=== PATIENT | male | born 1945 | race Caucasian/White ===

== ENCOUNTER 2017-04-13 23:11 | Emergency (ER) | payer MEDICARE ==
[~2017-04-13] VITALS: Ht 172.7 cm; Wt 74.8 kg
[~2017-04-13 23:11] MED LIST: DOXA4TAB2 PO; HYDR-3714 PO; IBUP800T26 PO; SIMV20TA3 PO; ZOCOR
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
[2017-04-13] MEDS ORDERED: NS IV 1000 ML 1,000 ML IV ONE (23:49)
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
[2017-04-14] LABS: BASOPHILS % (AUTO) 0 % (0-10); EOSINOPHILS # (AUTO) 0.1 10^3/uL (0.0-0.3); EOSINOPHILS % (AUTO) 1 % (0-10); HEMATOCRIT 42 % (40-54); HEMOGLOBIN 13.8 G/DL (13.3-17.7); LYMPHOCYTES # (AUTO) 1.8 X 10^3 (1.0-4.0); LYMPHOCYTES % (AUTO) 22 % (12-44); MEAN CORPUSCULAR HEMOGLOBIN 30 PG (25-34); MEAN CORPUSCULAR HGB CONC 33 G/DL (32-36); MEAN CORPUSCULAR VOLUME 91 FL (80-99); MEAN PLATELET VOLUME 10.3 FL (7.4-10.4); MONOCYTES # (AUTO) 0.8 X 10^3 (0.0-1.0); MONOCYTES % (AUTO) 10 % (0-12); NEUTROPHILS # (AUTO) 5.5 X 10^3 (1.8-7.8); NEUTROPHILS % (AUTO) 67 % (42-75); PLATELET COUNT 230 10^3/uL (130-400); RED BLOOD COUNT 4.65 10^6/uL (4.35-5.85); RED CELL DISTRIBUTION WIDTH 13.2 % (10.0-14.5); WHITE BLOOD COUNT 8.2 10^3/uL (4.3-11.0)
[2017-04-14] MEDS ORDERED: IOHEXOL 350 MG/ML 100 ML (OMNIPAQUE 350) VIAL IV ONE
[2017-04-14] MEDS ORDERED: NS 100 ML (IVPB) BAG IV ONE
[2017-04-14 00:09] LABS: INR 0.9 (0.8-1.4); PROTHROMBIN TIME PATIENT 11.9 SEC (12.2-14.7)
[2017-04-14 00:21] LABS: ALBUMIN 3.7 GM/DL (3.2-4.5); BILIRUBIN,TOTAL 0.3 MG/DL (0.1-1.0); CALCIUM 8.6 MG/DL (8.5-10.1); CREATININE SERUM 1.36 MG/DL (0.60-1.30); POTASSIUM 4.2 MMOL/L (3.6-5.0); TOTAL PROTEIN 6.9 GM/DL (6.4-8.2)
[2017-04-14 00:42] LABS: BILIRUBIN,URINE NEGATIVE (NEGATIVE); CLARITY,URINE CLEAR; COLOR,URINE YELLOW; GLUCOSE, URINE (UA) NEGATIVE (NEGATIVE); KETONES,URINE NEGATIVE (NEGATIVE); LEUKOCYTE ESTERASE ,URINE NEGATIVE (NEGATIVE); NITRITE,URINE NEGATIVE (NEGATIVE); PH,URINE 7 (5-9); PROTEIN,URINE 2+ (NEGATIVE); UROBILINOGEN,URINE NORMAL (NORMAL)
[2017-04-14 01:02] LABS: BACTERIA,URINE TRACE /HPF
[2017-04-14] MEDS ORDERED: KETOROLAC 30 MG/ML VIAL IVP ONE (01:15)
[2017-04-14] MEDS ORDERED: morphine INJ 10 MG/ML 1ML (SYR OR VIAL) IVP STA (01:30)
[2017-04-14] MEDS ORDERED: NAPR500T4 PO (02:17)
[2017-04-14] MEDS ORDERED: CYCL10TA9 PO (02:17)
[2017-04-14] MEDS ORDERED: ACHD5005 PO (02:17)
[2017-04-14 02:18] VITALS: BP 158/91
[2017-04-14] MEDS ORDERED: WALK1EAC23 MC (02:18)
--- NOTE | 2017-04-14 06:44 | Diagnostic Imaging Report ---
PROCEDURE: CT head and CT cervical spine without contrast. TECHNIQUE: Multiple contiguous axial images were obtained through the brain and cervical spine without the use of intravenous contrast. Sagittal and coronal reformations through the cervical spine were then performed. INDICATION: Pain, injury. FINDINGS: Head: There is no hemorrhage, hydrocephalus, edema, mass or mass effect. Orbits, sinuses and calvarium nonacute. CT CERVICAL SPINE: Degenerative changes are greatest at the C5-C6 level. No traumatic malalignment or fracture. No paravertebral hemorrhage. No high-grade canal stenosis. IMPRESSION: CT HEAD: No hemorrhage or acute pathology. CT CERVICAL SPINE: Degenerative changes without fracture or traumatic malalignment. Agree with preliminary. Dictated by: Dictated on workstation # [id number]
--- NOTE | 2017-04-14 06:50 | Diagnostic Imaging Report ---
INDICATION: Injury, fall, left-sided pain Thoracolumbar vertebral body heights are maintained. The alignment anatomic. No fracture or dislocation. No evidence for paravertebral hemorrhage. Wxnf-cl-isysppuw degenerative changes throughout the spine are present visualized portions of the sacrum nonacute. Partially visualized bilateral rib segments intact. No visualized dependent pleural fluid. IMPRESSION: No thoracolumbar spinal fracture or traumatic malalignment apparent at CT. Agree with the preliminary. Dictated by: Dictated on workstation # [id number]
--- NOTE | 2017-04-14 07:05 | Diagnostic Imaging Report ---
PROCEDURE: CT chest, abdomen, and pelvis with contrast. TECHNIQUE: Multiple contiguous axial images were obtained through the chest, abdomen, and pelvis after the administration of intravenous contrast. INDICATION: Fall landing on the left side of the body, pain. FINDINGS: CHEST: There is very mild left basilar partial atelectasis. No findings felt suggestive of a lung contusion or pulmonary laceration. Aorta is unremarkable. There is no pericardial or mediastinal hemorrhage. No pneumothorax. No chest wall fracture deformity identified. No lung mass. Abdomen and pelvis: There is intramuscular hematoma with active extravasation of contrast in the left gluteus medius musculature. At this time this does not result in a substantial mass effect or large hematoma. No sapgu-nojvr-dd extraperitoneal pelvic hemorrhage. There is no hemoperitoneum. Multiple gallstones are present. The liver, spleen, adrenals and pancreas otherwise unremarkable. The kidneys are unobstructed and normal. The bladder is intact. There is no bowel obstruction. The osseous structures of the abdomen and pelvis showed no fracture. There are degenerative changes involving left greater than right hips. IMPRESSION: Chest: Mild left basilar atelectasis otherwise negative. Abdomen and pelvis: Active contrast extravasation in the left gluteus medius muscle at this time. This has not formed a substantial hematoma but warrants close clinical followup. No visualized fracture. There are no findings of abdominopelvic solid or hollow visceral injury. Cholelithiasis noted. Spoken with the ER physician at the time of this dictation. Dictated by: Dictated on workstation # [id number]
--- NOTE | 2017-04-14 07:30 | Diagnostic Imaging Report ---
INDICATION: Fall. Left-sided pain including shoulder. 3 views right shoulder. FINDINGS: Glenohumeral joint is in good alignment. Joint spaces well preserved. Articulating surfaces are smooth. AC joint shows good alignment. There are no fractures. No significant degenerative changes. IMPRESSION: Negative right shoulder. Dictated by: Dictated on workstation # [id number]
--- NOTE | 2017-04-14 07:34 | Diagnostic Imaging Report ---
INDICATION: Fall from ladder left-sided shoulder and chest pain. FINDINGS: Portable chest show the lungs to be well-aerated. There are no infiltrates. No pneumothorax or pleural effusion. No rib fractures demonstrated. Heart is not enlarged. No pulmonary edema. Clavicles appear intact. IMPRESSION: Negative portable chest. Dictated by: Dictated on workstation # [id number]
--- NOTE | 2017-04-14 07:36 | Diagnostic Imaging Report ---
INDICATION: Fell from ladder. Hip pain on the left. EXAMINATION: AP pelvis with two views of the left hip. FINDINGS: Bony pelvis appears intact. SI joints are symmetrical with moderate sclerosis. Pubic symphysis appears normal. Right hip is in good alignment. Left hip shows good alignment. There is narrowing of joint space with sclerosis and subcortical cystic changes along the acetabulum and weightbearing surface of the left femoral head. Mild hypertrophic changes along the inferior femoral neck. There are no fractures. IMPRESSION: Finding consistent with moderate osteoarthritic disease of the hip without acute abnormalities. Dictated by: Dictated on workstation # [id number]
--- NOTE | 2017-04-14 07:42 | Diagnostic Imaging Report ---
INDICATION: Fall with left shoulder pain. EXAMINATION: Two views of the left shoulder with AP and scapular Y-view. FINDINGS: The glenohumeral joint is in good alignment. No fractures or dislocations demonstrated. Scapula appears intact. AC joint shows moderate hypertrophy. IMPRESSION: Moderate degenerative changes with no acute abnormalities. Dictated by: Dictated on workstation # [id number]
== END 2017-04-14 02:18 | disposition home or self-care (01) ==
LOC: EDUNIT# 23:11 → ER 23:12
DX: S09.90XA Unspecified injury of head, initial encounter (principal); S39.012A Strain of muscle, fascia and tendon of lower back, initial encounter; S30.0XXA Contusion of lower back and pelvis, initial encounter; S30.1XXA Contusion of abdominal wall, initial encounter; S40.012A Contusion of left shoulder, initial encounter; E78.00 Pure hypercholesterolemia, unspecified; R40.2142 Coma scale, eyes open, spontaneous, at arrival to emergency department; R40.2252 Coma scale, best verbal response, oriented, at arrival to emergency department; R40.2362 Coma scale, best motor response, obeys commands, at arrival to emergency department; Z85.46 Personal history of malignant neoplasm of prostate; Z90.79 Acquired absence of other genital organ(s); W18.30XA Fall on same level, unspecified, initial encounter
CPT/HCPCS: 36415; 70450; 71045; 71260; 72125; 72128; 72131; 73030; 74177; 80053; 81000; 85025; 85610; 85730; 96361; 96374; 96375

== ENCOUNTER 2020-02-15 09:32 | Emergency (ER) | payer OTHER, MEDICARE ==
[~2020-02-15] VITALS: Ht 172 cm; Wt 77.1 kg
[~2020-02-15 09:32] MED LIST changes: +ACHD5005 PO; +CYCL10TA9 PO; +NAPR-915 PO; +WALK1EAC23 MC
--- NOTE | 2020-02-15 10:28 | ED General ---
General Stated Complaint: FEVER, CONGESTION, SOB Source of Information: Patient Exam Limitations: No Limitations History of Present Illness Date Seen by Provider: Feb 15, 2020 Time Seen by Provider: 10:00 Initial Comments Mr. Ruff is a 75-year-old male who presents to the emergency room today with a chief complaint of subjective fever and some nasal congestion. Patient states that he was sitting in his recliner chair at 730 last night and noticed that he could not breathe at all out of the right side of his nose. Patient states that he feels like he had a little bit of a "cold" that settled in his nasal passageways and caused a little bit of subjective fever. Patient states he did not have a thermometer and did not check his temperature but thinks his temperature might have been somewhere around "99". Patient denies any productive cough or shortness of breath. After noticing his symptoms [facility] come to [facility] emergency room for evaluation. He denies any change in taste or smell. He denies any GI or symptoms although about 5 days ago he had a little bout of diarrhea that has since resolved. Patient denies any sick contacts with COVID-19. All other review of systems reviewed and negative except as stated above. Timing/Duration: 12-24 Hours Severity: Mild Associated Systoms: Fever/Chills (Subjective) Allergies and Home Medications Allergies Coded Allergies: No Known Drug Allergies (Unverified , 09/06/13) Home Medications Cyclobenzaprine HCl 10 Mg Tablet, 10 MG PO Q8H Prescribed by: LUCIA OLIVIER on 04/14/17216 Hydrocodone Bit/Acetaminophen 1 Tab Tab, 1 EACH PO Q4H Prescribed by: LUCIA OLIVIER on 04/14/17216 Naproxen 500 Mg Tablet, 500 MG PO BID Prescribed by: LUCIA OLIVIER on 04/14/17216 Simvastatin 20 Mg Tablet, 20 MG PO DAILY, (Reported) Patient Home Medication List Home Medication List Reviewed: Yes Review of Systems Review of Systems Constitutional: no symptoms reported, see HPI EENTM: no symptoms reported, nose congestion Respiratory: other (Nasal congestion) Cardiovascular: no symptoms reported Gastrointestinal: no symptoms reported Genitourinary: no symptoms reported Musculoskeletal: no symptoms reported Skin: no symptoms reported All Other Systems Reviewed Negative Unless Noted: Yes Past Xxyxknt-Nibzcr-Jvvgva Hx Patient Social History 2nd Hand Smoke Exposure: No Recent Foreign Travel: No Contact w/Someone Who Travel: No Recent Hopitalizations: No Seasonal Allergies Seasonal Allergies: No Past Medical History Surgeries: Yes Orthopedic, Prostatectomy Respiratory: No Cardiac: Yes High Cholesterol Neurological: No Prostate Problems Gastrointestinal: No Musculoskeletal: Yes Back Injury Endocrine: No Cancer: Yes Prostate Did You Recieve Any Treatments: Yes What Type of Treatment Did You: Surgical Intervention Psychosocial: No Integumentary: No Blood Disorders: No Physical Exam Vital Signs Capillary Refill : Height, Weight, BMI Height: 5'8" Weight: 165lbs. oz. 74.655697qa; BMI Method:Stated General Appearance: No Apparent Distress, WD/WN Eyes: Bilateral Eye Normal Inspection, Bilateral Eye PERRL, Bilateral Eye EOMI HEENT: PERRL/EOMI, TMs Normal, Normal ENT Inspection, Pharynx Normal Respiratory: Lungs Clear, Normal Breath Sounds, No Accessory Muscle Use, No Respiratory Distress Cardiovascular: Regular Rate, Rhythm Skin: Normal Color, Warm/Dry Progress/Results/Core Measures Suspected Sepsis SIRS Temperature: Pulse: Respiratory Rate: Blood Pressure / Mean: Results/Orders Vital Signs/I&O Capillary Refill : Progress Note : Time: 10:25 Progress Note 75-year-old male presents with a chief complaint of nasal congestion and subjective fever. Evaluation today includes a physical exam. The patient overall appears very healthy and well. He has no persistent complaints of nasal congestion. He believes that he might of just had a mild cold. Patient has no clinical or objective findings to warrant further investigation from the emergency department. I do not believe that he is infected with coronavirus at this time and does not require testing. He does not meet any criteria in for chest x-ray or extensive laboratory testing. Patient is comfortable with the plan of care which includes discharge to home with conservative treatment with decongestants and Vicks vapor rub. Patient verbalizes understanding, all questions are sought and answered he is stable for discharge. Departure Impression Primary Impression: Nasal congestion Disposition: 01 HOME, SELF-CARE Condition: Stable Departure-Patient Inst. Decision time for Depature: 10:26 Referrals: DINESH FLORES MD (PCP/Family) Primary Care Physician Patient Instructions: Cough, Runny Nose, and the Common Cold Add. Discharge Instructions: Drink plenty of fluids to stay well-hydrated. An hikl-eig-aeblyuk decongestant may be useful for your symptoms. Also Vicks vapor rub may help with nasal congestion. If you have any worsening symptoms including shortness of breath, high fever, chest pain or other emergent concerns please come back to the emergency department for reevaluation. FRANCES AUGUSTINE MD Feb 15, 2020 10:28
[2020-02-15 10:36] VITALS: BP 172/94
== END 2020-02-15 10:36 | disposition home or self-care (01) ==
LOC: EDUNIT# 09:32 → ER 09:34
DX: R09.81 Nasal congestion (principal); E78.00 Pure hypercholesterolemia, unspecified; Z85.46 Personal history of malignant neoplasm of prostate
CPT/HCPCS: 99283

== ENCOUNTER 2022-01-05 20:12 | Inpatient (IN) | payer OTHER, MEDICARE ==
[~2022-01-05] VITALS: Ht 173 cm; Wt 76.0 kg
[~2022-01-05 20:12] MED LIST changes: +CYCL10TA25 PO; -CYCL10TA9 PO
[2022-01-05] MEDS ORDERED: LABETALOL HCL 20 MG/4 ML VIAL IV ONE (20:30)
[2022-01-05 20:34] LABS: BASOPHILS % (AUTO) 0 % (0-10); EOSINOPHILS # (AUTO) 0.2 10^3/uL (0.0-0.3); EOSINOPHILS % (AUTO) 2 % (0-10); HEMATOCRIT 44 % (40-54); HEMOGLOBIN 14.2 g/dL (13.3-17.7); LYMPHOCYTES # (AUTO) 2.3 10^3/uL (1.0-4.0); LYMPHOCYTES % (AUTO) 33 % (12-44); MEAN CORPUSCULAR HEMOGLOBIN 30 pg (25-34); MEAN CORPUSCULAR HGB CONC 32 g/dL (32-36); MEAN CORPUSCULAR VOLUME 92 fL (80-99); MEAN PLATELET VOLUME 10.5 fL (9.0-12.2); MONOCYTES # (AUTO) 0.6 10^3/uL (0.0-1.0); MONOCYTES % (AUTO) 9 % (0-12); NEUTROPHILS % (AUTO) 56 % (42-75); PLATELET COUNT 220 10^3/uL (130-400); WHITE BLOOD COUNT 7.1 10^3/uL (4.3-11.0)
[2022-01-05 20:46] LABS: FIBRIN DEGRADATION PRODUCTS 0.83 UG/ML (0.00-0.49); INR 0.9 (0.8-1.4); PROTHROMBIN TIME PATIENT 12.3 SEC (12.2-14.7)
[2022-01-05] MEDS ORDERED: hydrALAZINE (APESOLINE) 20 MG/ML VIAL IV ONE ×2 (21:00→22:15)
--- NOTE | 2022-01-05 21:10 | Diagnostic Imaging Report ---
PROCEDURE: CT head wo r/o stroke. TECHNIQUE: Multiple contiguous axial images were obtained through the brain without the use of intravenous contrast. Auto Exposure Controls were utilized during the CT exam to meet ALARA standards for radiation dose reduction. INDICATION: Neurologic deficit COMPARISON: 04/14/2017 The ventricles and sulci are slightly increased in prominence however no hemorrhage is identified. There is no abnormal mass effect or shift of midline structures. Mucous retention cyst or polyp is again noted within the right maxillary sinus. There is partial opacification of right mastoid air cells. Periapical lucencies are seen involving anterior teeth. IMPRESSION: Further volume loss in the brain which may be related to chronic microvascular ischemia. No acute intracranial abnormality identified. There is progressive worsening of dentition and clinical correlation would be useful. Dictated by: Dictated on workstation # [id number]
--- NOTE | 2022-01-05 21:16 | Diagnostic Imaging Report ---
INDICATION: Hypertension AP view of chest is obtained with comparison made to study of 04/14/2017. FINDINGS: Heart size and pulmonary vascularity are within normal limits, and the lungs are clear, bilaterally. IMPRESSION: Unremarkable chest. Dictated by: Dictated on workstation # [id number]
[2022-01-05 21:18] LABS: ALANINE AMINOTRANSFERASE 16 U/L (0-55); ALBUMIN 4.1 GM/DL (3.2-4.5); ALKALINE PHOSPHATASE 88 U/L (40-136); BILIRUBIN,TOTAL 0.6 MG/DL (0.1-1.0); BUN/CREATININE RATIO 16; CALCIUM 9.2 MG/DL (8.5-10.1); CARBON DIOXIDE 25 MMOL/L (21-32); CHLORIDE 108 MMOL/L (98-107); CREATINE KINASE 88 U/L (30-200); CREATININE SERUM 1.22 MG/DL (0.60-1.30); GFR ESTIMATED 61; GLUCOSE 80 MG/DL (70-105); MAGNESIUM 1.9 MG/DL (1.6-2.4); POTASSIUM 4.1 MMOL/L (3.6-5.0); SODIUM 144 MMOL/L (135-145); TOTAL PROTEIN 7.6 GM/DL (6.4-8.2)
[2022-01-05] MEDS ORDERED: NS IV 1000 ML 1,000 ML IV SCH (21:30)
[2022-01-05 21:39] LABS: TSH (THYROID ANALYZER) 4.18 UIU/ML (0.35-4.94)
[2022-01-05] MEDS ORDERED: CATHETER FLUSH 10 ML SYR IV PRN (21:45)
[2022-01-05] MEDS ORDERED: IOHEXOL 350 MG/ML 100 ML (OMNIPAQUE 350) VIAL IV ONE (21:45)
[2022-01-05] MEDS ORDERED: NS 100 ML (IVPB) BAG IV ONE (21:45)
--- NOTE | 2022-01-05 21:56 | Diagnostic Imaging Report ---
PROCEDURE: CT angiography of the head and CT angiography of the neck with and without contrast. TECHNIQUE: Contiguous noncontrast images were obtained from the skull base through the vertex. After intravenous contrast administration, helical CT angiography of the neck was performed. Source data was reformatted into 3D MIP projections. Delayed post contrast acquisition was also obtained. Auto Exposure Controls were utilized during the CT exam to meet ALARA standards for radiation dose reduction. INDICATION: Dizziness There is a normal three-vessel branching pattern arising from the aortic arch. Carotid arteries are widely patent in the neck. Both vertebral arteries are also patent. There is no evidence of stenosis or occlusion. No intimal abnormality is identified. There is no evidence of pseudoaneurysm. There is mild lower cervical degenerative disc disease with fusion of the right C2-C3 facet joint. Anterior, middle and posterior cerebral arteries are of normal caliber without evidence of filling defect, occlusion or stenosis. No aneurysm or vascular malformation is identified. There is no abnormal contrast enhancement within the brain parenchyma. IMPRESSION: No CTA evidence of great vessel abnormality in the head or neck. Dictated by: Dictated on workstation # [id number]
[2022-01-05 23:35] VITALS: BP 183/85
[2022-01-06] MEDS ORDERED: SALINE NASAL SPRAY (OCEAN) 45 ML BTL PRN (00:45)
[2022-01-06] MEDS ORDERED: ETODOLAC 300 MG (LODINE) CAP PO PRN (00:45)
[2022-01-06] MEDS ORDERED: METHYL SALICYLATE/MENTHOL (BENGAY, MUSCLE RUB) 3 OZ TUBE TP PRN (00:45)
[2022-01-06] MEDS ORDERED: HYDROcodone/APAP 5 MG/325 MG (LORTAB) TAB PO PRN (00:45)
--- NOTE | 2022-01-06 00:57 | Tele-ICU Progress Note ---
Progress Note 76M with HTN presented with dizziness. Found to have BP 236/99. Given hydralazine 10 mg x2 doses with brief dips in BP before increasing back to the 220-240 range. Plans made for admission to ICU for cardene drip. On arrival to ICU BP 160-190, cardene not yet initiated. - hypertensive emergency: BP goal for first 24 hours 160-180. Current BP 166/81. Will hold off on initiation of the drip. PRN hydralazine ordered. Restart home lisinopril in AM. - back pain: continue home etodolac if availble from pharmacy. If not, ibuprofen. Will also order PRN benjamín Monroy. Focused Exam Height, Weight, BMI Height: 5'8" Weight: 165lbs. oz. 74.648095ks; 25.15 BMI Method:Stated PANDA CORONA MD Jan 06, 2022 00:57
[2022-01-06] MEDS: niCARdipine IV (Pyxis drip kit 50 MG in NS (IVPB) 230 ML IV SCH ×3 (01:23→16:12)
[2022-01-06] MEDS: hydrALAZINE (APESOLINE) 20 MG/ML VIAL IV PRN ×3 (02:39→16:05)
[2022-01-06] MEDS ORDERED: CALCIUM CARBONATE 500 MG (TUMS) TAB.CHEW PO PRN (04:15)
[2022-01-06 04:24] LABS: BASOPHILS % (AUTO) 0 % (0-10); EOSINOPHILS # (AUTO) 0.1 10^3/uL (0.0-0.3); EOSINOPHILS % (AUTO) 1 % (0-10); HEMATOCRIT 43 % (40-54); HEMOGLOBIN 14.2 g/dL (13.3-17.7); LYMPHOCYTES # (AUTO) 1.3 10^3/uL (1.0-4.0); LYMPHOCYTES % (AUTO) 13 % (12-44); MEAN CORPUSCULAR HEMOGLOBIN 30 pg (25-34); MEAN CORPUSCULAR HGB CONC 33 g/dL (32-36); MEAN CORPUSCULAR VOLUME 91 fL (80-99); MONOCYTES # (AUTO) 0.6 10^3/uL (0.0-1.0); MONOCYTES % (AUTO) 6 % (0-12); NEUTROPHILS % (AUTO) 80 % (42-75); PLATELET COUNT 207 10^3/uL (130-400)
[2022-01-06] MEDS ORDERED: NS IV 500 ML 500 ML IV PRN (04:30)
[2022-01-06 04:51] LABS: ALBUMIN 3.8 GM/DL (3.2-4.5); BILIRUBIN,TOTAL 0.6 MG/DL (0.1-1.0); CALCIUM 9.1 MG/DL (8.5-10.1); CREATININE SERUM 0.95 MG/DL (0.60-1.30); MAGNESIUM 1.8 MG/DL (1.6-2.4); PHOSPHORUS 1.7 MG/DL (2.3-4.7); POTASSIUM 3.7 MMOL/L (3.6-5.0)
[2022-01-06] MEDS ORDERED: morphine INJ 10 MG/ML 1ML (SYR OR VIAL) IVP STA (04:54)
[2022-01-06] MEDS ORDERED: oxyCODONE/APAP 5/325MG (PERCOCET 5) TABLET PO PRN (05:00)
[2022-01-06] MEDS: FAMOTIDINE 20 MG (PEPCID) TABLET PO SCH ×2 (05:25→21:30)
[2022-01-06] MEDS ORDERED: ONDANSETRON 4 MG/2 ML (SDV) Z0FRAN IVP PRN (05:45)
[2022-01-06] MEDS ORDERED: OXYMETAZOLINE (AFRIN) 0.05% NA 30 ML BTL PRN (05:45)
[2022-01-06] MEDS: POTASSIUM CL 10MEQ/50ML IVPB 50 ML IV SCH (05:56)
[2022-01-06] MEDS: MAGNESIUM 1 GM/100 ML IVPB 100 ML IV SCH (05:56)
[2022-01-06] MEDS: KCL 20 MEQ TAB (K-DUR) PO SCH (05:57)
[2022-01-06] MEDS: CATHETER FLUSH 10 ML SYR IVP SCH ×3 (05:57→20:16)
[2022-01-06] MEDS ORDERED: FLU QUAD HIGH DOSE 240 MCG/0.7 ML 2022-23 (FLUZONE) IM ONE (06:45)
[2022-01-06] MEDS: lisINopril 20 MG (PRINIVIL) TABLET PO SCH (08:03)
[2022-01-06] MEDS ORDERED: amLODIPine 5 MG (NORVASC) TAB PO SCH (09:00)
[2022-01-06] MEDS ORDERED: amLODIPine 5 MG (NORVASC) TAB PO NR (09:00)
[2022-01-06] MEDS ORDERED: meTOproloL SUCCINATE 50 MG (TOPROL XL) TAB PO NR (11:00)
[2022-01-06] MEDS ORDERED: ASPIRIN 81 MG CHEW (CHILDREN'S ASA) PO NR (11:00)
--- NOTE | 2022-01-06 11:07 | Consultation-Cardiology ---
HPI-Cardiology Cardiology Consultation: Date of Consultation 01/06/22 Time Seen by a Provider: 10:30 Date of Admission 01-06-22 Attending Physician Bing,[facility] Physician Admitting Physician Admitting Physician: Gaby Orr DO Attending Physician: Gaby Orr DO Consulting Physician Nancie Ascencio MD HPI: Chief Complaint: NSTEMI Mr. Ruff is a 76 yr old male who has been admitted to ICU 3 from the ED with c/o chest pressure, SOB and uncontrolled HTN. He reports he has chronic HTN. He reports his Lisinopril dose was just increased recently to 40mg daily. He states he took his BP on Wednesday morning and noted it to be 140's systolic. He reports he was getting laundry out of the washing machine on Wednesday night when he had a sudden onset of dizziness. He reports he developed chest tightness and SOB. He reports he had numbness in his left hand. He reports he checked his BP and noted it to be greater than 200 systolic. He called his daughter to take him to the ED. He reports the chest pressure and SOB persisted. He reports it did not change with movement. He states once in the ED he received Morphine IV, which did relive his chest pain. He is currently pain free. He reports n/v this morning. He is reporting some mild SOB at this time. Review of Systems-Cardiology Review of Systems Constitutional: No chills, No fever, No malaise Eyes: No vision change Ears/Nose/Throat: No epistaxis, No recent hearing loss Respiratory: As described under HPI Cardiovascular: As described under HPI Gastrointestinal: As described under HPI Genitourinary: No dysuria, No hematuria Skin: No rash on exposed areas, No ulcerations on exposed areas Psychiatric/Neurological: anxiety; No depression, No seizure, No focal weakness, No syncope Hematologic: No bleeding abnormalities TCB-[id number]-Csxqfi Hx Patient Social History Smoking Status: Never a Smoker Former smoker/When Quit: Jun 26, 1981 2nd Hand Smoke Exposure: No Have you traveled recently?: No Alcohol Use?: No Pt feels they are or have been: No Past Medical History PMH As described under Assessment. Family Medical History Family Medical History: He reports his mother passed from an [facility] at age 67yrs. He reports a sister who has had a stroke. Allergies and Home Medications Allergies Coded Allergies: No Known Drug Allergies (Unverified , 09/06/13) Patient Home Medication List Cyclobenzaprine HCl (Cyclobenzaprine HCl) 10 Mg Tablet, 10 MG PO Q8H Prescribed by: LUCIA OLIVIER on 04/14/17216 Doxazosin Mesylate (Doxazosin Mesylate) 4 Mg Tablet, 4 MG PO, (Reported) Entered as Reported by: MATT ART on 09/06/13 1032 Hydrocodone Bit/Acetaminophen (Lortab 5 Mg Tablet) 1 Tab Tab, 1 EACH PO Q4H Prescribed by: LUCIA OLIVIER on 04/14/17216 Naproxen (Naproxen) 500 Mg Tablet, 500 MG PO BID Prescribed by: LUCIA OLIVIER on 04/14/17216 Simvastatin (Simvastatin) 20 Mg Tablet, 20 MG PO DAILY, (Reported) Entered as Reported by: BASIM RODRIGUEZ on 06/26/14 1210 Walker (Ultra-Light Rollator) 1 Each Each, EACH [facility], (DME) Prescribed by: LUCIA OLIVIER on 04/14/17217 Physical Exam-Cardiology Physical Exam Vital Signs/I&O 01/06/22 01/06/22 01/06/22 01/06/22 03:57 04:00 04:00 05:00 Temp 37.0 Pulse 78 129 B/P (MAP) 174/85 (114) 189/88 (121) Pulse Ox 97 98 97 O2 Delivery Room Air Room Air Room Air 01/06/22 01/06/22 01/06/22 01/06/22 06:00 07:00 07:21 07:59 Temp 36.8 Pulse 63 60 66 B/P (MAP) 145/74 (97) 169/81 (110) Pulse Ox 98 O2 Delivery Room Air Room Air 01/06/22 01/06/22 01/06/22 01/06/22 08:00 08:00 09:00 10:00 Pulse 67 67 74 B/P (MAP) 165/77 (106) 167/82 (110) 178/81 (113) Pulse Ox 98 97 99 98 O2 Delivery Room Air Room Air Room Air Room Air 01/06/22 01/06/22 01/06/22 11:51 12:00 12:19 Temp 36.6 Pulse 82 Pulse Ox 98 O2 Delivery Room Air 01/05/22 23:59 Intake Total 1000 ml Balance 1000 ml Capillary Refill : Less Than 3 Seconds Constitutional: AAO x 3, well-developed, well-nourished HEENT: hearing is well preserved; No oral hygience is good (poor dention with missing teeth) Neck: No carotid bruit; carotid pulses are 2 + bilaterally Respiratory: No accessory muscle use, No respiratory distress; chest expansion is symmetric, chest is bilaterally symmetric, lungs clear to auscultation Cardiovascular: regular rate-rhythm; No JVD; S1 and S2 Gastrointestinal: No tender; soft, round, audible bowel sounds Extremities: no lower extremity edema bilateral Neurologic/Psychiatric: grossly intact (moves all extremities) Skin: No rash on exposed areas, No ulcerations on exposed areas Data Review Labs Laboratory Tests 01/05/22 20:20: White Blood Count 7.1, Red Blood Count 4.81, Hemoglobin 14.2, Hematocrit 44, Mean Corpuscular Volume 92, Mean Corpuscular Hemoglobin 30, Mean Corpuscular Hemoglobin Concent 32, Red Cell Distribution Width 12.4, Platelet Count 220, Mean Platelet Volume 10.5, Immature Granulocyte % (Auto) 0, Neutrophils (%) (Auto) 56, Lymphocytes (%) (Auto) 33, Monocytes (%) (Auto) 9, Eosinophils (%) (Auto) 2, Basophils (%) (Auto) 0, Neutrophils # (Auto) 4.0, Lymphocytes # (Auto) 2.3, Monocytes # (Auto) 0.6, Eosinophils # (Auto) 0.2, Basophils # (Auto) 0.0, Immature Granulocyte # (Auto) 0.0, Prothrombin Time 12.3, INR Comment 0.9, Activated Partial Thromboplast Time 33, D-Dimer 0.83H, Sodium Level 144, Potassium Level 4.1, Chloride Level 108H, Carbon Dioxide Level 25, Anion Gap 11, Blood Urea Nitrogen 20H, Creatinine 1.22, Estimat Glomerular Filtration Rate 61, BUN/Creatinine Ratio 16, Glucose Level 80, Calcium Level 9.2, Corrected Calcium 9.1, Magnesium Level 1.9, Total Bilirubin 0.6, Aspartate Amino Transf (AST/SGOT) 18, Alanine Aminotransferase (ALT/SGPT) 16, Alkaline Phosphatase 88, Total Creatine Kinase 88, Creatine Kinase MB 2.0, Myoglobin 51.7, Troponin I < 0.028, B-Type Natriuretic Peptide 50.5, Total Protein 7.6, Albumin 4.1, TSH [place] sting 4.18 01/05/22 20:30: Influenza Type A (RT-PCR) Not Detected, Influenza Type B (RT-PCR) Not Detected, SARS-CoV-2 RNA (RT-PCR) Not Detected 01/06/22 04:06: White Blood Count 10.0, Red Blood Count 4.73, Hemoglobin 14.2, Hematocrit 43, Mean Corpuscular Volume 91, Mean Corpuscular Hemoglobin 30, Mean Corpuscular Hemoglobin Concent 33, Red Cell Distribution Width 12.5, Platelet Count 207, Mean Platelet Volume 11.0, Immature Granulocyte % (Auto) 0, Neutrophils (%) (Auto) 80H, Lymphocytes (%) (Auto) 13, Monocytes (%) (Auto) 6, Eosinophils (%) (Auto) 1, Basophils (%) (Auto) 0, Neutrophils # (Auto) 8.0H, Lymphocytes # (Auto) 1.3, Monocytes # (Auto) 0.6, Eosinophils # (Auto) 0.1, Basophils # (Auto) 0.0, Immature Granulocyte # (Auto) 0.0, Sodium Level 142, Potassium Level 3.7, Chloride Level 110H, Carbon Dioxide Level 19L, Anion Gap 13, Blood Urea Nitrogen 15, Creatinine 0.95, Estimat Glomerular Filtration Rate 83, BUN/Creatinine Ratio 16, Glucose Level 131H, Calcium Level 9.1, Corrected Calcium 9.3, Magnesium Level 1.8, Total Bilirubin 0.6, Aspartate Amino Transf (AST/SGOT) 17, Alanine Aminotransferase (ALT/SGPT) 16, Alkaline Phosphatase 102, Troponin I 0.731*H, Total Protein 7.0, Albumin 3.8, Phosphorus Level 1.7L Radiology NAME: WINIFRED RUFF [facility] REC#: [id number] PT STATUS: REG ER : 1945 PHYSICIAN: LUCIA OLIVIER DO ADMIT DATE: 01/05/22/ER Signed Date of Exam:01/05/22 CHEST 1 VIEW, AP/PA ONLY INDICATION: Hypertension AP view of chest is obtained with comparison made to study of 04/14/2017. FINDINGS: Heart size and pulmonary vascularity are within normal limits, and the lungs are clear, bilaterally. IMPRESSION: Unremarkable chest. Dictated by: Dictated on workstation # [id number] Dict: 01/05/222112 Trans: 01/05/222128 [facility] [phone] Interpreted by: KULDIP VILLAGRAN MD Electronically signed by: KULDIP VILLAGRAN MD 01/05/222128 NAME: WINIFRED RUFF [facility] REC#: [id number] PT STATUS: ADM IN : 1945 PHYSICIAN: LUCIA OLIVIER DO ADMIT DATE: 01/05/22/ICU Signed Date of Exam:01/05/22 CT HEAD WO-R/O STROKE PROCEDURE: CT head wo r/o stroke. TECHNIQUE: Multiple contiguous axial images were obtained through the brain without the use of intravenous contrast. Auto Exposure Controls were utilized during the CT exam to meet ALARA standards for radiation dose reduction. INDICATION: Neurologic deficit COMPARISON: 04/14/2017 The ventricles and sulci are slightly increased in prominence however no hemorrhage is identified. There is no abnormal mass effect or shift of midline structures. Mucous retention cyst or polyp is again noted within the right maxillary sinus. There is partial opacification of right mastoid air cells. Periapical lucencies are seen involving anterior teeth. IMPRESSION: Further volume loss in the brain which may be related to chronic microvascular ischemia. No acute intracranial abnormality identified. There is progressive worsening of dentition and clinical correlation would be useful. Dictated by: Dictated on workstation # [id number] Dict: 01/05/222104 Trans: 01/06/22913 [facility] [phone] Interpreted by: KULDIP VILLAGRAN MD Electronically signed by: KULDIP VILLAGRAN MD 01/06/22913 NAME: WINIFRED RUFF [facility] REC#: [id number] PT STATUS: ADM IN : 1945 PHYSICIAN: LUCIA OLIVIER DO ADMIT DATE: 01/05/22/ICU Signed Date of Exam:01/05/22 CT ANGIO HEAD/NECK PROCEDURE: CT angiography of the head and CT angiography of the neck with and without contrast. TECHNIQUE: Contiguous noncontrast images were obtained from the skull base through the vertex. After intravenous contrast administration, helical CT angiography of the neck was performed. Source data was reformatted into 3D MIP projections. Delayed post contrast acquisition was also obtained. Auto Exposure Controls were utilized during the CT exam to meet ALARA standards for radiation dose reduction. INDICATION: Dizziness There is a normal three-vessel branching pattern arising from the aortic arch. Carotid arteries are widely patent in the neck. Both vertebral arteries are also patent. There is no evidence of stenosis or occlusion. No intimal abnormality is identified. There is no evidence of pseudoaneurysm. There is mild lower cervical degenerative disc disease with fusion of the right C2-C3 facet joint. Anterior, middle and posterior cerebral arteries are of normal caliber without evidence of filling defect, occlusion or stenosis. No aneurysm or vascular malformation is identified. There is no abnormal contrast enhancement within the brain parenchyma. IMPRESSION: No CTA evidence of great vessel abnormality in the head or neck. Dictated by: Dictated on workstation # [id number] Dict: 01/05/22 2144 Trans: 01/06/2214 [facility] [phone] Interpreted by: KULDIP VILLAGRAN MD Electronically signed by: KULDIP VILLAGRAN MD 01/06/22 0914 ECG Impression ECG Initial ECG Impression: Sinus Bradycardia A/P-Cardiology Assessment/Admission Diagnosis NSTEMI Uncontrolled HTN HLD - statin tx - [facility] H/O gallstones per pt report H/O tobaccoism - quit greater than 10 yrs ago Emphysema H/O prostate cancer - h/o prostatectomy in 2016 Family h/o CAD - mother passed from [facility] age 67 yrs Discussion and Recomendations NSTEMI - advise cardiac cath. We have discussed the procedure, risks, benefits and potential complications of cardiac cath with possible PCI. He verbalizes understanding and provides informed consent. Uncontrolled HTN - start Toprol XL HLD - continue statin Start ASA Echocardiogram today Monitor lab closely Further recs will be based on his hospital course We would like to thank medical services for this consult BEBO JEFFREY Jan 06, 2022 11:07
--- NOTE | 2022-01-06 11:16 | History & Physical ---
JACKIESHAAN Gottlieb 01/06/22 1116: History of Present Illness History of Present Illness Reason for visit/HPI CC: Dizziness 70yo M with h/o HTN, HLD, and emphysema was admitted to the ICU this morning after presenting to the ED yesterday with acute onset chest tightness and dizziness. Last night, pt experienced an episode of dizziness while bending over to empty the washer causing him to stumble into the washer. Pt states that he has experienced a similar episode a few years ago due to high blood pressure. Pt checked his BP and found it to be greater than 200 systolic, prompting him to go to the ED. In the ED, pt's BP was found to be 236/99. Workup was remarkable for an elevated D-dimer of .83. CXR and CTA head and neck were unremarkable. CT Head was remarkable for volume loss from chronic microvascular ischemia but otherwise no acute intracranial abnormalities were noted. EKG was remarkable for bradycardia. Pt was given 10mg Hydralazine x2 in the ED which did initially lower his BP but exhibited rebound to the 220-240s systolic. Pt was admitted to the ICU for hypertensive urgency. Pt presented to the ICU in the 160-190s systolic, so cardene drip was held and hydralazine was made prn. Overnight, pt experienced nausea, vomiting, VALDERRAMA localized to the sinuses, burning abd pain, and continued chest tightness. All symptoms resolved following administration of IV morphine. Today, workup was remarkable for an elevated troponin of 0.731 suggestive of a type II NSTEMI in the setting of his hypertension. In room, pt is laying comfortably in bed. Pt notes a mild "sinus VALDERRAMA" localized over his f rontal sinuses but otherwise has no complaints. Pt states that he is [place] for [place] and noted that his lisinopril was recently increased from 20mg to 40mg. Pt has not had a BM since admission but continues to void without issue. Pt denies current nausea, vomiting, SOA, CP, abd pain, and diarrhea. Imaging: NAME: WINIFRED DAUGHERTY [facility] REC#: [id number] PT STATUS: REG ER : 1945 PHYSICIAN: LUCIA OLIVIER DO ADMIT DATE: 01/05/22/ER Signed Date of Exam:01/05/22 CHEST 1 VIEW, AP/PA ONLY INDICATION: Hypertension AP view of chest is obtained with comparison made to study of 04/14/2017. FINDINGS: Heart size and pulmonary vascularity are within normal limits, and the lungs are clear, bilaterally. IMPRESSION: Unremarkable chest. Dictated by: Dictated on workstation # [id number] Dict: 01/05/222112 Trans: 01/05/222128 [id number] Interpreted by: KULDIP VILLAGRAN MD Electronically signed by: KULDIP VILLAGRAN MD 01/05/222128 NAME: WINIFRED DAUGHERTY [facility] REC#: [id number] PT STATUS: ADM IN : 1945 PHYSICIAN: LUCIA OLIVIER DO ADMIT DATE: 01/05/22/ICU Signed Date of Exam:01/05/22 CT HEAD WO-R/O STROKE PROCEDURE: CT head wo r/o stroke. TECHNIQUE: Multiple contiguous axial images were obtained through the brain without the use of intravenous contrast. Auto Exposure Controls were utilized during the CT exam to meet ALARA standards for radiation dose reduction. INDICATION: Neurologic deficit COMPARISON: 04/14/2017 The ventricles and sulci are slightly increased in prominence however no hemorrhage is identified. There is no abnormal mass effect or shift of midline structures. Mucous retention cyst or polyp is again noted within the right maxillary sinus. There is partial opacification of right mastoid air cells. Periapical lucencies are seen involving anterior teeth. IMPRESSION: Further volume loss in the brain which may be related to chronic microvascular ischemia. No acute intracranial abnormality identified. There is progressive worsening of dentition and clinical correlation would be useful. Dictated by: Dictated on workstation # [id number] Dict: 01/05/222104 Trans: 01/06/22913 [facility] [id number] Interpreted by: KULDIP VILLAGRAN MD Electronically signed by: KULDIP VILLAGRAN MD 01/06/22913 NAME: OSBALDO DAUGHERTYEL Boone [facility] REC#: [id number] PT STATUS: ADM IN : 1945 PHYSICIAN: LUCIA OLIVIER DO ADMIT DATE: 01/05/22/ICU Signed Date of Exam:01/05/22 CT ANGIO HEAD/NECK PROCEDURE: CT angiography of the head and CT angiography of the neck with and without contrast. TECHNIQUE: Contiguous noncontrast images were obtained from the skull base through the vertex. After intravenous contrast administration, helical CT angiography of the neck was performed. Source data was reformatted into 3D MIP projections. Delayed post contrast acquisition was also obtained. Auto Exposure Controls were utilized during the CT exam to meet ALARA standards for radiation dose reduction. INDICATION: Dizziness There is a normal three-vessel branching pattern arising from the aortic arch. Carotid arteries are widely patent in the neck. Both vertebral arteries are also patent. There is no evidence of stenosis or occlusion. No intimal abnormality is identified. There is no evidence of pseudoaneurysm. There is mild lower cervical degenerative disc disease with fusion of the right C2-C3 facet joint. Anterior, middle and posterior cerebral arteries are of normal caliber without evidence of filling defect, occlusion or stenosis. No aneurysm or vascular malformation is identified. There is no abnormal contrast enhancement within the brain parenchyma. IMPRESSION: No CTA evidence of great vessel abnormality in the head or neck. Dictated by: Dictated on workstation # [id number] Dict: 01/05/224 Trans: 01/06/22913 [facility] [id number] Interpreted by: KULDIP VILLAGRAN MD Electronically signed by: KULDIP VILLAGRAN MD 01/06/2214 Date of Admission Jan 05, 2022 at 22:50 Date Seen by a Provider: Jan 06, 2022 Time Seen by a Provider: 11:16 I consulted on this patient on 01/06/22 11:16 Attending Physician No,Local Physician Admitting Physician Admitting Physician: Gaby Gomez DO Attending Physician: Gaby Gomez DO Consult Allergies and Home Medications Allergies Coded Allergies: No Known Drug Allergies (Unverified , 09/06/13) Patient Home Medication List Home Medication List Reviewed: Yes Cyclobenzaprine HCl (Cyclobenzaprine HCl) 10 Mg Tablet, 10 MG PO Q8H Prescribed by: LUCIA OLIVIER on 04/14/17 0217 Doxazosin Mesylate (Doxazosin Mesylate) 4 Mg Tablet, 4 MG PO, (Reported) Entered as Reported by: MATT ART on 09/06/13 1032 Hydrocodone Bit/Acetaminophen (Lortab 5 Mg Tablet) 1 Tab Tab, 1 EACH PO Q4H Prescribed by: LUCIA OLIVIER on 04/14/17216 Naproxen (Naproxen) 500 Mg Tablet, 500 MG PO BID Prescribed by: LUCIA OLIVIER on 04/14/17216 Simvastatin (Simvastatin) 20 Mg Tablet, 20 MG PO DAILY, (Reported) Entered as Reported by: BASIM RODRIGUEZ on 06/26/14 1210 Walker (Ultra-Light Rollator) 1 Each Each, EACH , (DME) Prescribed by: LUCIA OLIVIER on 04/14/17217 Past Hsirlqn-Jqvuje-Pewkel Hx Patient Social History Tobacco Use?: No Tobacco type used: Cigarettes Smoking Status: Former Smoker (15 pack years) Use of E-Cig and/or Vaping dev: No Substance use?: No Alcohol Use?: No Pt feels they are or have been: No Immunizations Up To Date Tetanus Booster (TDap): Unknown Seasonal Allergies Seasonal Allergies: No Current Status Advance Directives: Yes Advance Directive Location: copy on file per pt Communicates: Verbally Primary Language: [place] Preferred Spoken Language: [place] Is interpretation needed?: No Past Medical History Surgeries: Orthopedic, Prostatectomy High Cholesterol, Hypertension Prostate Problems Back Injury Prostate Did You Recieve Any Treatments: Yes What Type of Treatment Did You: Surgical Intervention Blood Disorders: No Review of Systems Constitutional: No chills, No diaphoresis EENTM: No hearing loss, No ear pain Respiratory: No cough, No dyspnea on exertion Cardiovascular: No chest pain, No edema Gastrointestinal: No abdominal pain, No constipation, No diarrhea, No nausea, No vomiting Genitourinary: No decreased output, No discharge Musculoskeletal: No back pain, No gout Skin: No change in color, No change in hair/nails Psychiatric/Neurological: Denies Anxiety, Denies Depressed All Other Systems Reviewed Negative Unless Noted: Yes Physical Exam Vital Signs Vital Signs - First Documented 01/05/22 01/05/22 20:17 23:48 Temp 36.6 Pulse 64 Resp 35 B/P (MAP) 236/99 (144) Pulse Ox 98 O2 Delivery Room Air Capillary Refill : Less Than 3 Seconds Height, Weight, BMI Height: 5'8" Weight: 165lbs. oz. 74.980451wn; 25.32 BMI Method:Stated General Appearance: No Apparent Distress, WD/WN HEENT: PERRL/EOMI, Moist Mucous Membranes Neck: Normal Inspection, Supple Respiratory: Chest Non Tender, Lungs Clear, Normal Breath Sounds, No Accessory Muscle Use, No Respiratory Distress Cardiovascular: Regular Rate, Rhythm, No Edema, No Gallop, No Murmur Gastrointestinal: No Pulsatile Mass, Non Tender, Soft Back: Normal Inspection, No CVA Tenderness Extremity: Normal Inspection, No Calf Tenderness, No Pedal Edema Neurologic/Psychiatric: Alert, Oriented x3 Skin: Normal Color, Warm/Dry Lymphatic: No Adenopathy Assessment/Plan Assessment and Plan 1. Hypertensive Urgency -BP currently 169/81 on hydralazine prn and 5mg PO Norvasc -Cardiology has added 50 mg PO Toprol XL and 81mg PO ASA 2. NSTEMI -elevated troponins of 0.731 indicating type II NSTEMI d/t HTN -Cardiology has been consulted >ECHO ordered for today per cardiology >cardiac cath with possible PCI today 3. Chronic HTN -on 40mg Lisinopril at home, followed [place] [facility] [place] 4. HLD -Simvastatin at home, followed by [facility] in [place] 5. H/o Prostate Cancer -prostectomy in 2015 6. H/o Urinary Incontinence -surgical device implanted (pt called a UAS) in 2018 which resolved issue 7. Emphysema 8. H/o Gallstones 9. H/o Tobaccoism -15 pack yr, quit >10yrs ago Plan: Cardiology has been consulted. Pt will have a cardiac cath with possible PCI today and ECHO, per cardiology note started on 5mg Norvasc PO Continue to monitor BP Admission Diagnosis Hypertensive Urgency Admission Status: Inpatient Order (span 2 midnights) Reason for Inpatient Admission: Hypertensive urgency GOMEZKATE MONIQUEDe MUNIZ 01/07/22 0526: History of Present Illness History of Present Illness Reason for visit/HPI CC: HTN urgency HPI: This is a 76yoWM clinic patient of [place] who presented with HTN urgency and placed on a Cardene drip. Elevated troponin prompted Cardiology consultation. Allergies and Home Medications Allergies Coded Allergies: No Known Drug Allergies (Unverified , 09/06/13) Patient Home Medication List Cyclobenzaprine HCl (Cyclobenzaprine HCl) 10 Mg Tablet, 10 MG PO Q8H Prescribed by: LUCIA OLIVIER on 04/14/17 0217 Doxazosin Mesylate (Doxazosin Mesylate) 4 Mg Tablet, 4 MG PO, (Reported) Entered as Reported by: MATT ART on 09/06/13 1032 Hydrocodone Bit/Acetaminophen (Lortab 5 Mg Tablet) 1 Tab Tab, 1 EACH PO Q4H Prescribed by: LUCIA OLIVIER on 04/14/17216 Naproxen (Naproxen) 500 Mg Tablet, 500 MG PO BID Prescribed by: LUCIA OLIVIER on 04/14/17216 Simvastatin (Simvastatin) 20 Mg Tablet, 20 MG PO DAILY, (Reported) Entered as Reported by: BASIM RODRIGUEZ on 06/26/14 1210 Walker (Ultra-Light Rollator) 1 Each Each, EACH [facility], (DME) Prescribed by: LUCIA OLIVIER on 04/14/17217 Past Yqmppsj-Kvebjg-Jdlkpg Hx Patient Social History Marrital Status: single Employed/Student: retired Smoking Status: Former Smoker (15 pack years) Past Medical History High Cholesterol, Hypertension Review of Systems Constitutional: see HPI Cardiovascular: chest pain Physical Exam General Appearance: No Apparent Distress, WD/WN, Chronically ill Eyes: Bilateral Eye Normal Inspection, Bilateral Eye PERRL, Bilateral Eye EOMI HEENT: PERRL/EOMI, Normal ENT Inspection, Pharynx Normal Neck: Full Range of Motion, Normal Inspection, Non Tender, Supple, Carotid Bruit Respiratory: Chest Non Tender, Lungs Clear, Normal Breath Sounds, No Accessory Muscle Use, No Respiratory Distress Cardiovascular: Regular Rate, Rhythm, No Edema, No Gallop, No JVD, No Murmur, Normal Peripheral Pulses Gastrointestinal: Normal Bowel Sounds, No Organomegaly, No Pulsatile Mass, Non Tender, Soft Back: Normal Inspection, No CVA Tenderness, No Vertebral Tenderness Extremity: Normal Capillary Refill, Normal Inspection, Normal Range of Motion, Non Tender, No Calf Tenderness, No Pedal Edema Neurologic/Psychiatric: Alert, Oriented x3, No Motor/Sensory Deficits, Normal Mood/Affect Skin: Normal Color, Warm/Dry Lymphatic: No Adenopathy Assessment/Plan Assessment and Plan Cardiology Stephanie campbell Supervisory-Addendum Brief Verification & Attestation Participated in pt care: history, MDM, physical Personally performed: exam, history, MDM, supervision of care Care discussed with: Medical Student Procedures: n/a Results interpretation: Verified all documentation Verification and Attestation of Medical Student E/M Service A medical student performed and documented this service in my presence. I re viewed and verified all information documented by the medical student and made modifications to such information, when appropriate. I personally performed the physical exam and medical decision making. Gaby Gomez, Jan 07, 2022,05:24 SHAAN KARIMI Jan 06, 2022 11:16 GABY GOMEZ DO Jan 07, 2022 05:26
[2022-01-06] MEDS ORDERED: LIDOCAINE 1% INJ 30 ML (XYLOCAINE) VIAL ONE (11:50)
[2022-01-06] MEDS ORDERED: HEParin (CATH LAB) 2,000 ML IV ONE (11:50)
[2022-01-06] MEDS ORDERED: PROMETHAZINE INJ 25 MG/ML (PHENERGAN) AMP IM PRN (12:00)
[2022-01-06] MEDS ORDERED: NS IV 1000 ML 1,000 ML ONE (13:28)
[2022-01-06] MEDS ORDERED: fentaNYL INJ 100 MCG/2 ML AMP ONE (13:28)
[2022-01-06] MEDS ORDERED: MIDAZOLAM 5 MG/5 ML (VERSED) VIAL ONE (13:28)
[2022-01-06] MEDS ORDERED: NS IV 1000 ML 1,000 ML IV SCH (14:30)
[2022-01-06] MEDS ORDERED: diphenhydrAMINE 50 MG/ML INJ (BENADRYL) ONE (14:42)
--- NOTE | 2022-01-06 15:18 | Consultation-Cardiology ---
HPI-Cardiology Cardiology Consultation: Date of Consultation 01/06/22 Time Seen by a Provider: 11:30 Date of Admission Attending Physician Bing,Local Physician Admitting Physician Admitting Physician: Gaby Orr DO Attending Physician: Gaby Orr DO Consulting Physician RIC MANNING MD, MA, FACP, FACC, [facility], CCDS Physician requesting consult: Dr Orr HPI: Chief Complaint: Reason for Card consult Mr. Ruff is a 76 yr old male who has been admitted to ICU 3 from the ED with c/o chest pressure, SOB and uncontrolled HTN. He reports he has chronic HTN. He reports his Lisinopril dose was just increased recently to 40mg daily. He states he took his BP on Wednesday morning and noted it to be 140's systolic. He reports he was getting laundry out of the washing machine on Wednesday night when he had a sudden onset of dizziness. He reports he developed chest tightness and SOB. He reports he had numbness in his left hand. He reports he checked his BP and noted it to be greater than 200 systolic. He called his daughter to take him to the ED. He reports the chest pressure and SOB persisted. He reports it did not change with movement. He states once in the ED he received Morphine IV, which did relive his chest pain. He is currently pain free. He reports n/v this morning. He is reporting some mild SOB at this time. Review of Systems-Cardiology Review of Systems Constitutional: No chills, No fever, No malaise Eyes: No vision change Ears/Nose/Throat: No epistaxis, No recent hearing loss Respiratory: As described under HPI Cardiovascular: As described under HPI Gastrointestinal: As described under HPI Genitourinary: No dysuria, No hematuria Skin: No rash on exposed areas, No ulcerations on exposed areas Psychiatric/Neurological: anxiety; No depression, No seizure, No focal weakness, No syncope Hematologic: No bleeding abnormalities All Other Systems Reviewed Negative Unless Noted: Yes CFD-Lxqdiq-Zxcemj Hx Patient Social History Smoking Status: Former Smoker (15 pack years) Former smoker/When Quit: Jun 26, 1981 2nd Hand Smoke Exposure: No Have you traveled recently?: No Alcohol Use?: No Pt feels they are or have been: No Tobacco type used: Cigarettes Past Medical History PMH As described under Assessment. Family Medical History Family Medical History: He reports his mother passed from an [place] at age 67yrs. He reports a sister who has had a stroke. Allergies and Home Medications Allergies Coded Allergies: No Known Drug Allergies (Unverified , 09/06/13) Patient Home Medication List Home Medication List Reviewed: Yes Cyclobenzaprine HCl (Cyclobenzaprine HCl) 10 Mg Tablet, 10 MG PO Q8H Prescribed by: LUCIA OLIVIER on 04/14/17216 Doxazosin Mesylate (Doxazosin Mesylate) 4 Mg Tablet, 4 MG PO, (Reported) Entered as Reported by: MATT ART on 09/06/13 1032 Hydrocodone Bit/Acetaminophen (Lortab 5 Mg Tablet) 1 Tab Tab, 1 EACH PO Q4H Prescribed by: LUCAI OLIVIER on 04/14/17216 Naproxen (Naproxen) 500 Mg Tablet, 500 MG PO BID Prescribed by: LUCIA OLIVIER on 04/14/17216 Simvastatin (Simvastatin) 20 Mg Tablet, 20 MG PO DAILY, (Reported) Entered as Reported by: BASIM RODRIGUEZ on 06/26/14 1210 Walker (Ultra-Light Rollator) 1 Each Each, EACH [facility], (DME) Prescribed by: LUCIA OLIVIER on 04/14/17217 Physical Exam-Cardiology Physical Exam Vital Signs/I&O 01/06/22 01/06/22 01/06/22 01/06/22 03:57 04:00 04:00 05:00 Temp 37.0 Pulse 78 129 B/P (MAP) 174/85 (114) 189/88 (121) Pulse Ox 97 98 97 O2 Delivery Room Air Room Air Room Air 01/06/22 01/06/22 01/06/22 01/06/22 06:00 07:00 07:21 07:59 Temp 36.8 Pulse 63 60 66 B/P (MAP) 145/74 (97) 169/81 (110) Pulse Ox 98 O2 Delivery Room Air Room Air 01/06/22 01/06/22 01/06/22 01/06/22 08:00 08:00 09:00 10:00 Pulse 67 67 74 B/P (MAP) 165/77 (106) 167/82 (110) 178/81 (113) Pulse Ox 98 97 99 98 O2 Delivery Room Air Room Air Room Air Room Air 01/06/22 01/06/22 01/06/22 11:51 12:00 12:19 Temp 36.6 Pulse 82 Pulse Ox 98 O2 Delivery Room Air 01/06/22 00:00 Intake Total 1000 ml Balance 1000 ml Capillary Refill : Less Than 3 Seconds Constitutional: AAO x 3, well-developed, well-nourished HEENT: hearing is well preserved; No oral hygience is good (poor dention with m issing teeth) Neck: No carotid bruit; carotid pulses are 2 + bilaterally Respiratory: No accessory muscle use, No respiratory distress; chest expansion is symmetric, chest is bilaterally symmetric, lungs clear to auscultation Cardiovascular: regular rate-rhythm; No JVD; S1 and S2, systolic murmur (2/6 MSM) Gastrointestinal: No tender; soft, round, audible bowel sounds Extremities: no lower extremity edema bilateral Neurologic/Psychiatric: grossly intact (moves all extremities) Skin: No rash on exposed areas, No ulcerations on exposed areas Data Review Labs Laboratory Tests 01/05/22 20:20: White Blood Count 7.1, Red Blood Count 4.81, Hemoglobin 14.2, Hematocrit 44, Mean Corpuscular Volume 92, Mean Corpuscular Hemoglobin 30, Mean Corpuscular Hemoglobin Concent 32, Red Cell Distribution Width 12.4, Platelet Count 220, Mean Platelet Volume 10.5, Immature Granulocyte % (Auto) 0, Neutrophils (%) (Auto) 56, Lymphocytes (%) (Auto) 33, Monocytes (%) (Auto) 9, Eosinophils (%) (Auto) 2, Basophils (%) (Auto) 0, Neutrophils # (Auto) 4.0, Lymphocytes # (Auto) 2.3, Monocytes # (Auto) 0.6, Eosinophils # (Auto) 0.2, Basophils # (Auto) 0.0, Immature Granulocyte # (Auto) 0.0, Prothrombin Time 12.3, INR Comment 0.9, Activated Partial Thromboplast Time 33, D-Dimer 0.83H, Sodium Level 144, Potassium Level 4.1, Chloride Level 108H, Carbon Dioxide Level 25, Anion Gap 11, Blood Urea Nitrogen 20H, Creatinine 1.22, Estimat Glomerular Filtration Rate 61, BUN/Creatinine Ratio 16, Glucose Level 80, Calcium Level 9.2, Corrected Calcium 9.1, Magnesium Level 1.9, Total Bilirubin 0.6, Aspartate Amino Transf (AST/SGOT) 18, Alanine Aminotransferase (ALT/SGPT) 16, Alkaline Phosphatase 88, Total Creatine Kinase 88, Creatine Kinase MB 2.0, Myoglobin 51.7, Troponin I < 0.028, B-Type Natriuretic Peptide 50.5, Total Protein 7.6, Albumin 4.1, TSH [place] Testing 4.18 01/05/22 20:30: Influenza Type A (RT-PCR) Not Detected, Influenza Type B (RT-PCR) Not Detected, SARS-CoV-2 RNA (RT-PCR) Not Detected 01/06/22 04:06: White Blood Count 10.0, Red Blood Count 4.73, Hemoglobin 14.2, Hematocrit 43, Mean Corpuscular Volume 91, Mean Corpuscular Hemoglobin 30, Mean Corpuscular Hemoglobin Concent 33, Red Cell Distribution Width 12.5, Platelet Count 207, Mean Platelet Volume 11.0, Immature Granulocyte % (Auto) 0, Neutrophils (%) (Auto) 80H, Lymphocytes (%) (Auto) 13, Monocytes (%) (Auto) 6, Eosinophils (%) (Auto) 1, Basophils (%) (Auto) 0, Neutrophils # (Auto) 8.0H, Lymphocytes # (Auto) 1.3, Monocytes # (Auto) 0.6, Eosinophils # (Auto) 0.1, Basophils # (Auto) 0.0, Immature Granulocyte # (Auto) 0.0, Sodium Level 142, Potassium Level 3.7, Chloride Level 110H, Carbon Dioxide Level 19L, Anion Gap 13, Blood Urea Nitrogen 15, Creatinine 0.95, Estimat Glomerular Filtration Rate 83, BUN/Creatinine Ratio 16, Glucose Level 131H, Calcium Level 9.1, Corrected Calcium 9.3, Magnesium Level 1.8, Total Bilirubin 0.6, Aspartate Amino Transf (AST/SGOT) 17, Alanine Aminotransferase (ALT/SGPT) 16, Alkaline Phosphatase 102, Troponin I 0.731*H, T otal Protein 7.0, Albumin 3.8, Phosphorus Level 1.7L A/P-Cardiology Assessment/Admission Diagnosis Mildly elevated troponin, likely due to uncontrolled hypertension at the time of presentation - no evidence of ac [place] - card cath on 01/06/22: no significant CAD, LVEDP 10 mmHg, LVEF 60% Uncontrolled HTN - echo on 01/06/22: The cavity size is normal. There is mild concentric hypertrophy. Systolic function is normal. The estimated ejection fraction is 60- 65%. There were no regional wall motion abnormalities identified. Doppler parameters are consistent with abnormal left ventricular relaxation (grade 1 diastolic dysfunction). Aortic valve: Thickening, consistent with sclerosis. HLD - [facility]in [facility] H/O gallstones per pt report H/O tobaccoism - quit greater than 10 yrs ago Emphysema H/O prostate cancer - h/o prostatectomy in 2016 Family h/o CAD - mother passed from [place] age 67 yrs Discussion and Recomendations Risk factor mod reviewed Adjust meds as needed for hypertension Continue statin for hyperlipidemia Discussed his CV issues and his cardiac w/u with him in detail Monitor lab closely Further recs will be based on his hospital course We would like to thank medical services for this consult RIC MANNING MD FACP FAC CCDS Jan 06, 2022 15:18
[2022-01-06] MEDS ORDERED: meTOprolol SUCCINATE 100 MG (TOPROL XL) TAB PO NR (15:30)
[2022-01-06] MEDS ORDERED: PATIENT MAY USE OWN MEDS, ALL PO SCH (15:30)
[2022-01-06] MEDS: CYCLOBENZAPRINE 10 MG (FLEXERIL) TAB PO PRN ×2 (15:38→15:42)
[2022-01-06] MEDS: NS IV 1000 ML 1,000 ML IV SCH (15:51)
[2022-01-07] MEDS: NS IV 1000 ML 1,000 ML IV SCH ×2 (03:39→04:08)
[2022-01-07 04:36] LABS: BASOPHILS % (AUTO) 0 % (0-10); EOSINOPHILS % (AUTO) 0 % (0-10); HEMATOCRIT 41 % (40-54); HEMOGLOBIN 13.1 g/dL (13.3-17.7); LYMPHOCYTES # (AUTO) 1.5 10^3/uL (1.0-4.0); LYMPHOCYTES % (AUTO) 16 % (12-44); MEAN CORPUSCULAR HEMOGLOBIN 30 pg (25-34); MEAN CORPUSCULAR HGB CONC 32 g/dL (32-36); MEAN CORPUSCULAR VOLUME 93 fL (80-99); MEAN PLATELET VOLUME 11.3 fL (9.0-12.2); MONOCYTES % (AUTO) 11 % (0-12); NEUTROPHILS # (AUTO) 6.8 10^3/uL (1.8-7.8); NEUTROPHILS % (AUTO) 73 % (42-75); PLATELET COUNT 204 10^3/uL (130-400); WHITE BLOOD COUNT 9.4 10^3/uL (4.3-11.0)
[2022-01-07] MEDS: CATHETER FLUSH 10 ML SYR IVP SCH (04:50)
[2022-01-07] MEDS: MAGNESIUM 1 GM/100 ML IVPB 100 ML IV SCH (04:51)
[2022-01-07] MEDS: niCARdipine IV (Pyxis drip kit 50 MG in NS (IVPB) 230 ML IV SCH (04:51)
[2022-01-07] MEDS: POTASSIUM CL 10MEQ/50ML IVPB 50 ML IV SCH (04:51)
[2022-01-07] MEDS: KCL 20 MEQ TAB (K-DUR) PO SCH (04:52)
[2022-01-07 05:08] LABS: ALBUMIN 3.4 GM/DL (3.2-4.5); BILIRUBIN,TOTAL 0.6 MG/DL (0.1-1.0); CREATININE SERUM 1.12 MG/DL (0.60-1.30); MAGNESIUM 1.9 MG/DL (1.6-2.4); PHOSPHORUS 2.9 MG/DL (2.3-4.7); POTASSIUM 3.8 MMOL/L (3.6-5.0); TOTAL PROTEIN 6.3 GM/DL (6.4-8.2)
[2022-01-07] MEDS: lisINopril 20 MG (PRINIVIL) TABLET PO SCH (08:24)
[2022-01-07] MEDS: FAMOTIDINE 20 MG (PEPCID) TABLET PO SCH (08:24)
[2022-01-07] MEDS ORDERED: amLODIPine 5 MG (NORVASC) TAB PO SCH (09:00)
[2022-01-07] MEDS ORDERED: meTOproloL SUCCINATE 50 MG (TOPROL XL) TAB PO SCH (09:00)
[2022-01-07] MEDS ORDERED: ASPIRIN 81 MG CHEW (CHILDREN'S ASA) PO SCH (09:00)
[2022-01-07] MEDS ORDERED: meTOprolol SUCCINATE 100 MG (TOPROL XL) TAB PO SCH (09:00)
--- NOTE | 2022-01-07 09:01 | Progress Note - Cardiology ---
Cardiology SOAP Progress Note Subjective: Sitting up in bed States he feels good Wants to go home No c/o CP, SOB, palpitations, syncope or near syncope Objective: I&O/Vital Signs 01/06/22 01/07/22 01/07/22 01/07/22 23:59 00:00 01:00 01:00 Pulse 50 51 46 B/P (MAP) 103/57 (78) 101/53 (83) Pulse Ox 98 93 95 O2 Delivery Room Air Room Air Room Air 01/07/22 01/07/22 01/07/22 01/07/22 02:00 03:00 04:00 04:00 Temp 37.0 Pulse 51 52 B/P (MAP) 139/81 (104) 122/70 (88) Pulse Ox 95 96 98 O2 Delivery Room Air Room Air Room Air 01/07/22 01/07/22 01/07/22 01/07/22 04:03 05:00 06:00 07:00 Pulse 49 44 44 57 B/P (MAP) 100/45 (70) 110/65 (89) 98/48 (65) 103/73 (83) Pulse Ox 93 93 95 95 O2 Delivery Room Air Room Air Room Air Room Air 01/07/22 01/07/22 01/07/22 01/07/22 07:07 08:00 08:00 09:00 Pulse 50 62 59 B/P (MAP) 138/80 (99) 146/76 (99) Pulse Ox 98 94 96 O2 Delivery Room Air Room Air Room Air 01/07/22 01/07/22 10:00 11:00 Pulse 53 51 B/P (MAP) 105/69 (81) 108/76 (87) Pulse Ox 96 95 O2 Delivery Room Air Room Air 01/07/22 00:00 Intake Total 200 ml Output Total 900 ml Balance -700 ml Weight (Pounds): 165 Weight (Calculated Kilograms): 74.957414 Side: right Groin site without hematoma: Yes Condition: DP/PT pulses palpable, extremity w/d/p Bruising: mild bruising Constitutional: AAO x 3, well-developed, well-nourished Respiratory: No accessory muscle use, No respiratory distress; chest expansion is symmetric, chest is bilaterally symmetric, lungs clear to auscultation Cardiovascular: regular rate-rhythm; No JVD; S1 and S2, systolic murmur (2/6 MSM) Gastrointestional: No tender; soft, round, audible bowel sounds Extremities: no lower extremity edema bilateral Neurologic/Psychiatric: grossly intact (moves all extremities) Skin: No rash on exposed areas, No ulcerations on exposed areas Results/Procedures: Labs Laboratory Tests 01/07/22 04:15: White Blood Count 9.4, Red Blood Count 4.38, Hemoglobin 13.1L, Hematocrit 41, Mean Corpuscular Volume 93, Mean Corpuscular Hemoglobin 30, Mean Corpuscular Hemoglobin Concent 32, Red Cell Distribution Width 12.9, Platelet Count 204, Mean Platelet Volume 11.3, Immature Granulocyte % (Auto) 0, Neutrophils (%) (Auto) 73, Lymphocytes (%) (Auto) 16, Monocytes (%) (Auto) 11, Eosinophils (%) (Auto) 0, Basophils (%) (Auto) 0, Neutrophils # (Auto) 6.8, Lymphocytes # (Auto) 1.5, Monocytes # (Auto) 1.0, Eosinophils # (Auto) 0.0, Basophils # (Auto) 0.0, Immature Granulocyte # (Auto) 0.0, Sodium Level 144, Potassium Level 3.8, Chloride Level 111H, Carbon Dioxide Level 23, Anion Gap 10, Blood Urea Nitrogen 18, Creatinine 1.12, Estimat Glomerular Filtration Rate 68, BUN/Creatinine Ratio 16, Glucose Level 91, Calcium Level 9.0, Corrected Calcium 9.5, Phosphorus Level 2.9, Magnesium Level 1.9, Total Bilirubin 0.6, Aspartate Amino Transf (AST/SGOT) 16, Alanine Aminotransferase (ALT/SGPT) 12, Alkaline Phosphatase 86, Total Protein 6.3L, Albumin 3.4 Microbiology 01/05/22 MRSA Screen - Final, Complete MRSA not isolated A/P: Assessment: Mildly elevated troponin, likely due to uncontrolled hypertension at the time of presentation - no evidence of ac [place] - card cath on 01/06/22: no significant CAD, LVEDP 10 mmHg, LVEF 60% Uncontrolled HTN - echo on 01/06/22: The cavity size is normal. There is mild concentric hypertrophy. Systolic function is normal. The estimated ejection fraction is 60- 65%. There were no regional wall motion abnormalities identified. Doppler parameters are consistent with abnormal left ventricular relaxation (grade 1 diastolic dysfunction). Aortic valve: Thickening, consistent with sclerosis. - BP improved HLD - statin tx - [facility] H/O gallstones per pt report H/O tobaccoism - quit greater than 10 yrs ago Emphysema H/O prostate cancer - h/o prostatectomy in 2016 Family h/o CAD - mother passed from [facility] age 67 yrs Plan: Risk factor mod reviewed Continue current anti-hypertensive regimen Continue statin for hyperlipidemia Ok to discharge home today from cardiac stand point Advise out pt f/u BEBO JEFFREY Jan 07, 2022 09:00
[2022-01-07] MEDS ORDERED: MTP100TCR PO (09:04)
[2022-01-07] MEDS ORDERED: LISI20TA26 PO (09:04)
[2022-01-07] MEDS ORDERED: AMLO10TA4 PO (09:04)
[2022-01-07] MEDS ORDERED: ETOD500T3 PO (11:01)
[2022-01-07] MEDS ORDERED: GABA300C PO (11:01)
[2022-01-07] MEDS ORDERED: SIMV80TA21 PO (11:01)
--- NOTE | 2022-01-07 11:30 | Progress Note ---
SHIRLEY VERA 01/07/22 1130: Subjective Date Seen by a Provider: Jan 07, 2022 Time Seen by a Provider: 08:40 Subjective/Events-last exam Pt doing very well this morning, eating breakfast. He was initially hypotensive this morning, however this has improved to 138/80. He denies fever, chills, N/V/ D, or cough. Reports chronic left sciatic pain radiating down his L leg, which he states is managed appropriately at the [facility]. He is continent of urine and stool. States he feels good and is ready to go home. Hospital Course: Mr. Gomez Ruff, 70 YO M, with a hx of HTN, HLD, and emphysema was admitted to the ICU on 01/05/22 for hypertensive urgency. He presented to the ED earlier that day c/o chest tightness and dizziness, reporting similar episode few years ago due to HTN. In ED he was found to have BP of 236/99, elevated D-dimer, EKG evidence of bradycardia, negative CXR, and CTA head/neck that indicated volume loss from chronic microvascular ischemia but otherwise no acute intracranial abnormalities were noted. He was given 10mg Hydralazine x2 in the ED which did initially lower his BP but exhibited rebound to the 220-240s systolic prompting ICU admission, on cardene drip. Cardiology consulted, recommended to halt cardene drip and make hydralazine PRN, as his BP decreased to 160-190s in ICU. He experienced nausea, vomiting, VALDERRAMA localized to the sinuses, burning abd pain, and continued chest tightness, which all resolved following administration of IV morphine. Yesterday he had an elevated troponin of 0.731 suggestive of a type II NSTEMI, with subsequent catheterization indicating no significant CAD, no acute CT, and LVEF of 60%. He also had an echocardiogram yesterday indicating some mild concentric hypertrophy with normal systolic function. Today he is feeling great with no symptoms and ready for dismissal. He will follow up with cardiology as an outpatient. Pt is agreeable with plan and stable for d/c. Review of Systems General: No Chills, No Night Sweats, No Fatigue HEENT: No Head Aches, No Visual Changes Pulmonary: No Dyspnea, No Cough Cardiovascular: No: Chest Pain, Palpitations, Orthopnea, Edema Gastrointestinal: No: Nausea, Vomiting, Diarrhea Genitourinary: No Dysuria, No Frequency Musculoskeletal: leg pain (chronic left leg pain due to sciatica ); No: neck pain, arm pain Neurological: No: Weakness, Numbness, Change in speech, Confusion Objective Exam Last Set of Vital Signs Vital Signs Date Time Temp Pulse Resp B/P (MAP) Pulse Ox O2 Delivery O2 Flow Rate FiO2 01/07/22 11:00 51 108/76 (87) 95 Room Air 01/07/22 04:00 37.0 01/05/22 23:48 16 Capillary Refill : Less Than 3 Seconds I&O Intake and Output 01/07/22 00:00 Intake Total 775 ml Output Total 1650 ml Balance -875 ml Intake Oral 775 ml Output Urine Total 1650 ml # Voids 5 Daily Weight Change No General: Alert, Oriented X3, Cooperative, No Acute Distress HEENT: Atraumatic, PERRLA, EOMI Neck: Supple, No JVD, No Thyromegaly Lungs: Clear to Auscultation Heart: Regular Rate, Normal S1, Normal S2 Abdomen: Normal Bowel Sounds, Soft, No Tenderness Extremities: No Cyanosis, No Edema, Normal Pulses Skin: No Rashes, No Significant Lesion Neuro: Normal Speech, Sensation Intact Psych/Mental Status: Mental Status NL, Mood NL Results Lab Laboratory Tests 01/07/22 04:15: White Blood Count 9.4, Red Blood Count 4.38, Hemoglobin 13.1L, Hematocrit 41, Mean Corpuscular Volume 93, Mean Corpuscular Hemoglobin 30, Mean Corpuscular Hemoglobin Concent 32, Red Cell Distribution Width 12.9, Platelet Count 204, Mean Platelet Volume 11.3, Immature Granulocyte % (Auto) 0, Neutrophils (%) (Auto) 73, Lymphocytes (%) (Auto) 16, Monocytes (%) (Auto) 11, Eosinophils (%) (Auto) 0, Basophils (%) (Auto) 0, Neutrophils # (Auto) 6.8, Lymphocytes # (Auto) 1.5, Monocytes # (Auto) 1.0, Eosinophils # (Auto) 0.0, Basophils # (Auto) 0.0, Immature Granulocyte # (Auto) 0.0, Sodium Level 144, Potassium Level 3.8, Chloride Level 111H, Carbon Dioxide Level 23, Anion Gap 10, Blood Urea Nitrogen 18, Creatinine 1.12, Estimat Glomerular Filtration Rate 68, BUN/Creatinine Ratio 16, Glucose Level 91, Calcium Level 9.0, Corrected Calcium 9.5, Phosphorus Level 2.9, Magnesium Level 1.9, Total Bilirubin 0.6, Aspartate Amino Transf (AST/SGOT) 16, Alanine Aminotransferase (ALT/SGPT) 12, Alkaline Phosphatase 86, Total Protein 6.3L, Albumin 3.4 Microbiology 01/05/22 MRSA Screen - Final, Complete MRSA not isolated Assessment/Plan Assessment/Plan Assess & Plan/Chief Complaint 1. Hypertensive Urgency -BP currently 108/76 on lisinopril (40 mg PO daily) -Cardiology has added 100 mg PO Toprol XL, 81mg PO ASA , and 10 mg Amlodipine 2. NSTEMI -elevated troponins of 0.731 indicating type II NSTEMI d/t HTN -Cardiology has been consulted >ECHO 01/06: The cavity size is normal. There is mild concentric hypertrophy. Systolic function is normal. The estimated ejection fraction is 60- 65%. There were no regional wall motion abnormalities identified. Doppler parameters are consistent with abnormal left ventricular relaxation (grade 1 diastolic dysfunction). Aortic valve: Thickening, consistent with sclerosis. >Cardiac cath 01/06: no acute CT. No significant CAD, LVEDP 10 mmHg, LVEF 60% 3. Chronic HTN -on 40mg Lisinopril at home, [facility] [place] 4. HLD -Simvastatin at home, followed by [facility] [place] 5. H/o Prostate Cancer -prostectomy in 2016 6. H/o Urinary Incontinence -surgical device implanted (pt called a UAS) in 2018 which resolved issue 7. Emphysema 8. H/o Gallstones 9. H/o Tobaccoism -15 pack yr, quit >10yrs ago Plan: Cardiology performed cadriac cath and echo yesterday. No intervention required. Continue current anti-hypertensive regimen Continue statin for hyperlipidemia F/u with cardiology as an outpatient He is stable for d/c home. F/u with [facility] GABY GOMEZ DO 01/07/222036: Supervisory-Addendum Brief Verification & Attestation Participated in pt care: history, MDM, physical Personally performed: exam, history, MDM, supervision of care Care discussed with: Medical Student Procedures: n/a Results interpretation: Verified all documentation Verification and Attestation of Medical Student E/M Service A medical student performed and documented this service in my presence. I reviewed and verified all information documented by the medical student and made modifications to such information, when appropriate. I personally performed the physical exam and medical decision making. Gaby Gomez, Jan 07, 2022,20:37 SHIRLEY VERA Jan 07, 2022 11:30 GABY GOMEZ DO Jan 07, 2022 20:37
--- NOTE | 2022-01-07 11:47 | Progress Note - Cardiology ---
Cardiology SOAP Progress Note Subjective: No cp or palp or syncope or shortness of breath No n/v/d No swelling No focal weakness No groin or leg discomfort Objective: I&O/Vital Signs 01/06/22 01/07/22 01/07/22 01/07/22 23:59 00:00 01:00 01:00 Pulse 50 51 46 B/P (MAP) 103/57 (78) 101/53 (83) Pulse Ox 98 93 95 O2 Delivery Room Air Room Air Room Air 01/07/22 01/07/22 01/07/22 01/07/22 02:00 03:00 04:00 04:00 Temp 37.0 Pulse 51 52 B/P (MAP) 139/81 (104) 122/70 (88) Pulse Ox 95 96 98 O2 Delivery Room Air Room Air Room Air 01/07/22 01/07/22 01/07/22 01/07/22 04:03 05:00 06:00 07:00 Pulse 49 44 44 57 B/P (MAP) 100/45 (70) 110/65 (89) 98/48 (65) 103/73 (83) Pulse Ox 93 93 95 95 O2 Delivery Room Air Room Air Room Air Room Air 01/07/22 01/07/22 01/07/22 01/07/22 07:07 08:00 08:00 09:00 Pulse 50 62 59 B/P (MAP) 138/80 (99) 146/76 (99) Pulse Ox 98 94 96 O2 Delivery Room Air Room Air Room Air 01/07/22 01/07/22 10:00 11:00 Pulse 53 51 B/P (MAP) 105/69 (81) 108/76 (87) Pulse Ox 96 95 O2 Delivery Room Air Room Air 01/07/22 00:00 Intake Total 200 ml Output Total 900 ml Balance -700 ml Weight (Pounds): 165 Weight (Calculated Kilograms): 74.759632 Side: right Groin site without hematoma: Yes Condition: DP/PT pulses palpable, extremity w/d/p Bruising: mild bruising Constitutional: AAO x 3, well-developed, well-nourished Respiratory: No accessory muscle use, No respiratory distress; chest expansion is symmetric, chest is bilaterally symmetric, lungs clear to auscultation Cardiovascular: regular rate-rhythm; No JVD; S1 and S2, systolic murmur (2/6 MSM) Gastrointestional: No tender; soft, round, audible bowel sounds Extremities: no lower extremity edema bilateral Neurologic/Psychiatric: grossly intact (moves all extremities) Skin: No rash on exposed areas, No ulcerations on exposed areas Results/Procedures: Labs Laboratory Tests 01/07/22 04:15: White Blood Count 9.4, Red Blood Count 4.38, Hemoglobin 13.1L, Hematocrit 41, Mean Corpuscular Volume 93, Mean Corpuscular Hemoglobin 30, Mean Corpuscular Hemoglobin Concent 32, Red Cell Distribution Width 12.9, Platelet Count 204, Mean Platelet Volume 11.3, Immature Granulocyte % (Auto) 0, Neutrophils (%) (Auto) 73, Lymphocytes (%) (Auto) 16, Monocytes (%) (Auto) 11, Eosinophils (%) (Auto) 0, Basophils (%) (Auto) 0, Neutrophils # (Auto) 6.8, Lymphocytes # (Auto) 1.5, Monocytes # (Auto) 1.0, Eosinophils # (Auto) 0.0, Basophils # (Auto) 0.0, Immature Granulocyte # (Auto) 0.0, Sodium Level 144, Potassium Level 3.8, Chloride Level 111H, Carbon Dioxide Level 23, Anion Gap 10, Blood Urea Nitrogen 18, Creatinine 1.12, Estimat Glomerular Filtration Rate 68, BUN/Creatinine Ratio 16, Glucose Level 91, Calcium Level 9.0, Corrected Calcium 9.5, Phosphorus Level 2.9, Magnesium Level 1.9, Total Bilirubin 0.6, Aspartate Amino Transf (AST/SGOT) 16, Alanine Aminotransferase (ALT/SGPT) 12, Alkaline Phosphatase 86, Total Protein 6.3L, Albumin 3.4 Microbiology 01/05/22 MRSA Screen - Final, Complete MRSA not isolated Laboratory Tests 01/05/22 20:20 01/06/22 04:06 01/07/22 04:15 A/P: Assessment: Mildly elevated troponin, likely due to uncontrolled hypertension at the time of presentation - no evidence of ac [place] - card cath on 01/06/22: no significant CAD, LVEDP 10 mmHg, LVEF 60% Uncontrolled HTN - echo on 01/06/22: The cavity size is normal. There is mild concentric hypertrophy. Systolic function is normal. The estimated ejection fraction is 60- 65%. There were no regional wall motion abnormalities identified. Doppler parameters are consistent with abnormal left ventricular relaxation (grade 1 diastolic dysfunction). Aortic valve: Thickening, consistent with sclerosis. - BP improved HLD - [facility]in tx [facility] H/O gallstones per pt report H/O tobaccoism - quit greater than 10 yrs ago Emphysema H/O prostate cancer - h/o prostatectomy in 2016 Family h/o CAD - mother passed from [place] age 67 yrs Plan: I reviewed and discussed his CV w/u with him Risk factor mod reviewed Continue current anti-hypertensive regimen Ok to discharge home today from cardiac stand point Advise out pt f/u RIC MANNING MD FACP FAC CCDS Jan 07, 2022 11:47
--- NOTE | 2022-01-07 12:42 | Discharge Summary ---
Diagnosis/Chief Complaint Date of Admission Jan 05, 2022 at 22:50 Date of Discharge Discharge Date: Jan 07, 2022 Discharge Diagnosis 1. Hypertensive Urgency -BP currently 169/81 on hydralazine prn and 5mg PO Norvasc -Cardiology has added 50 mg PO Toprol XL and 81mg PO ASA 2. NSTEMI -elevated troponins of 0.731 indicating type II NSTEMI d/t HTN -Cardiology has been consulted >ECHO ordered for today per cardiology >cardiac cath with possible PCI today 3. Chronic HTN -on 40mg Lisinopril at home, followed by [facility] in [place] 4. HLD -Simvastatin at home, followed by [facility] in [place] 5. H/o Prostate Cancer -prostectomy in 2016 6. H/o Urinary Incontinence -surgical device implanted (pt called a UAS) in 2018 which resolved issue 7. Emphysema 8. H/o Gallstones 9. H/o Tobaccoism -15 pack yr, quit >10yrs ago Plan: Cardiology has been consulted. Pt will have a cardiac cath with possible PCI today and ECHO, per cardiology note started on 5mg Norvasc PO Continue to monitor BP Reason Hospital Visit CC: HTN urgency HPI: This is a 76yoWM clinic patient of [facility] who presented with HTN urgency and placed on a Cardene drip. Elevated troponin prompted Cardiology consultation. Discharge Summary Discharge Physical Examination Allergies: Coded Allergies: No Known Drug Allergies (Unverified , 09/06/13) Vitals & I&Os Vital Signs Date Time Temp Pulse Resp B/P (MAP) Pulse Ox O2 Delivery O2 Flow Rate FiO2 01/07/22 12:29 53 01/07/22 12:00 98 Room Air 01/07/22 12:00 137/86 (103) 01/07/22 04:00 37.0 01/05/22 23:48 16 Hospital Course Was the Problem List Reviewed?: Yes Hospital Course: Mr. Gomez Ruff, 70 YO M, with a hx of HTN, HLD, and emphysema was admitted to the ICU on 01/05/22 for hypertensive urgency. He presented to the ED earlier that day c/o chest tightness and dizziness, reporting similar episode few years ago due to HTN. In ED he was found to have BP of 236/99, elevated D-dimer, EKG evidence of bradycardia, negative CXR, and CTA head/neck that indicated volume loss from chronic microvascular ischemia but otherwise no acute intracranial abnormalities were noted. He was given 10mg Hydralazine x2 in the ED which did initially lower his BP but exhibited rebound to the 220-240s systolic prompting ICU admission, on cardene drip. Cardiology consulted, recommended to halt ca rdene drip and make hydralazine PRN, as his BP decreased to 160-190s in ICU. He experienced nausea, vomiting, VALDERRAMA localized to the sinuses, burning abd pain, and continued chest tightness, which all resolved following administration of IV morphine. Yesterday he had an elevated troponin of 0.731 suggestive of a type II NSTEMI, with subsequent catheterization indicating no significant CAD, no acute FL, and LVEF of 60%. He also had an echocardiogram yesterday indicating some mild concentric hypertrophy with normal systolic function. Today he is feeling great with no symptoms and ready for dismissal. He will follow up with cardiology as an outpatient. Pt is agreeable with plan and stable for d/c. Labs (last 24 hrs) Laboratory Tests 01/05/22 20:20: White Blood Count 7.1, Red Blood Count 4.81, Hemoglobin 14.2, Hematocrit 44, Mean Corpuscular Volume 92, Mean Corpuscular Hemoglobin 30, Mean Corpuscular Hemoglobin Concent 32, Red Cell Distribution Width 12.4, Platelet Count 220, Mean Platelet Volume 10.5, Immature Granulocyte % (Auto) 0, Neutrophils (%) (Auto) 56, Lymphocytes (%) (Auto) 33, Monocytes (%) (Auto) 9, Eosinophils (%) (Auto) 2, Basophils (%) (Auto) 0, Neutrophils # (Auto) 4.0, Lymphocytes # (Auto) 2.3, Monocytes # (Auto) 0.6, Eosinophils # (Auto) 0.2, Basophils # (Auto) 0.0, Immature Granulocyte # (Auto) 0.0, Prothrombin Time 12.3, INR Comment 0.9, Activated Partial Thromboplast Time 33, D-Dimer 0.83H, Sodium Level 144, Potassium Level 4.1, Chloride Level 108H, Carbon Dioxide Level 25, Anion Gap 11, Blood Urea Nitrogen 20H, Creatinine 1.22, Estimat Glomerular Filtration Rate 61, BUN/Creatinine Ratio 16, Glucose Level 80, Calcium Level 9.2, Corrected Calcium 9.1, Magnesium Level 1.9, Total Bilirubin 0.6, Aspartate Amino Transf (AST/SGOT) 18, Alanine Aminotransferase (ALT/SGPT) 16, Alkaline Phosphatase 88, Total Creatine Kinase 88, Creatine Kinase MB 2.0, Myoglobin 51.7, Troponin I < 0.028, B-Type Natriuretic Peptide 50.5, Total Protein 7.6, Albumin 4.1, TSH [place] Testing 4.18 01/05/22 20:30: Influenza Type A (RT-PCR) Not Detected, Influenza Type B (RT-PCR) Not Detected, SARS-CoV-2 RNA (RT-PCR) Not Detected 01/06/22 04:06: White Blood Count 10.0, Red Blood Count 4.73, Hemoglobin 14.2, Hematocrit 43, Mean Corpuscular Volume 91, Mean Corpuscular Hemoglobin 30, Mean Corpuscular Hemoglobin Concent 33, Red Cell Distribution Width 12.5, Platelet Count 207, Mean Platelet Volume 11.0, Immature Granulocyte % (Auto) 0, Neutrophils (%) (Auto) 80H, Lymphocytes (%) (Auto) 13, Monocytes (%) (Auto) 6, Eosinophils (%) (Auto) 1, Basophils (%) (Auto) 0, Neutrophils # (Auto) 8.0H, Lymphocytes # (Auto) 1.3, Monocytes # (Auto) 0.6, Eosinophils # (Auto) 0.1, Basophils # (Auto) 0.0, Immature Granulocyte # (Auto) 0.0, Sodium Level 142, Potassium Level 3.7, Chloride Level 110H, Carbon Dioxide Level 19L, Anion Gap 13, Blood Urea Nitrogen 15, Creatinine 0.95, Estimat Glomerular Filtration Rate 83, BUN/Creatinine Ratio 16, Glucose Level 131H, Calcium Level 9.1, Corrected Calcium 9.3, Magnesium Level 1.8, Total Bilirubin 0.6, Aspartate Amino Transf (AST/SGOT) 17, Alanine Aminotransferase (ALT/SGPT) 16, Alkaline Phosphatase 102, Troponin I 0.731*H, Total Protein 7.0, Albumin 3.8, Phosphorus Level 1.7L 01/07/22 04:15: White Blood Count 9.4, Red Blood Count 4.38, Hemoglobin 13.1L, Hematocrit 41, Mean Corpuscular Volume 93, Mean Corpuscular Hemoglobin 30, Mean Corpuscular Hemoglobin Concent 32, Red Cell Distribution Width 12.9, Platelet Count 204, Mean Platelet Volume 11.3, Immature Granulocyte % (Auto) 0, Neutrophils (%) (Auto) 73, Lymphocytes (%) (Auto) 16, Monocytes (%) (Auto) 11, Eosinophils (%) (Auto) 0, Basophils (%) (Auto) 0, Neutrophils # (Auto) 6.8, Lymphocytes # (Auto) 1.5, Monocytes # (Auto) 1.0, Eosinophils # (Auto) 0.0, Basophils # (Auto) 0.0, I mmature Granulocyte # (Auto) 0.0, Sodium Level 144, Potassium Level 3.8, Chloride Level 111H, Carbon Dioxide Level 23, Anion Gap 10, Blood Urea Nitrogen 18, Creatinine 1.12, Estimat Glomerular Filtration Rate 68, BUN/Creatinine Ratio 16, Glucose Level 91, Calcium Level 9.0, Corrected Calcium 9.5, Magnesium Level 1.9, Total Bilirubin 0.6, Aspartate Amino Transf (AST/SGOT) 16, Alanine Aminotransferase (ALT/SGPT) 12, Alkaline Phosphatase 86, Total Protein 6.3L, Albumin 3.4, Phosphorus Level 2.9 Microbiology 01/05/22 MRSA Screen - Final, Complete MRSA not isolated Pending Labs Microbiology Date/Time Source Procedure Growth Status 01/05/22 23:52 Nasal MRSA Screen - Final MRSA not isolated Complete Laboratory Tests 01/05/22 20:20: White Blood Count 7.1, Red Blood Count 4.81, Hemoglobin 14.2, Hematocrit 44, Mean Corpuscular Volume 92, Mean Corpuscular Hemoglobin 30, Mean Corpuscular Hemoglobin Concent 32, Red Cell Distribution Width 12.4, Platelet Count 220, Mean Platelet Volume 10.5, Immature Granulocyte % (Auto) 0, Neutrophils (%) (Auto) 56, Lymphocytes (%) (Auto) 33, Monocytes (%) (Auto) 9, Eosinophils (%) (Auto) 2, Basophils (%) (Auto) 0, Neutrophils # (Auto) 4.0, Lymphocytes # (Auto) 2.3, Monocytes # (Auto) 0.6, Eosinophils # (Auto) 0.2, Basophils # (Auto) 0.0, Immature Granulocyte # (Auto) 0.0, Prothrombin Time 12.3, INR Comment 0.9, Activated Partial Thromboplast Time 33, D-Dimer 0.83, Sodium Level 144, Potassium Level 4.1, Chloride Level 108, Carbon Dioxide Level 25, Anion Gap 11, Blood Urea Nitrogen 20, Creatinine 1.22, Estimat Glomerular Filtration Rate 61, BUN/Creatinine Ratio 16, Glucose Level 80, Calcium Level 9.2, Corrected Calcium 9.1, Magnesium Level 1.9, Total Bilirubin 0.6, Aspartate Amino Transf (AST/SGOT) 18, Alanine Aminotransferase (ALT/SGPT) 16, Alkaline Phosphatase 88, Total Creatine Kinase 88, Creatine Kinase MB 2.0, Myoglobin 51.7, Troponin I < 0.028, B-Type Natriuretic Peptide 50.5, Total Protein 7.6, Albumin 4.1, TSH [place] Testing 4.18 01/05/22 20:30: Influenza Type A (RT-PCR) Not Detected, Influenza Type B (RT-PCR) Not Detected, SARS-CoV-2 RNA (RT-PCR) Not Detected 01/06/22 04:06: White Blood Count 10.0, Red Blood Count 4.73, Hemoglobin 14.2, Hematocrit 43, Mean Corpuscular Volume 91, Mean Corpuscular Hemoglobin 30, Mean Corpuscular Hemoglobin Concent 33, Red Cell Distribution Width 12.5, Platelet Count 207, Mean Platelet Volume 11.0, Immature Granulocyte % (Auto) 0, Neutrophils (%) (Auto) 80, Lymphocytes (%) (Auto) 13, Monocytes (%) (Auto) 6, Eosinophils (%) (Auto) 1, Basophils (%) (Auto) 0, Neutrophils # (Auto) 8.0, Lymphocytes # (Auto) 1.3, Monocytes # (Auto) 0.6, Eosinophils # (Auto) 0.1, Basophils # (Auto) 0.0, Immature Granulocyte # (Auto) 0.0, Sodium Level 142, Potassium Level 3.7, Chloride Level 110, Carbon Dioxide Level 19, Anion Gap 13, Blood Urea Nitrogen 15, Creatinine 0.95, Estimat Glomerular Filtration Rate 83, BUN/Creatinine Ratio 16, Glucose Level 131, Calcium Level 9.1, Corrected Calcium 9.3, Magnesium Level 1.8, Total Bilirubin 0.6, Aspartate Amino Transf (AST/SGOT) 17, Alanine Aminotransferase (ALT/SGPT) 16, Alkaline Phosphatase 102, Troponin I 0.731, Total Protein 7.0, Albumin 3.8, Phosphorus Level 1.7 01/07/22 04:15: White Blood Count 9.4, Red Blood Count 4.38, Hemoglobin 13.1, Hematocrit 41, Mean Corpuscular Volume 93, Mean Corpuscular Hemoglobin 30, Mean Corpuscular Hemoglobin Concent 32, Red Cell Distribution Width 12.9, Platelet Count 204, Mean Platelet Volume 11.3, Immature Granulocyte % (Auto) 0, Neutrophils (%) (Auto) 73, Lymphocytes (%) (Auto) 16, Monocytes (%) (Auto) 11, Eosinophils (%) (Auto) 0, Basophils (%) (Auto) 0, Neutrophils # (Auto) 6.8, Lymphocytes # (Auto) 1.5, Monocytes # (Auto) 1.0, Eosinophils # (Auto) 0.0, Basophils # (Auto) 0.0, Immature Granulocyte # (Auto) 0.0, Sodium Level 144, Potassium Level 3.8, Chloride Level 111, Carbon Dioxide Level 23, Anion Gap 10, Blood Urea Nitrogen 18, Creatinine 1.12, Estimat Glomerular Filtration Rate 68, BUN/Creatinine Ratio 16, Glucose Level 91, Calcium Level 9.0, Corrected Calcium 9.5, Magnesium Level 1.9, Total Bilirubin 0.6, Aspartate Amino Transf (AST/SGOT) 16, Alanine Aminotransferase (ALT/SGPT) 12, Alkaline Phosphatase 86, Total Protein 6.3, Albumin 3.4, Phosphorus Level 2.9 Discharge Home Medications: Active Scripts Active Lisinopril 20 Mg Tablet 40 Mg PO DAILY Norvasc (Amlodipine Besylate) 10 Mg Tablet 10 Mg PO DAILY Metoprolol Succinate 100 Mg Tab.er.24h 100 Mg PO DAILY Reported Etodolac 500 Mg Tablet 500 Mg PO BID Simvastatin 80 Mg Tablet 40 Mg PO HS TAKES OF AN 80MG LAST FILLED 08-19-2021 #45/90 DAY SUPPLY Neurontin (Gabapentin) 300 Mg Capsule 900 Mg PO BID TAKES 3 (300MG) TABS LAST FILLED 08-19-2021 #540/90 DAY SUPPLY Instructions to patient/family Please see electronic discharge instructions given to patient. ISMAEL GOMEZ DO Jan 07, 2022 12:41
--- NOTE | 2022-01-15 08:48 | Conscious Sedation/ASA ---
Conscious Sedation Pre-Proced ASA Score For ASA 3 and 4: Consider anesthesia and medical clearance. Also, for patients with a history of failed moderate sedation consider anesthesia. Airway Lungs Heart ASA score ASA 1: a normal healthy patient ASA 2: a patient with a mild systemic disease (mid diabetes, controlled hypertension, obesity ASA 3: a patient with a severe systemic disease that limits activity (angina, COPD, prior Myocardial infarction) ASA 4: a patient with an incapacitating disease that is a constant threat to life (CHF, renal failure) ASA 5: a moribund patient not expected to survive 24 hrs. (ruptured aneurysm) ASA 6: a declared brain- patient whose organs are being harvested. For emergent operations, add the letter E after the classification Sedation Plan The patient is an appropriate candidate to undergo the planned procedure, sedation, and anesthesia. The patient immediately re-assessed prior to indication. ROBB,MarJan 15, 2022 08:48
--- NOTE | 2022-01-15 18:13 | ED Cardiac General ---
History of Present Illness General Chief Complaint: Cardiac/General Problems Stated Complaint: HYPERTENSIVE URGENCY Nursing Triage Note: PT ARRIVED POV. PT STATED THAT HE WAS WATCHING TV AND GOT DIZZY. PT TOOK HIS BP AND IT READ 217/94. Source: patient (TALKNKS NON-STOP AND DIFFICULT TO KEEP ON SUBJECT. PT IS LIMITED HISTORIAN. ), other (DAUGHTER ARRIVES AND IS ABLE TO GIVE ADDITIONAL PMH. ) History of Present Illness Date Seen by Provider: Jan 05, 2022 Time Seen by Provider: 20:18 Initial Comments PT ARRIVES VIA POV FROM HOME3 C/O ELEVATED BLOOD PRESSURE AT HOME --200/84 STATES HE BEGAN FEELING DIZZY AROUND 1914, WHILE SITTING AND WATCHING TV. STATES HE FELT FINE ALL DAY. STATES DIZZINESS IS NOT A SPINNING SENSATION, AND IS MUCH BETTER NOW, BUT STILL FEELS SLIGHTLY DIZZY VISION WAS SLIGHTLY BLURRY, NOT NOW NO NAUSEA/VOMITING NO HEADACHE NO CHEST PAIN NO INCREASE IN CHRONIC SHORTNESS OF BREATH NO SWELLING IN LEGS/ FEET OR PAIN IN CALVES NO SWEATS LEFT ARM FELT SLIGHTLY TINGLY, NOT NOW. NO MOTOR DEFICITS NO PROBLEMS WALKING OR TALKING OR SWALLOWING NO SYNCOPE OR INJURY TO HIS HEAD A WEEK AGO, HE HAD SOME "CONGESTION" AND "JUST DIDN'T FEEL GOOD" ON WEDNESDAY AND WEDNESDAY, LASTED 24 HOURS, AND HAS FELT FINE UNTIL THIS EVENING. DID NOT SEEK CARE FOR THOSE SYMPTOMS PT TAKES LISINOPRIL 40 MG DAILY DENIES ANY DOSE CHANGES OR MISSED DOSES OF MEDICATION STATES HIS BLOOD PRESSURE IS NORMALLY IN 140'S AT THE HIGHEST. HE ALSO TAKES SIMVASTATIN AND ETODOLAC DOES NOT TAKE ASPIRIN OR BLOOD THINNERS. PT HAS HAD COVID-19 VACCINE X 3, NO FLU VACCINE. PT LIVES ALONE DAUGHTER ARRIVES WITH PATIENT PCP: AN[facility] IN [place] Allergies and Home Medications Allergies Coded Allergies: No Known Drug Allergies (Unverified , 09/06/13) Patient Home Medication List Home Medication List Reviewed: Yes Amlodipine Besylate (Norvasc) 10 Mg Tablet, 10 MG PO DAILY Prescribed by: BEBO JEFFREY on 01/07/22 0904 Etodolac (Etodolac) 500 Mg Tablet, 500 MG PO BID, (Reported) Entered as Reported by: KINZA LEROY on 01/07/22 1101 Last Action: Reviewed Gabapentin (Neurontin) 300 Mg Capsule, 900 MG PO BID, (Reported) Entered as Reported by: KINZA LEROY on 01/07/221100 Last Action: Reviewed Lisinopril (Lisinopril) 20 Mg Tablet, 40 MG PO DAILY Prescribed by: BEBO JEFFREY on 01/07/22903 Metoprolol Succinate (Metoprolol Succinate) 100 Mg Tab.er.24h, 100 MG PO DAILY Prescribed by: BEBO JEFFREY on 01/07/22903 Simvastatin (Simvastatin) 80 Mg Tablet, 40 MG PO HS, (Reported) Entered as Reported by: KINZA LEROY on 01/07/221100 Last Action: Reviewed Review of Systems Review of Systems Constitutional: see HPI; No chills, No diaphoresis; dizziness; No fever, No malaise, No weakness EENTM: See HPI, Blurred Vision Respiratory: See HPI Cardiovascular: Denies Chest Pain, Denies Edema, Denies Irregular Heart Rate; Lightheadedness; Denies Palpitations, Denies Syncope Gastrointestinal: No Symptoms Reported; Denies Abdominal Pain, Denies Nausea, Denies Vomiting Genitourinary: No Symptoms Reported Musculoskeletal: no symptoms reported Skin: no symptoms reported Psychiatric/Neurological: See HPI (DIZZINESS); Denies Headache, Denies Numbness, Denies Seizure; Tingling; Denies Weakness Endocrine: No Symptoms Reported Hematologic/Lymphatic: No Symptoms Reported Past Bjvnccd-Znbkam-Wbiioq Hx Patient Social History Tobacco Use?: No Tobacco type used: Cigarettes Smoking Status: Former Smoker (15 pack years) Use of E-Cig and/or Vaping dev: No Substance use?: No Alcohol Use?: No Pt feels they are or have been: No Immunizations Up To Date Influenza Vaccine Up-to-Date: No; Not Current COVID19 Vaccine Hemodialysis Lab Technician: Moderna Seasonal Allergies Seasonal Allergies: No Past Medical History Surgeries: Yes (prostate,AUS) Orthopedic, Prostatectomy Respiratory: No Cardiac: Yes High Cholesterol, Hypertension Neurological: No Genitourinary: Yes (PROSTATE CANCER) Prostate Problems Gastrointestinal: No Musculoskeletal: Yes Degenerate Disk Disease, Arthritis, Back Injury, Chronic Back Pain Endocrine: No HEENT: No Cancer: Yes Prostate Did You Recieve Any Treatments: Yes What Type of Treatment Did You: Surgical Intervention Psychosocial: No Integumentary: No Blood Disorders: No Physical Exam Vital Signs Capillary Refill : Less Than 3 Seconds Height, Weight, BMI Height: 5'8" Weight: 165lbs. oz. 74.384624ez; 25.32 BMI Method:Stated General Appearance: No Apparent Distress, WD/WN, Other (LAUGHING, TALKING NON-STOP--DIFFICULT TO KEEP ON SUBJECT--TALKS ABOUT EVERYTHING EXCEPT WHY HE IS HERE. ) HEENT: PERRL/EOMI, TMs Normal, Normal ENT Inspection, Pharynx Normal, Moist Mucous Membranes, Other (POOR DENTITION) Neck: Full Range of Motion, Normal Inspection, Non Tender, Supple; No Carotid Bruit, No JVD Respiratory: Normal Breath Sounds, No Accessory Muscle Use, No Respiratory Distress Cardiovascular: Regular Rate, Rhythm, No Gallop, No JVD, Normal Peripheral Pulses, Systolic Murmur (1-2 / 6) Gastrointestinal: Normal Bowel Sounds, No Organomegaly, No Pulsatile Mass, Non Tender, Soft Extremity: Normal Capillary Refill, Normal Range of Motion, Non Tender, No Calf Tenderness, Pedal Edema (TRACE TO 1+ BILATERALLY--NORMAL, PER PT) Neurologic/Psychiatric: Alert, Oriented x3, No Motor/Sensory Deficits, Normal Mood/Affect, cnc technician II-XII Norm as Tested; No Abnormal Cerebellar Tests Skin: Normal Color, Warm/Dry Progress/Results/Core Measures Results/Orders Lab Results Laboratory Tests Test 01/05/22 20:20 01/05/22 20:30 Range/Units White Blood Count 7.1 4.3-11.0 10^3/uL Red Blood Count 4.81 4.30-5.52 10^6/uL Hemoglobin 14.2 13.3-17.7 g/dL Hematocrit 44 40-54 % Mean Corpuscular Volume 92 80-99 fL Mean Corpuscular Hemoglobin 30 25-34 pg Mean Corpuscular Hemoglobin Concent 32 32-36 g/dL Red Cell Distribution Width 12.4 10.0-14.5 % Platelet Count 220 130-400 10^3/uL Mean Platelet Volume 10.5 9.0-12.2 fL Immature Granulocyte % (Auto) 0 % Neutrophils (%) (Auto) 56 42-75 % Lymphocytes (%) (Auto) 33 12-44 % Monocytes (%) (Auto) 9 0-12 % Eosinophils (%) (Auto) 2 0-10 % Basophils (%) (Auto) 0 0-10 % Neutrophils # (Auto) 4.0 1.8-7.8 10^3/uL Lymphocytes # (Auto) 2.3 1.0-4.0 10^3/uL Monocytes # (Auto) 0.6 0.0-1.0 10^3/uL Eosinophils # (Auto) 0.2 0.0-0.3 10^3/uL Basophils # (Auto) 0.0 0.0-0.1 10^3/uL Immature Granulocyte # (Auto) 0.0 0.0-0.1 10^3/uL Prothrombin Time 12.3 12.2-14.7 SEC INR Comment 0.9 0.8-1.4 Activated Partial Thromboplast Time 33 24-35 SEC D-Dimer 0.83 H 0.00-0.49 UG/ML Sodium Level 144 135-145 MMOL/L Potassium Level 4.1 3.6-5.0 MMOL/L Chloride Level 108 H 98-107 MMOL/L Carbon Dioxide Level 25 21-32 MMOL/L Anion Gap 11 5-14 MMOL/L Blood Urea Nitrogen 20 H 7-18 MG/DL Creatinine 1.22 0.60-1.30 MG/DL Estimat Glomerular Filtration Rate 61 BUN/Creatinine Ratio 16 Glucose Level 80 70-105 MG/DL Calcium Level 9.2 8.5-10.1 MG/DL Corrected Calcium 9.1 8.5-10.1 MG/DL Magnesium Level 1.9 1.6-2.4 MG/DL Total Bilirubin 0.6 0.1-1.0 MG/DL Aspartate Amino Transf (AST/SGOT) 18 5-34 U/L Alanine Aminotransferase (ALT/SGPT) 16 0-55 U/L Alkaline Phosphatase 88 40-136 U/L Total Creatine Kinase 88 30-200 U/L Creatine Kinase MB 2.0 <6.6 NG/ML Myoglobin 51.7 10.0-92.0 NG/ML Troponin I < 0.028 <0.028 NG/ML B-Type Natriuretic Peptide 50.5 <100.0 PG/ML Total Protein 7.6 6.4-8.2 GM/DL Albumin 4.1 3.2-4.5 GM/DL TSH [place] Testing 4.18 0.35-4.94 UIU/ML Influenza Type A (RT-PCR) Not Detected Not Detecte Influenza Type B (RT-PCR) Not Detected Not Detecte SARS-CoV-2 RNA (RT-PCR) Not Detected Not Detecte My Orders Orders - LUCIA OLIVIER DO Ed Iv/Invasive Line Start (01/05/22 20:27) Ekg Tracing (01/05/22:) Monitor-Rhythm Ecg Trace Only (01/05/22:) Ct Head Wo-R/O Stroke (01/05/22 20:) Chest 1 View, Ap/Pa Only (01/05/22:) Bnp [facility] (01/05/22:) Cbc With Automated Diff (01/05/22:) Comprehensive Metabolic Panel (01/05/22:) Creatine Kinase (01/05/22:) Creatine Kinase Mb (01/05/22:) Fibrin Degradation Products (01/05/22:) Magnesium (01/05/22:) Protime With Inr (01/05/22:) Partial Thromboplastin Time (01/05/22:) Thyroid Analyzer (01/05/22:) Myoglobin Serum (01/05/22 20:) Troponin I [facility] (01/05/22 20:) Covid 19 Inhouse Test (01/05/22:) Influenza A And B By Pcr (01/05/22:) Isolation Central Supply Req (01/05/22 20:27) Labetalol Injection (Normodyne Injection (01/05/22 20:30) Hydralazine Injection (Apresoline Inject (01/05/22 21:00) Ct Angio Head/Neck (01/05/22 21:25) Ed Iv/Invasive Line Start (01/05/22 21:25) Ed Iv/Invasive Line Start (01/05/22 21:25) Ns Iv 1000 Ml (Sodium Chloride 0.9%) (01/05/22 21:30) Iohexol Injection (Omnipaque 350 Mg/Ml 1 (01/05/22 21:45) Sodium Chloride Flush (Catheter Flush Sy (01/05/22 21:45) Ns (Ivpb) (Sodium Chloride 0.9% Ivpb Bag (01/05/22 21:45) Hydralazine Injection (Apresoline Inject (01/05/22 22:15) Blood Pressure Mean: 103 Progress Progress Note : Progress Note NO DETERIORATION IN PT'S CONDITION DURING ER STAY BP REMAINS ELEVATED --UP TO 240 SYSTOLIC, DESPITE MULTIPLE DOSES OF HYDRALAZINE. LABETALOL HELD DUE TO HR IN 50'S. WILL START CARDENE DRIP. PT ESSENTIALLY ASYMPTOMATIC DURING ENTIRE ER STAY. NO C/O DIZZINESS OR ANY OTHER SYMPTOMS OF ANY KIND FOR REMAINDER OF ER STAY Initial ECG Impression Date: Jan 05, 2022 Initial ECG Impression Time: 20:33 Initial ECG Rate: 59 Initial ECG Rhythm: Normal Sinus Diagnostic Imaging Comments CXR--PER RADIOLOGIST REPORT FINDINGS: Heart size and pulmonary vascularity are within normal limits, and the lungs are clear, bilaterally. IMPRESSION: Unremarkable chest. CT HEAD--PER RADIOLOGIST REPORT The ventricles and sulci are slightly increased in prominence however no hemorrhage is identified. There is no abnormal mass effect or shift of midline structures. Mucous retention cyst or polyp is again noted within the right maxillary sinus. There is partial opacification of right mastoid air cells. Periapical lucencies are seen involving anterior teeth. IMPRESSION: Further volume loss in the brain which may be related to chronic microvascular ischemia. No acute intracranial abnormality identified. There is progressive worsening of dentition and clinical correlation would be useful. CT ANGIOGRAM HEAD/NECK--PER RADIOLOGIST REPORT AT 4 There is a normal three-vessel branching pattern arising from the aortic arch. Carotid arteries are widely patent in the neck. Both vertebral arteries are also patent. There is no evidence of stenosis or occlusion. No intimal abnormality is identified. There is no evidence of pseudoaneurysm. There is mild lower cervical degenerative disc disease with fusion of the right C2-C3 facet joint. Anterior, middle and posterior cerebral arteries are of normal caliber without evidence of filling defect, occlusion or stenosis. No aneurysm or vascular malformation is identified. There is no abnormal contrast enhancement within the brain parenchyma. IMPRESSION: No CTA evidence of great vessel abnormality in the head or neck. Reviewed: Reviewed by Me Departure Communication (Admissions) 2231--SPOKE WITH DR. GOMEZ, HOSPITALIST, ACCEPTS PT FOR ADMIT. 2234--REPORT TO E-ICU PHYSICIAN. ORDERS NOTED. Impression Primary Impression: Hypertensive urgency Disposition: ADMITTED INPATIENT Condition: Stable Admissions Decision to Admit Reason: Admit from ER (General) Decision to Admit/Date: Jan 05, 2022 Time/Decision to Admit Time: 22:35 Departure-Patient Inst. Referrals: NO,LOCAL PHYSICIAN (PCP) Primary Care Physician Patient Instructions: Cardiac Catheterization (DC) Scripts Lisinopril (Lisinopril) 20 Mg Tablet 40 MG PO DAILY, #30 TAB 3 Refills Prov: BEBO JEFFREY TIE FASTENER 01/07/22 Amlodipine Besylate (Norvasc) 10 Mg Tablet 10 MG PO DAILY, #30 TAB 3 Refills Prov: BEBO JEFFREYP 01/07/22 Metoprolol Succinate (Metoprolol Succinate) 100 Mg Tab.er.24h 100 MG PO DAILY, #30 TAB 3 Refills Prov: BEBO JEFFREYP 01/07/22 LUCIA LOIVIER DO Jan 15, 2022 18:13
== END 2022-01-07 14:32 | disposition home or self-care (01) | DRG 282 ==
LOC: EDUNIT# 20:12 → ER 20:14 → ICU 22:50
PROVIDERS: ADMIT Internal Medicine; ATTEND Internal Medicine
PROC: 4A023N7 Measurement of Cardiac Sampling and Pressure, Left Heart, Percutaneous Approach (ICD-10-PCS; principal; 2022-01-06)
PROC: B2111ZZ Fluoroscopy of Multiple Coronary Arteries using Low Osmolar Contrast (ICD-10-PCS; 2022-01-06)
PROC: B2151ZZ Fluoroscopy of Left Heart using Low Osmolar Contrast (ICD-10-PCS; 2022-01-06)
DX: I16.0 Hypertensive urgency (principal); I21.A1 Myocardial infarction type 2; I10 Essential (primary) hypertension; E78.00 Pure hypercholesterolemia, unspecified; J43.9 Emphysema, unspecified; Z85.46 Personal history of malignant neoplasm of prostate; Z90.79 Acquired absence of other genital organ(s); Z87.891 Personal history of nicotine dependence; Z20.822 Contact with and (suspected) exposure to COVID-19
CPT/HCPCS: 36415; 70450; 70496; 70498; 71045; 80053; 82550; 82553; 83735; 83874; 83880; 84100; 84443; 84484; 85025; 85379; 85610; 85730; 87081; 87636; 93005; 93041; 93306; 93458; 96374; 96376

== ENCOUNTER 2022-03-05 20:24 | Emergency (ER) | payer MEDICARE, OTHER ==
[~2022-03-05] VITALS: Ht 172.7 cm; Wt 74.8 kg
[~2022-03-05 20:24] MED LIST changes: +AMLO10TA4 PO; +ETOD500T3 PO; +GABA300C PO; +LISI20TA26 PO; +MTP100TCR PO; +SIMV80TA21 PO
[2022-03-05] MEDS ORDERED: TRANEXAMIC ACID INJECTION 1,000 MG in NS (IVPB) 50 ML IV ONE (20:45)
--- NOTE | 2022-03-05 20:48 | ED EENT ---
History of Present Illness General Chief Complaint: Oral/Throat Problems Stated Complaint: BLEEDING FOR 8 HRS AFTER DENTAL SURGERY Source: patient Exam Limitations: no limitations History of Present Illness Date Seen by Provider: Mar 05, 2022 Time Seen by Provider: 20:32 Initial Comments Patient is a 77-year-old male who presents to the emergency room with a chief complaint of bleeding from the upper gumline after having 4 teeth removed at about noon today. He is not on blood thinners. He states he has been at home all day biting on gauze and continues to bleed. He denies feeling nauseous or lightheaded when he stands up. No significant pain. No fevers or chills. Timing/Duration: this afternoon Location: dental Prearrival Treatment: other (direct pressure) Associated Symptoms: denies symptoms Allergies and Home Medications Allergies Coded Allergies: No Known Drug Allergies (Unverified , 09/06/13) Patient Home Medication List Home Medication List Reviewed: Yes Amlodipine Besylate (Norvasc) 10 Mg Tablet, 10 MG PO DAILY Prescribed by: BEBO JEFFREY on 01/07/22903 Etodolac (Etodolac) 500 Mg Tablet, 500 MG PO BID, (Reported) Entered as Reported by: KINZA LEROY on 01/07/22 110 Gabapentin (Neurontin) 300 Mg Capsule, 900 MG PO BID, (Reported) Entered as Reported by: KINZA LEROY on 01/07/221100 Lisinopril (Lisinopril) 20 Mg Tablet, 40 MG PO DAILY Prescribed by: BEBO JEFFREY on 01/07/22903 Metoprolol Succinate (Metoprolol Succinate) 100 Mg Tab.er.24h, 100 MG PO DAILY Prescribed by: BEBO JEFFREY on 01/07/22 09 Simvastatin (Simvastatin) 80 Mg Tablet, 40 MG PO HS, (Reported) Entered as Reported by: KINZA LEROY on 01/07/22 110 Review of Systems Review of Systems Constitutional: see HPI Mouth: other (bleeding from gum line) Throat: no symptoms reported Respiratory: no symptoms reported Cardiovascular: no symptoms reported Gastrointestinal: no symptoms reported Past Xmyabbx-Qbskoz-Brotlq Hx Patient Social History Tobacco Use?: No Substance use?: No Alcohol Use?: No Seasonal Allergies Seasonal Allergies: No Past Medical History Surgeries: Yes (prostate,AUS) Orthopedic, Prostatectomy Respiratory: No Cardiac: Yes High Cholesterol, Hypertension Neurological: No Genitourinary: Yes (PROSTATE CANCER) Prostate Problems Gastrointestinal: No Musculoskeletal: Yes Degenerate Disk Disease, Arthritis, Back Injury, Chronic Back Pain Endocrine: No HEENT: No Cancer: Yes Prostate Did You Recieve Any Treatments: Yes What Type of Treatment Did You: Surgical Intervention Psychosocial: No Integumentary: No Blood Disorders: No Physical Exam Height, Weight, BMI Height: 5'8" Weight: 165lbs. oz. 74.419600py; 25.32 BMI Method:Stated General Appearance: WD/WN, no apparent distress Eyes: bilateral eye normal inspection Ears: bilateral ear auricle normal Nose: normal inspection Mouth/Throat: other (post extraction upper front teeth. sutures in place; blood clots visible in the crypts where teeth extracted. oozing blood from gingiva noted; mild edema of gumline) Neck: full range of motion Cardiovascular: regular rate, rhythm Respiratory: no respiratory distress, no accessory muscle use Progress/Results/Core Measures Results/Orders My Orders Orders - FRANCES AUGUSTINE MD Tranexamic Acid Injection (Cyklokapron I (03/05/22 20:45) Progress Progress Note : Time: 20:45 Progress Note Patient seen and evaluated. POst dental extraction bleeding from the upper gums. Not excessive. TXA ordered and gauze 4x4s soaked with the TXA. Had patient hold the 4x4s with pressure to the gum line for 15 minutes. Bleeding controlled. Departure Impression Primary Impression: Gingival bleeding Disposition: 01 HOME, SELF-CARE Condition: Stable Departure-Patient Inst. Decision time for Depature: 20:43 Referrals: NO,LOCAL PHYSICIAN (PCP/Family) Primary Care Physician Patient Instructions: Bleeding Gums Add. Discharge Instructions: Avoid hard foods; using a straw. You can continue to rinse gently with ice water for minimal bleeding. Continue any medications your dentist and primary care doctor have you taking. Return to the Emergency Department for any new, concerning or emergent complaints. FRANCES AUGUSTINE MD Mar 05, 2022 20:48
[2022-03-05 21:30] VITALS: BP 80/64
== END 2022-03-05 21:31 | disposition home or self-care (01) ==
LOC: EDUNIT# 20:24 → ER 20:26
DX: K91.841 Postprocedural hemorrhage of a digestive system organ or structure following other procedure (principal)
CPT/HCPCS: 99281

== ENCOUNTER → 2022-04-17 | Outpatient (CLI) | payer MEDICARE, OTHER ==
--- NOTE | 2022-04-17 16:54 | Diagnostic Imaging Report ---
EXAMINATION: Lumbar spine radiographs, 3 views. COMPARISON: None. HISTORY: 77-year-old male, low back pain extending down the left lower extremity. FINDINGS: There are 5 lumbar-type vertebral bodies. There is no identified compression deformity or fracture. There are multilevel mild endplate degenerative related changes of the thoracolumbar spine. There are vascular calcifications. The facet joints are grossly unremarkable. Unremarkable appearance of the sacroiliac joints. There is severe osteoarthritis of the left hip and moderate osteoarthritis of the right hip. There are surgical clips overlying the pelvis. There are multiple probable gallstones. IMPRESSION: 1. Multilevel mild disc degenerative changes of the lumbar spine. 2. No identified compression deformity or fracture. 3. Advanced arthritis of the left greater than right hips. 4. Multiple probable gallstones. Dictated by: Dictated on workstation # [id number]
== END ==
LOC: RAD 10:16
DX: M51.36 Other intervertebral disc degeneration, lumbar region (principal); M16.0 Bilateral primary osteoarthritis of hip
CPT/HCPCS: 72100

== ENCOUNTER → 2022-06-09 | Outpatient (CLI) | payer OTHER ==
--- NOTE | 2022-06-09 16:16 | Diagnostic Imaging Report ---
INDICATION: Left hip pain COMPARISON: None available. TECHNIQUE: 2 radiographs of the left hip dated 06/09/2022. FINDINGS: Multiple surgical clips are noted involving the pelvis, overlying the midline pelvis extending to overlie the left pelvic sidewall. No acute fracture or dislocation. Severe joint space narrowing of the left hip is noted, particularly superiorly. This is associated with prominent osteophyte formation. Additionally, sclerosis of articular surface is noted with subchondral cyst formation. No collapse of the left femoral head. No suspicious radiopaque foreign body. IMPRESSION: No acute fracture with severe end-stage degenerative changes of the left hip. Dictated by: Dictated on workstation # [id number]
== END ==
LOC: RAD 10:28
PROVIDERS: ATTEND Nurse Practitioner Primary Care
DX: M16.12 Unilateral primary osteoarthritis, left hip (principal)
CPT/HCPCS: 73502

== ENCOUNTER → 2022-06-23 | Outpatient (CLI) | payer MEDICARE, OTHER | LOC: ORTHO 09:04 | PROVIDERS: ATTEND Orthopaedic Surgery | DX: M16.12 Unilateral primary osteoarthritis, left hip (principal) | CPT/HCPCS: 99203 ==

== ENCOUNTER → 2022-06-24 | Outpatient (CLI) | payer MEDICARE ==
[2022-06-24 10:32] LABS: BASOPHILS % (AUTO) 0 % (0-10); EOSINOPHILS # (AUTO) 0.1 10^3/uL (0.0-0.3); EOSINOPHILS % (AUTO) 1 % (0-10); HEMATOCRIT 43 % (40-54); HEMOGLOBIN 14.2 g/dL (13.3-17.7); LYMPHOCYTES # (AUTO) 1.8 10^3/uL (1.0-4.0); LYMPHOCYTES % (AUTO) 33 % (12-44); MEAN CORPUSCULAR HEMOGLOBIN 30 pg (25-34); MEAN CORPUSCULAR HGB CONC 33 g/dL (32-36); MEAN CORPUSCULAR VOLUME 91 fL (80-99); MEAN PLATELET VOLUME 10.5 fL (9.0-12.2); MONOCYTES # (AUTO) 0.4 10^3/uL (0.0-1.0); MONOCYTES % (AUTO) 8 % (0-12); NEUTROPHILS # (AUTO) 3.2 10^3/uL (1.8-7.8); NEUTROPHILS % (AUTO) 58 % (42-75); PLATELET COUNT 234 10^3/uL (130-400); WHITE BLOOD COUNT 5.5 10^3/uL (4.3-11.0)
[2022-06-24 10:34] LABS: BILIRUBIN,URINE NEGATIVE (NEGATIVE); CLARITY,URINE CLEAR; COLOR,URINE YELLOW; GLUCOSE, URINE (UA) NEGATIVE (NEGATIVE); KETONES,URINE NEGATIVE (NEGATIVE); LEUKOCYTE ESTERASE ,URINE NEGATIVE (NEGATIVE); NITRITE,URINE NEGATIVE (NEGATIVE); PH,URINE 6.5 (5-9); PROTEIN,URINE NEGATIVE (NEGATIVE)
[2022-06-24 10:53] LABS: BACTERIA,URINE NEGATIVE /HPF; WBC,URINE RARE /HPF
[2022-06-24 10:57] LABS: CALCIUM 9.7 MG/DL (8.5-10.1); CREATININE SERUM 1.12 MG/DL (0.60-1.30); POTASSIUM 4.2 MMOL/L (3.6-5.0)
--- NOTE | 2022-06-24 11:11 | Diagnostic Imaging Report ---
INDICATION: Preoperative evaluation prior to hip surgery. COMPARISON: None FINDINGS: Frontal and lateral views of the chest demonstrate normal heart size and pulmonary vascularity. The lungs are clear. There are no signs of infiltrate, pleural effusions or pneumothoraces. The visualized osseous structures show no acute abnormalities. IMPRESSION: 1. No acute process. No signs of infiltrates, effusions or pneumothoraces. Dictated by: Dictated on workstation # [id number]
--- NOTE | 2022-06-24 11:55 | Diagnostic Imaging Report ---
INDICATION: Left hip pain COMPARISON: 06/09/2022 FINDINGS: 2 radiographic views of the left hip were obtained and again show advanced osteoarthritic changes. This consists of severe femoral acetabular joint space narrowing with sclerotic remodeling to the articular surfaces. Prominent subchondral cystic changes are also noted. No new acute fracture or dislocation is identified. Joint spaces otherwise maintained. Osseous structures are intact. No unexpected radiopaque foreign bodies are seen. IMPRESSION: 1. No new acute fracture or dislocation of the left hip. 2. Redemonstration of advanced osteoarthritic changes. Dictated by: Dictated on workstation # [id number]
== END ==
LOC: RAD 10:07
PROVIDERS: ATTEND Orthopaedic Surgery
DX: Z01.89 Encounter for other specified special examinations (principal)
CPT/HCPCS: 36415; 71046; 73502; 80048; 81000; 85025

== ENCOUNTER 2022-07-07 08:26 | Outpatient (CLI) | payer OTHER ==
[~2022-07-07] VITALS: Ht 172.7 cm; Wt 74.8 kg
[2022-07-07 10:06] VITALS: BP 156/78
[2022-07-07] MEDS ORDERED: CHOL200023 PO (10:15)
== END 2022-07-07 11:17 ==
LOC: PREOP 08:26
PROVIDERS: ATTEND Orthopaedic Surgery
DX: Z01.818 Encounter for other preprocedural examination (principal)
CPT/HCPCS: 87081; 93005

== ENCOUNTER → 2022-07-13 | Day surgery (SDC) | payer OTHER ==
[~2022-07-13] VITALS: Ht 172.7 cm; Wt 75.1 kg
[2022-07-13] VITALS (13 sets, daily range): BP systolic 121–183; BP diastolic 60–143
[~2022-07-13] MED LIST changes: +ACET-2267 PO; +ACETAMINOPHEN 500 MG TAB (TYLENOL) PO PRN; +AMLO-251 PO; +BISACODYL 5 MG (DULCOLAX) TABLET PO PRN; +CHOL200023 PO; +GLYCOPYRROLATE 0.2 MG/ML (ROBINUL) 2 ML VIAL ONE; +ISOFLURANE (FORANE) 15 ML/15 MIN INHALATION ONE; +LACTATED RINGERS 1,000 ML IV PRN; +LIDOCAINE PF 2% 5 ML (XYLOCAINE) VIAL ONE; +LISI40TA9 PO; +MEPERIDINE (DEMEROL) INJ 50 MG/ML IVP ONE; +METO50TA7 PO; +MIDAZOLAM 2 MG/2 ML (VERSED) VIAL ONE; +MILK OF MAGNESIA 400 MG/5 ML 30 ML UDC PO PRN; +NON-FORMULARY MEDICATION 1 EA EA (Simvastatin 40 MG) PO SCH; +NS (IVPB) 250 ML IV PRN; +NS IV 1000 ML 1,000 ML IV SCH; +NS IV 1000 ML 1,000 ML ONE; +ONDANSETRON 4 MG/2 ML (SDV) Z0FRAN IV PRN; +ONDANSETRON 4 MG/2 ML (SDV) Z0FRAN IVP PRN; +ONDANSETRON 4 MG/2 ML (SDV) Z0FRAN ONE; +ROCURONIUM 50 MG/5 ML (ZEMURON) VIAL IV ONE; +ROPIVACAINE 5MG/ML 30ML VIAL ONE; +ROSU40TA23 PO; +ROSUVASTATIN 20 MG (CRESTOR) TABLET PO SCH; +SEVOFLURANE (ULTANE) 15 ML INHAL SOLN ONE; +TRANEXAMIC ACID 100 MG/ML 10 ML INJECTION ONE; +TRANEXAMIC ACID INJECTION 1,000 MG in NS (IVPB) 50 ML IV ONE; +amLODIPine 10 MG (NORVASC) TAB PO SCH; +ceFAZolin INJECTION 2,000 MG in NS (IVPB) 50 ML IV ONE; +cloNIDine 0.1 MG (CATAPRES) TAB PO PRN; +fentaNYL INJ 100 MCG/2 ML AMP IVP ONE; +fentaNYL INJ 100 MCG/2 ML AMP ONE; +lisINopril 20 MG (PRINIVIL) TABLET PO SCH; +morphine INJ 10 MG/ML 1ML (SYR OR VIAL) IVP ONE; +morphine INJ 4 MG/ML 1 ML (VIAL/SYRINGE) IVP PRN; +proPOfol 200 MG/20 ML (DIPRIVAN) VIAL IV ONE
--- NOTE | 2022-07-13 07:15 | Progress Note-Pre Operative ---
Pre-Operative Progress Note Date of Available H&P: Jun 23, 2022 Date H&P Reviewed: July 13, 2022 Time H&P Reviewed: 07:10 History & Physical: H&P Reviewed, Patient Examed, No changes noted Pre-Operative Diagnosis: Left Hip Primary Osteoarthritis TESFAYE LAMB MD July 13, 2022 07:15
--- NOTE | 2022-07-13 09:50 | Operative Report - Ortho ---
Operative Report Surgeon (s)/Senior Media Planner (s) Surgeon TESFAYE LAMB MD Senior Media Planner n/a Pre-Operative Diagnosis Left Hip Primary Osteoarthritis Post-Operative Diagnosis same Operative Report Date of Procedure: July 13, 2022 Name of Procedure Performed: Left Total Hip Arthroplasty Description & Findings After obtaining informed consent and marking the patient in the preoperative holding area, the patient did receive antibiotics and was taken to the operating room. General anesthesia was induced and patient was positioned in the lateral decubitus position with the left side up. Left lower extremity was prepped and draped in the usual sterile fashion. Surgical timeout was taken. Posterolateral approach was utilized. Capsule and external rotators were taken down in one layer. Hip was dislocated without difficulty. Femoral neck osteotomy was performed and femoral head was removed. Acetabulum was exposed. Labrum and soft tissue was removed from the acetabulum. Sequential reaming was began beginning with a 48 mm reamer and reaming to a 52 mm. 52 mm trial was placed and had good fit. Trial was removed and the acetabulum was lavaged with normal saline; a 52 mm cup was impacted into place and had excellent press fit. A trial liner was put into place. Attention was turned to the femoral side, a [employer] cutter osteotome was used to removed bone near the greater trochanter. Canal finder was inserted followed by the lateralizing reamer. Sequential broaching was began with a 0 and was broached to a 4. Trial 127 degree neck and neutral 36 head were put into place. Leg lengths were grossly equal; the hip was stable in position of sleep, and stable in flexion and internal rotation. This was accepted. Hip was dislocated. Trial components were removed; size 4 broach was noted to be loose, and the canal was irrigated. Canal was broached to a size 5. Acetabulum was exposed and the trial liner was switched for a polyethylene liner. Liner was impacted and locking mechanism was checekd with a freer. A size 5 Accolade II was impacted into place and set at the same level as the broa ch. A neutral 36 mm ceramic head was impacted onto the murphy taper of the stem. Hip was once again located and found to have grossly equal leg lengths with stability in position of sleep as well as flexion and internal rotation. Dilute betadine soak was performed. Hip was irrigated. The fascial layer was closed with #2 StrataFix. The subcutaneous layer was closed with 2-0 Vicryl. Skin was closed with subcuticular V-loc. Wound was dressed with steri-strips, xeroform, 4x4s, ABD, and tape. Patient was placed in abduction pillow and transferred to a hospital bed without difficulty and was stable to the recovery room. Anesthesia Type General Estimated Blood Loss 300 mL Specimen(s) collected/removed None TESFAYE LAMB MD July 13, 2022 09:50
--- NOTE | 2022-07-13 11:15 | Consultation ---
HPI History of Present Illness: HPI/Chief Complaint CC: Left hip replacement POD # 0 HPI: This is a 77yoWM clinic patient of [facility] who has a h/o HTN and HLP who presented to [facility] following an uncomplicated left hip replacement by Dr Niño. Currently he states he has a dry mouth but no pain and no nausea. Overall he has no issues. Source: patient, family Exam Limitations: no limitations Date Seen 07/13/22 Attending Physician No,Local Physician PCP Admitting Physician: Christo Niño MD Attending Physician: Christo Niño MD Referring Physician Date of Admission Home Medications & Allergies Home Medications Reviewed patient Home Medication Reconciliation performed by pharmacy medication reconciliations customer account technician and/or nursing. Patients Allergies have been reviewed. Allergies Allergies Coded Allergies No Known Drug Allergies (Unverified07/07/22) Past Fjezngg-Qqiixl-Frvhao Hx Past Med/Social Hx: Reviewed Nursing Past Med/Soc Hx, Reviewed and Corrections made Patient Social History Marrital Status: single Employed/Student: retired Alcohol Use: Denies Use Recreational Drug Use: No Smoking Status: Former Smoker Former Smoker, Quit: Mar 15, 1979 Type Used: Cigarettes 2nd Hand Smoke Exposure: No Recent Foreign Travel: No Contact w/other who traveled: No Recent Hopitalizations: No Immunizations Up To Date Tetanus Booster (TDap): Less than 5yrs Date of Influenza Vaccine: Dec 15, 2022 Seasonal Allergies Seasonal Allergies: No Past Medical History Surgeries: Orthopedic, Prostatectomy Currently Using CPAP: No Currently Using BIPAP: No Cardiac: High Cholesterol, Hypertension Genitourinary: Prostate Problems Gastrointestinal: Chronic Diarrhea Musculoskeletal: Degenerate Disk Disease, Arthritis, Back Injury, Chronic Back Pain HEENT: Tinnitis Hearing Impairment: Hard of Hearing, Bilateral Hearing Aide Cancer: Prostate, Skin Did You Recieve Any Treatments: Yes What Type of Treatment Did You: Surgical Intervention Skin/Integumentary: Recent Skin Changes History of Blood Disorders: No Adverse Reaction to Blood Kevin: No Review of Systems Constitutional: see HPI, malaise, weakness EENTM: no symptoms reported Respiratory: no symptoms reported Cardiovascular: no symptoms reported Gastrointestinal: no symptoms reported Genitourinary: no symptoms reported Musculoskeletal: no symptoms reported Skin: no symptoms reported Psychiatric/Neurological: No Symptoms Reported All Other Systems Reviewed Negative Unless Noted: Yes Physical Exam Physical Exam Vital Signs Vital Signs - First Documented 07/13/22 06:15 Temp 36.9 Pulse 54 Resp 18 B/P (MAP) 175/82 (113) Pulse Ox 99 O2 Delivery Room Air Capillary Refill : Height, Weight, BMI Height: 5'8" Weight: 165lbs. oz. 74.981313bh; 25.07 BMI Method:Stated General Appearance: No Apparent Distress, WD/WN, Chronically ill Eyes: Bilateral Eye Normal Inspection, Bilateral Eye PERRL HEENT: PERRL/EOMI, Normal ENT Inspection, Pharynx Normal Neck: Full Range of Motion, Normal Inspection, Non Tender, Supple, Carotid Bruit Respiratory: Chest Non Tender, Lungs Clear, Normal Breath Sounds, No Accessory Muscle Use, No Respiratory Distress Cardiovascular: Regular Rate, Rhythm, No Edema, No Gallop, No JVD, No Murmur, Normal Peripheral Pulses Gastrointestinal: Normal Bowel Sounds, No Organomegaly, No Pulsatile Mass, Non Tender, Soft Back: Normal Inspection, No CVA Tenderness, No Vertebral Tenderness Extremity: Normal Capillary Refill, Normal Inspection, Normal Range of Motion (except pelvis and both legs), Non Tender, No Calf Tenderness, No Pedal Edema Neurologic/Psychiatric: Alert, Oriented x3, No Motor/Sensory Deficits, Normal Mood/Affect Skin: Normal Color, Warm/Dry Lymphatic: No Adenopathy Results Results/Procedures Labs Patient resulted labs reviewed. Assessment/Plan Assessment and Plan Assess & Plan/Chief Complaint Assessment: Left hip replacement HTN HLP Plan: Pain control Monitor labs Home meds ISMAEL GOMEZ DO July 13, 2022 11:15
--- NOTE | 2022-07-13 11:38 | Diagnostic Imaging Report ---
INDICATION: Arthroplasty FINDINGS: There are postsurgical changes of the left hip arthroplasty. Hardware is in satisfactory position. No fracture or dislocation. IMPRESSION: Stable post surgical changes of the left hip arthroplasty. Dictated by: Dictated on workstation # [id number]
[2022-07-13] MEDS: NS IV 1000 ML 1,000 ML IV SCH ×3 (12:04→20:07)
--- NOTE | 2022-07-13 13:46 | Occupational Therapy Eval ---
OT Evaluation-General/PLF Medical Diagnosis Admission Date Medical Diagnosis: THR Onset Date: July 13, 2022 Therapy Diagnosis Therapy Diagnosis: weakness Height/Weight Height (Feet): 5 Height (Inches): 8 Weight (Pounds): 165 Precautions Precautions/Isolations: Fall Prevention, Standard Precautions Weight Bear Status Weight Bearing Restriction: Weight Bearing/Tolerated Referral Referral Reason: Activity Tolerance, Self Care, Evaluation/Treatment Referral Comments DAPHNIE precautions Social History Home: mobile home Current Living Status: Alone Entry Into Home: Stairs With Railing Steps Into Home: 5 Steps Inside Home: 0 ADL-Prior Level of Function SCALE: Activities may be completed with or without assistive devices. 5-Wriieofqex-rcjwzed completes the activity by him/herself with no assistance fr om a helper. 5-Set-up or Clean-up Assistance-helper sets up or cleans up; patient completes activity. [place] assists only prior to or following the activity. 4-Supervision or Touching Assistance-helper provides verbal cues and/or touching/steadying and/or contact guard assistance as patient completes activity. Assistance may be provided throughout the activity or intermittently. 3-Partial/Moderate Assistance-helper does LESS THAN HALF the effort. [place] lifts, holds or supports trunk or limbs, but provides less than half the effort. 2-Substantial/Maximal Assistance-helper does MORE THAN HALF the effort. [place] lifts or holds trunk or limbs and provides more than half the effort. 2-Skuvhajjc-nbykbh does ALL the effort. Patient does none of the effort to complete the activity. Or, the assistance of 2 or more helpers is required for the patient to complete the activity. If activity was not attempted, code reason: 7-Patient Refused. 9-Not Applicable-not attempted and the patient did not perform the activity before the current illness, exacerbation or injury. 10-Not Attempted due to Environmental Limitations-(lack of equipment, weather restraints, etc.). 88-Not Attempted due to Medical Conditions or Safety Concerns. Self Care: Independent Functional Cognition: Independent Occupation: golf Drive Self: Yes OT Current Status Subjective Agreeable to therapy. Mental Status/Objective Patient Orientation: Person, Place, Time, Situation Attachments: IV Current Upper Extremity ROM BUE ROM WFLS, patiern is able to recall 3/3 precautions. Upper Extremity Strength BUE WFLs, ADL-Treatment Eating (QC): 6 Oral Hygiene (QC): 4 Shower/Bathe Self (QC): 7 Upper Body Dressing (QC): 4 Lower Body Dressing (QC): 3 On/Off Footwear (QC): 2 Toileting Hygiene (QC): 3 Education OT Patient Education: Correct positioning, Instructions don/doff splint/brace (abductor pillow), Instructions to caregiver (daughter), Modified ADL techniques, Progress toward Goal/Update tx plan, Purpose of tx/functional activities, Reviewed precautions, Rehab process, Safety issues, Transfer techniques, Use of adapted equipment Teaching Recipient: Patient Teaching Methods: Demonstration, Discussion Response to Teaching: Verbalize Understanding, Reinforcement Needed OT Product Development Specialist Goals Residential Goals Eating (QC): 6 Oral Hygiene (QC): 6 Toileting Hygiene (QC): 6 Shower/Bathe Self (QC): 6 Upper Body Dressing (QC): 6 Lower Body Dressing (QC): 6 On/Off Footwear (QC): 6 1=Demonstrate adherence to instructed precautions during ADL tasks. 2=Patient will verbalize/demonstrate understanding of assistive devices/modifications for ADL. 3=Patient will improve strength/tolerance for activity to enable patient to perform ADL's. OT Education/Plan Problem List/Assessment Assessment: Decreased Activ Tolerance, Decreased Safety Aware, Impaired Coordination, Impaired Self-Care Skills Discharge Recommendations Plan/Recommendations: Continue POC Equpiment Recommendations-D/C: Hip Kit Treatment Plan/Plan of Care Treatment,Training & Education: Yes Patient would benefit from OT for education, treatment and training to promote independence in ADL's, mobility, safety and/or upper extremity function for ADL's. Plan of Care: ADL Retraining, Functional Mobility, Group Exercise/Act as Ind, UE Funct Exercise/Act Treatment Duration: July 18, 2022 Frequency: 3 times per week (3-5 times per week) Estimated Hrs Per Day: .25 hour per day Rehab Potential: Good Time Start Time: 13:00 Stop Time: 13:25 DATE: July 13, 2022 Total Time Billed (hr/min): 25 Billed Treatment Time EVM, ADL 25 min EDUARDO HERNÁNDEZ OT July 13, 2022 13:46
--- NOTE | 2022-07-13 13:55 | Physical Therapy Evaluation ---
PT Evaluation-General Medical Diagnosis Admission Date July 13, 2022 Medical Diagnosis: left hip OA Onset Date: July 13, 2022 Therapy Diagnosis Therapy Diagnosis: debility/weakness Height/Weight Height (Feet): 5 Height (Inches): 8 Weight (Pounds): 165 Precautions Precautions/Isolations: Fall Prevention, Standard Precautions Weight Bear Status Right Lower Extremity: Right Full Weight Bearing Left Lower Extremity: Left Weight Bearing/Tolerated Referral Physician: [place] Reason for Referral: Evaluation/Treatment Medical History Pertinent Medical History: HTN, OA Current History s/p left THR Reviewed History: Yes Social History Home: mobile home Current Living Status: Alone Entry Into Home: Stairs With Railing PT Steps Into Home: 5 Prior Prior Level of Function SCALE: Activities may be completed with or without assistive devices. 0-Oxlcxozyqi-ehacdsx completes the activity by him/herself with no assistance from a helper. 5-Set-up or Clean-up Assistance-helper sets up or cleans up; patient completes activity. [place] assists only prior to or following the activity. 4-Supervision or Touching Assistance-helper provides verbal cues and/or touching/steadying and/or contact guard assistance as patient completes ac tivity. Assistance may be provided throughout the activity or intermittently. 3-Partial/Moderate Assistance-helper does LESS THAN HALF the effort. [place] lifts, holds or supports trunk or limbs, but provides less than half the effort. 2-Substantial/Maximal Assistance-helper does MORE THAN HALF the effort. [place] lifts or holds trunk or limbs and provides more than half the effort. 4-Dfluzjtuf-sqimzn does ALL the effort. Patient does none of the effort to complete the activity. Or, the assistance of 2 or more helpers is required for the patient to complete the activity. If activity was not attempted, code reason: 7-Patient Refused. 9-Not Applicable-not attempted and the patient did not perform the activity before the current illness, exacerbation or injury. 10-Not Attempted due to Environmental Limitations-(lack of equipment, weather restraints, etc.). 88-Not Attempted due to Medical Conditions or Safety Concerns. Bed Mobility: 6 Transfers (B,C,W/C): 6 Gait: 6 Stairs: 6 Indoor Mobility (Ambulation): Independent Stairs: Independent PT Evaluation-Current Subjective Patient agrees to PT. Pain Numeric Pain Scale: 8 Location: Left Location Body Site: Hip Pain Description: Acute Objective Patient Orientation: Normal For Age Attachments: IV ROM/Strength ROM Lower Extremities left THR/right LE WFL Strength Lower Extremities left LE 3-/5 grossly/right LE 4/5 grossly Integumentary/Posture Integumentary refer to nursing notes Bowel Incontinence: No Bladder Incontinence: No Posture WFL Neuromuscular (Tone, Coordination, Reflexes) grossly intact Sensory Vision: Functional Hearing: Functional Transfers Sit to Lying (QC): 3 Lying to Sitting/Side of Bed(Q: 3 Sit to Stand (QC): 3 Gait Mode of Locomotion: Walk Anticipated Mode of Locomotion: Walk Walk 10 feet (QC): 3 Walk 50 ft with 2 Turns(QC): 88 Distance: 25' Gait Assistive Device: FWW Comments/Gait Description slow, antalgic/VC's to place left foot flat on floor Balance Sitting Static: Normal Sitting Dynamic: Normal Standing Static: Fair Standing Dynamic: Fair Assessment/Needs Patient will benefit from skilled PT to address functional strength and mobility to improve current LOF to safely return to home at maximum LOF. Patient currently requires min to mod assist with all mobility. Education on THR precautions issued. Rehab Potential: Fair PT Mcc Goals Mcc Goals PT Mcc Goals Time Frame: August 01, 2022 Roll Left & Right (QC): 6 Sit to Lying (QC): 6 Lying-Sitting on Side/Bed(QC): 6 Sit to Stand (QC): 6 Chair/Uzf-xj-Vtvvw Xfer(QC): 6 Toilet Transfer (QC): 6 Walk 10 feet (QC): 4 Walk 50ft with 2 Turns (QC): 4 Walk 150 ft (QC): 4 1 Step (curb) (QC): 4 4 Steps (QC): 4 PT Plan Problem List Problem List: Activity Tolerance, Functional Strength, Safety, Balance, Gait, Transfer, Bed Mobility Treatment/Plan Treatment Plan: Continue Plan of Care Treatment Plan: Bed Mobility, Education, Functional Activity Yessica, Functional Strength, Gait, Safety, Therapeutic Exercise, Transfers Treatment Duration: August 01, 2022 Frequency: 11 times per week Estimated Hrs Per Day: .5 hour per day Patient and/or Family Agrees t: Yes Safety Risks/Education Patient Education: Gait Training Time Time In: 1305 Time Out: 1320 DATE: July 13, 2022 Total Billed Treatment Time: 15 Total Billed Treatment 1 visit EVMod 15 min LANDON RENEE PT July 13, 2022 13:55
[2022-07-13] MEDS: ceFAZolin INJECTION 1,000 MG in NS (IVPB) 50 ML IV SCH ×2 (16:19→23:14)
[2022-07-13] MEDS: ASPIRIN E.C. 81 MG (ECOTRIN) TAB PO SCH (18:14)
[2022-07-13] MEDS: GABAPENTIN 300 MG (NEURONTIN) CAP PO SCH (20:06)
[2022-07-13] MEDS: CELECOXIB 100 MG (CeleBREX) CAP PO SCH (20:06)
[2022-07-13] MEDS: DOCUSATE SODIUM 100 MG (COLACE) CAP PO SCH (20:09)
[2022-07-14 03:11] VITALS: BP 115/63
[2022-07-14] MEDS: NS IV 1000 ML 1,000 ML IV SCH ×2 (04:43→22:18)
[2022-07-14] MEDS: MULTIVIT W/MINERALS TAB (THERAGRAN M) PO SCH (05:43)
[2022-07-14] MEDS: CELECOXIB 100 MG (CeleBREX) CAP PO SCH ×2 (08:35→20:18)
[2022-07-14] MEDS: GABAPENTIN 300 MG (NEURONTIN) CAP PO SCH ×2 (08:35→20:18)
[2022-07-14] MEDS: lisINopril 20 MG (PRINIVIL) TABLET PO SCH (08:35)
[2022-07-14] MEDS: meTOprolol SUCCINATE 100 MG (TOPROL XL) TAB PO SCH (08:35)
[2022-07-14] MEDS: ASPIRIN E.C. 81 MG (ECOTRIN) TAB PO SCH ×2 (08:35→18:04)
[2022-07-14] MEDS: DOCUSATE SODIUM 100 MG (COLACE) CAP PO SCH ×2 (08:35→20:18)
--- NOTE | 2022-07-14 11:41 | Progress Note ---
NADIYA MCDOWELL 07/14/22 1141: Subjective Time Seen by a Provider: 10:30 Subjective/Events-last exam Pt doing well this am s/p left hip replacement. Pt ambulating well albeit with some pain in left hip. Good UOP, denies BM or flatus. Denies n/v/f/c, and is eating and drinking well. Pt encouraged to use incentive spirometer. Objective Exam Last Set of Vital Signs Vital Signs Date Time Temp Pulse Resp B/P (MAP) Pulse Ox O2 Delivery O2 Flow Rate FiO2 07/14/22 03:11 37.3 64 18 115/63 (80) 95 Room Air 07/13/22 10:20 1.00 Capillary Refill : I&O Intake and Output 07/14/22 00:00 Intake Total 2510 ml Output Total 650 ml Balance 1860 ml Intake Oral 1360 ml IV Total 1150 ml Output Urine Total 650 ml General: Alert, Oriented X3, Cooperative, No Acute Distress HEENT: Atraumatic, PERRLA Neck: Supple, No JVD, No Thyromegaly Lungs: Clear to Auscultation, Normal Air Movement Heart: Regular Rate, Normal S1, Normal S2, No Murmurs Abdomen: Normal Bowel Sounds, Soft, No Tenderness, No Hepatosplenomegaly, No Masses Extremities: No Clubbing, No Cyanosis, No Edema, Normal Pulses, No Tenderness/Swelling Skin: No Rashes, No Breakdown, No Significant Lesion Assessment/Plan Assessment/Plan Assess & Plan/Chief Complaint Left Hip Replacement - ctm pain control - cont working with PT/OT HTN HLD - resuming home meds, ctm labs GABY GOMEZ DO 07/14/22 1602: Subjective Date Seen by a Provider: July 14, 2022 Assessment/Plan Assessment/Plan Assess & Plan/Chief Complaint Hold [facility] due to low BP Supervisory-Addendum Brief Verification & Attestation Participated in pt care: history, MDM, physical Personally performed: exam, history, MDM, supervision of care Care discussed with: Medical Student Procedures: n/a Results interpretation: Verified all documentation Verification and Attestation of Medical Student E/M Service A medical student performed and documented this service in my presence. I reviewed and verified all information documented by the medical student and made modifications to such information, when appropriate. I personally performed the physical exam and medical decision making. Gaby Gomez, July 14, 2022,16:02 NADIYA MCDOWELL July 14, 2022 11:41 GABY GOMEZ DO July 14, 2022 16:02
--- NOTE | 2022-07-14 13:55 | Anesthesia-General Post-Op ---
General Patient Condition Mental Status/LOC: Same as Preop Cardiovascular: Satisfactory Nausea/Vomiting: Absent Respiratory: Satisfactory Pain: Controlled Complications: Absent Post Op Complications Complications None Follow Up Care/Instructions Patient Instructions None needed. Anesthesia/Patient Condition Patient Condition Patient is doing well, no complaints, stable vital signs, no apparent adverse anesthesia problems. No complications reported per nursing. RICKIE BLAKE CRNA July 14, 2022 13:55
[2022-07-14 15:35] LABS: BASOPHILS % (AUTO) 0 % (0-10); EOSINOPHILS % (AUTO) 0 % (0-10); HEMATOCRIT 40 % (40-54); HEMOGLOBIN 12.7 g/dL (13.3-17.7); LYMPHOCYTES # (AUTO) 1.4 10^3/uL (1.0-4.0); LYMPHOCYTES % (AUTO) 16 % (12-44); MEAN CORPUSCULAR HEMOGLOBIN 30 pg (25-34); MEAN CORPUSCULAR HGB CONC 32 g/dL (32-36); MEAN CORPUSCULAR VOLUME 93 fL (80-99); MEAN PLATELET VOLUME 10.9 fL (9.0-12.2); MONOCYTES % (AUTO) 11 % (0-12); NEUTROPHILS # (AUTO) 6.5 10^3/uL (1.8-7.8); NEUTROPHILS % (AUTO) 73 % (42-75); PLATELET COUNT 192 10^3/uL (130-400)
[2022-07-14 15:38] VITALS: BP 105/54
--- NOTE | 2022-07-14 16:03 | Progress Note - Ortho ---
Progress Note Subjective Date of Exam 07/14/22 Chief Complaint POD #1 L DAPHNIE HPI/Events since last exam doing well, started therapy, making progress Review of Systems - Allergies: Coded Allergies: No Known Drug Allergies (Unverified , 07/07/22) Home Meds Active Scripts Lisinopril (Lisinopril) 20 Mg Tablet, 40 MG PO DAILY, #30 TAB 3 Refills Prov:BEBO JEFFREY SHUTTLE HAND 01/07/22 Amlodipine Besylate (Norvasc) 10 Mg Tablet, 10 MG PO DAILY, #30 TAB 3 Refills Prov:BEBO JEFFREY SHUTTLE HAND 01/07/22 Metoprolol Succinate (Metoprolol Succinate) 100 Mg Tab.er.24h, 100 MG PO DAILY, #30 TAB 3 Refills Prov:BEBO JEFFREY SHUTTLE HAND 01/07/22 Reported Medications Cholecalciferol (Vitamin D3) (Thera-D) 50 Mcg (2000 Unit) Tablet, 50 MCG PO DAILY, TAB 07/07/22 Simvastatin (Simvastatin) 80 Mg Tablet, 40 MG PO HS, TAB TAKES OF AN 80MG LAST FILLED 08-19-2021 #45/90 DAY SUPPLY 01/07/22 Gabapentin (Neurontin) 300 Mg Capsule, 900 MG PO BID, CAP TAKES 3 (300MG) TABS LAST FILLED 08-19-2021 #540/90 DAY SUPPLY 01/07/22 Discontinued Reported Medications Etodolac (Etodolac) 500 Mg Tablet, 500 MG PO BID, TAB 01/07/22 Objective Exam L Hip: Dressing C/D/I, +DF of ankle, no s/s of DVT Vital Signs Vital Signs Date Time Temp Pulse Resp B/P (MAP) Pulse Ox O2 Delivery O2 Flow Rate FiO2 07/14/22 03:11 37.3 64 18 115/63 (80) 95 Room Air 07/13/22 23:17 37.7 67 18 121/60 (80) 96 Room Air 07/13/22 23:16 37.7 67 18 121/60 (80) 96 Room Air 07/13/22 20:05 Room Air 07/13/22 19:30 37.4 60 18 132/76 (94) 96 Room Air 07/13/22 16:23 36.5 68 18 164/84 (110) 94 Room Air I & O 07/14/22 07:00 Intake Total 3860 ml Output Total 1525 ml Balance 2335 ml Lab Results Laboratory Tests 07/14/22 06:00: White Blood Count 9.0, Red Blood Count 4.28L, Hemoglobin 12.7L, Hematocrit 40, Mean Corpuscular Volume 93, Mean Corpuscular Hemoglobin 30, Mean Corpuscular Hemoglobin Concent 32, Red Cell Distribution Width 12.2, Platelet Count 192, Mean Platelet Volume 10.9, Immature Granulocyte % (Auto) 0, Neutrophils (%) (Auto) 73, Lymphocytes (%) (Auto) 16, Monocytes (%) (Auto) 11, Eosinophils (%) (Auto) 0, Basophils (%) (Auto) 0, Neutrophils # (Auto) 6.5, Lymphocytes # (Auto) 1.4, Monocytes # (Auto) 1.0, Eosinophils # (Auto) 0.0, Basophils # (Auto) 0.0, Immature Granulocyte # (Auto) 0.0 Assessment and Plan Assessment 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
[2022-07-14 18:48] LABS: ALBUMIN 3.5 GM/DL (3.2-4.5); BILIRUBIN,TOTAL 0.7 MG/DL (0.1-1.0); CALCIUM 8.3 MG/DL (8.5-10.1); CREATININE SERUM 1.03 MG/DL (0.60-1.30); POTASSIUM 3.7 MMOL/L (3.6-5.0); TOTAL PROTEIN 6.2 GM/DL (6.4-8.2)
[2022-07-14 19:38] VITALS: BP 78/44
[2022-07-14 20:22] VITALS: BP 86/48
[2022-07-14 21:55] VITALS: BP 73/42
[2022-07-14 23:23] VITALS: BP 84/47
[2022-07-15] VITALS (9 sets, daily range): BP systolic 86–137; BP diastolic 46–63
[2022-07-15] MEDS: MULTIVIT W/MINERALS TAB (THERAGRAN M) PO SCH (05:05)
[2022-07-15 05:52] LABS: BASOPHILS % (AUTO) 0 % (0-10); EOSINOPHILS # (AUTO) 0.1 10^3/uL (0.0-0.3); EOSINOPHILS % (AUTO) 1 % (0-10); HEMATOCRIT 34 % (40-54); HEMOGLOBIN 10.7 g/dL (13.3-17.7); LYMPHOCYTES # (AUTO) 1.9 10^3/uL (1.0-4.0); LYMPHOCYTES % (AUTO) 15 % (12-44); MEAN CORPUSCULAR HEMOGLOBIN 30 pg (25-34); MEAN CORPUSCULAR HGB CONC 32 g/dL (32-36); MEAN CORPUSCULAR VOLUME 94 fL (80-99); MEAN PLATELET VOLUME 11.1 fL (9.0-12.2); MONOCYTES # (AUTO) 1.5 10^3/uL (0.0-1.0); MONOCYTES % (AUTO) 11 % (0-12); NEUTROPHILS # (AUTO) 9.2 10^3/uL (1.8-7.8); NEUTROPHILS % (AUTO) 72 % (42-75); PLATELET COUNT 146 10^3/uL (130-400); WHITE BLOOD COUNT 12.8 10^3/uL (4.3-11.0)
[2022-07-15 06:10] LABS: ALBUMIN 2.9 GM/DL (3.2-4.5); CHLORIDE 108 MMOL/L (98-107); POTASSIUM 4.5 MMOL/L (3.6-5.0); SODIUM 137 MMOL/L (135-145)
[2022-07-15 06:11] LABS: CALCIUM 7.9 MG/DL (8.5-10.1)
[2022-07-15 06:12] LABS: GLUCOSE 96 MG/DL (70-105); TOTAL PROTEIN 5.3 GM/DL (6.4-8.2)
[2022-07-15 06:13] LABS: CARBON DIOXIDE 19 MMOL/L (21-32)
[2022-07-15 06:14] LABS: BILIRUBIN,TOTAL 0.7 MG/DL (0.1-1.0)
[2022-07-15 06:16] LABS: ALKALINE PHOSPHATASE 64 U/L (40-136); CREATININE SERUM 1.84 MG/DL (0.60-1.30); GFR ESTIMATED 37
[2022-07-15 06:17] LABS: BUN/CREATININE RATIO 11
[2022-07-15 06:19] LABS: ALANINE AMINOTRANSFERASE < 6 U/L (0-55)
[2022-07-15] MEDS: NS IV 1000 ML 1,000 ML IV SCH ×3 (06:30→16:28)
[2022-07-15] MEDS: ASPIRIN E.C. 81 MG (ECOTRIN) TAB PO SCH ×2 (09:20→16:27)
[2022-07-15] MEDS: CELECOXIB 100 MG (CeleBREX) CAP PO SCH ×2 (09:20→19:49)
[2022-07-15] MEDS: GABAPENTIN 300 MG (NEURONTIN) CAP PO SCH ×2 (09:20→19:50)
[2022-07-15] MEDS: lisINopril 20 MG (PRINIVIL) TABLET PO SCH (09:20)
[2022-07-15] MEDS: DOCUSATE SODIUM 100 MG (COLACE) CAP PO SCH ×2 (09:20→19:50)
--- NOTE | 2022-07-15 11:29 | Progress Note ---
NADIYA MCDOWELL 07/15/22 1129: Subjective Date Seen by a Provider: July 15, 2022 Time Seen by a Provider: 11:15 Subjective/Events-last exam Pt has been having low BP's over last 24hrs, Norvasc held, IV replaced and pt given IVF; BP's improved and currently stable. Pt otherwise doing well, working with PT, using incentive spirometer, pain well controlled, no nausea or vomiting, eating and drinking well. Good UOP, no BM but flatus present, will start bowel regimen. Objective Exam Last Set of Vital Signs Vital Signs Date Time Temp Pulse Resp B/P (MAP) Pulse Ox O2 Delivery O2 Flow Rate FiO2 07/15/22 08:00 Room Air 07/15/22 05:11 36.3 59 16 108/58 (75) 97 07/13/22 10:20 1.00 Capillary Refill : I&O Intake and Output 07/15/22 00:00 Intake Total 2600 ml Output Total 1125 ml Balance 1475 ml Intake Oral 600 ml IV Total 2000 ml Output Urine Total 1125 ml General: Alert, Oriented X3, Cooperative, No Acute Distress HEENT: Atraumatic, PERRLA Neck: Supple, No JVD, No Thyromegaly Lungs: Clear to Auscultation, Normal Air Movement Heart: Regular Rate, Normal S1, Normal S2, No Murmurs Abdomen: Normal Bowel Sounds, Soft, No Tenderness, No Hepatosplenomegaly, No Masses Extremities: No Clubbing, No Cyanosis, No Edema, Normal Pulses, No Tenderness/Swelling Skin: No Rashes, No Breakdown, No Significant Lesion Results Lab Laboratory Tests 07/15/22 05:36: White Blood Count 12.8H, Red Blood Count 3.57L, Hemoglobin 10.7L, Hematocrit 34L , Mean Corpuscular Volume 94, Mean Corpuscular Hemoglobin 30, Mean Corpuscular Hemoglobin Concent 32, Red Cell Distribution Width 12.0, Platelet Count 146, Mean Platelet Volume 11.1, Immature Granulocyte % (Auto) 1, Neutrophils (%) (Auto) 72, Lymphocytes (%) (Auto) 15, Monocytes (%) (Auto) 11, Eosinophils (%) (Auto) 1, Basophils (%) (Auto) 0, Neutrophils # (Auto) 9.2H, Lymphocytes # (Auto) 1.9, Monocytes # (Auto) 1.5H, Eosinophils # (Auto) 0.1, Basophils # (Auto) 0.0, Immature Granulocyte # (Auto) 0.1, Sodium Level 137, Potassium Level 4.5, Chloride Level 108H, Carbon Dioxide Level 19L, Anion Gap 10, Blood Urea Nitrogen 20H, Creatinine 1.84H, Estimat Glomerular Filtration Rate 37, BUN/Creatinine Ratio 11, Glucose Level 96, Calcium Level 7.9L, Corrected Calcium 8.8, Total Bilirubin 0.7, Aspartate Amino Transf (AST/SGOT) 26, Alanine Aminotransferase (ALT/SGPT) < 6, Alkaline Phosphatase 64, Total Protein 5.3L, Albumin 2.9L Microbiology 07/13/22 MRSA Screen - Final, Complete MRSA not isolated Assessment/Plan Assessment/Plan Assess & Plan/Chief Complaint Left Hip Replacement - ctm pain control - cont working with PT/OT Hypotensive episodes - BP meds held - IV replaced and given IVF - stable now, CTM KATIE - Cr 1.84 - likely pre-renal with hypotensive episodes - giving IVF - CTM Constipation - start bowel regimen - flatus present, no ileus Chronic issues: HTN HLD - holding BP meds for low pressures GABY GOMEZ DO 07/15/222043: Supervisory-Addendum Brief Verification & Attestation Participated in pt care: history, MDM, physical Personally performed: exam, history, MDM, supervision of care Care discussed with: Medical Student Procedures: n/a Results interpretation: Verified all documentation Verification and Attestation of Medical Student E/M Service A medical student performed and documented this service in my presence. I reviewed and verified all information documented by the medical student and made modifications to such information, when appropriate. I personally performed the physical exam and medical decision making. Gaby Gomez July 15, 2022,20:44 NADIYA MCDOWELL July 15, 2022 11:29 GABY GOMEZ DO July 15, 2022 20:44
[2022-07-15] MEDS: meTOprolol SUCCINATE 100 MG (TOPROL XL) TAB PO SCH (11:36)
--- NOTE | 2022-07-15 11:47 | Physical Therapy Daily Note ---
PT Daily Note-Current Subjective Patient sitting in chair upon PT arrival, agreeable to treatment. Patient rates pain at 0/10 currently. Pain Section J - Health Conditions 1. Rarely or not at all 2. Occasionally 3. Frequently 4. Almost constantly 8. Unable to answer Pain Effect on Sleep: 1 Pain Interference with Therapy: 1 Pain Interference w/Day-to-Day: 1 Mental Status Patient Orientation: Person, Place, Time, Situation Transfers SCALE: Activities may be completed with or without assistive devices. 1-Zesomjbvqj-xitbkkt completes the activity by him/herself with no assistance from a helper. 5-Set-up or Clean-up Assistance-helper sets up or cleans up; patient completes activity. [place] assists only prior to or following the activity. 4-Supervision or Touching Assistance-helper provides verbal cues and/or touching/steadying and/or contact guard assistance as patient completes activity. Assistance may be provided throughout the activity or intermittently. 3-Partial/Moderate Assistance-helper does LESS THAN HALF the effort. [place] lifts, holds or supports trunk or limbs, but provides less than half the effort. 2-Substantial/Maximal Assistance-helper does MORE THAN HALF the effort. [place] lifts or holds trunk or limbs and provides more than half the effort. 1-Bwmseomuf-vebcac does ALL the effort. Patient does none of the effort to complete the activity. Or, the assistance of 2 or more helpers is required for the patient to complete the activity. If activity was not attempted, code reason: 7-Patient Refused. 9-Not Applicable-not attempted and the patient did not perform the activity before the current illness, exacerbation or injury. 10-Not Attempted due to Environmental Limitations-(lack of equipment, weather restraints, etc.). 88-Not Attempted due to Medical Conditions or Safety Concerns. Roll Left & Right (QC): 4 Sit to Lying (QC): 4 Lying to Sitting/Side of Bed(Q: 4 Sit to Stand (QC): 4 Chair/Xwm-eu-Gfcft Xfer(QC): 4 Weight Bearing Right Lower Extremity: Right Full Weight Bearing Left Lower Extremity: Left Weight Bearing/Tolerated Gait Training Does the Patient Walk?: Yes Distance: 200 feet Walk 10 feet (QC): 4 Walk 50 ft with 2 Turns(QC): 4 Walk 150 ft (QC): 4 Gait Persons Needed: 1 Gait Assistive Device: FWW Exercises Supine Ex: Ankle pumps, Quad Set, Glut sets Supine Reps: 20 Seated Therapy Exercises: Long arc quads, Hamstring Curls, Hip abd/add Seated Reps: 20 Assessment Current Status: Fair Progress Patient tolerated treatment well. Performs all observed mobility with SBA. Lavelle jacobsen performs LE therapeutic exercise as listed above. Patient ambulates 200 feet with FWW, with SBA and verbal cues for safety and conservation of energy. Patient in chair post treatment with all needs met, nursing notified, call light in hand. PT Treasurer Goals Treasurer Goals PT [facility] Goals Time Frame: August 01, 2022 Roll Left & Right (QC): 6 Sit to Lying (QC): 6 Lying-Sitting on Side/Bed(QC): 6 Sit to Stand (QC): 6 Chair/Otl-of-Kbuor Xfer(QC): 6 Toilet Transfer (QC): 6 Walk 10 feet (QC): 4 Walk 50ft with 2 Turns (QC): 4 Walk 150 ft (QC): 4 1 Step (curb) (QC): 4 4 Steps (QC): 4 PT Plan Treatment/Plan Treatment Plan: Continue Plan of Care Treatment Plan: Bed Mobility, Education, Functional Activity Yessica, Functional Strength, Gait, Safety, Therapeutic Exercise, Transfers Treatment Duration: August 01, 2022 Frequency: 11 times per week Estimated Hrs Per Day: .5 hour per day Patient and/or Family Agrees t: Yes Safety Risks/Education Patient Education: Gait Training, Transfer Techniques Teaching Recipient: Patient Teaching Methods: Demonstration, Discussion Response to Teaching: Verbalize Understanding, Return Demonstration Time Time In: 1021 Time Out: 1045 DATE: July 15, 2022 Total Billed Treatment Time: 23 Total Billed Treatment Visit, Gait, Ex JUAN CHAVEZ PT July 15, 2022 11:47
--- NOTE | 2022-07-15 13:08 | Occupational Ther Daily Note ---
OT Current Status-Daily Note Subjective Demonstrates poor recall of DAPHNIE precautions, verbalized however does not perform w/o redirection, agreeable to finish breakfast in recliner and learn dressing interventions w/ ADs Mental Status/Objective Patient Orientation: Person, Place, Situation Attachments: IV, Other-See Comments (abductor wedge) ADL-Treatment Therapy Code Descriptions/Definitions Functional [place] Measure: 0=Not Assessed/NA 4=Minimal Assistance 1=Total Assistance 5=Supervision or Setup 2=Maximal Assistance 6=Modified [place] 3=Moderate Assistance 7=Complete IndependenceSCALE: Activities may be completed with or without assistive devices. 6-Hulbqwvubt-nsvykka completes the activity by him/herself with no assistance from a helper. 5-Set-up or Clean-up Assistance-helper sets up or cleans up; patient completes activity. [place] assists only prior to or following the activity. 4-Supervision or Touching Assistance-helper provides verbal cues and/or touching/steadying and/or contact guard assistance as patient completes activity. Assistance may be provided throughout the activity or intermittently. 3-Partial/Moderate Assistance-helper does LESS THAN HALF the effort. [place] lifts, holds or supports trunk or limbs, but provides less than half the effort. 2-Substantial/Maximal Assistance-helper does MORE THAN HALF the effort. [place] lifts or holds trunk or limbs and provides more than half the effort. 7-Fmcknjgie-dfpzya does ALL the effort. Patient does none of the effort to complete the activity. Or, the assistance of 2 or more helpers is required for the patient to complete the activity. If activity was not attempted, code reason: 7-Patient Refused. 9-Not Applicable-not attempted and the patient did not perform the activity before the current illness, exacerbation or injury. 10-Not Attempted due to Environmental Limitations-(lack of equipment, weather restraints, etc.). 88-Not Attempted due to Medical Conditions or Safety Concerns. Eating (QC): 6 Oral Hygiene (QC): 5 Shower/Bathe Self (QC): 7 Upper Body Dressing (QC): 4 (IV) Lower Body Dressing (QC): 3 On/Off Footwear: 4 (w/ ADs and 25% verbal cues) Toileting Hygiene (QC): 4 Toilet Transfer (QC): 4 DAPHNIE precautions written on dry white board Education OT Patient Education: Correct positioning, Exercise program, Modified ADL techniques, Progress toward Goal/Update tx plan, Purpose of tx/functional activities, Reviewed precautions, Rehab process, Safety issues, Transfer techniques, Use of adapted equipment Teaching Recipient: Patient Teaching Methods: Demonstration, Handout, Discussion Response to Teaching: Verbalize Understanding, Reinforcement Needed OT Senior Health Educator Goals Senior Health Educator Goals Eating (QC): 6 Oral Hygiene (QC): 6 Toileting Hygiene (QC): 6 Shower/Bathe Self (QC): 6 Upper Body Dressing (QC): 6 Lower Body Dressing (QC): 6 On/Off Footwear (QC): 6 1=Demonstrate adherence to instructed precautions during ADL tasks. 2=Patient will verbalize/demonstrate understanding of assistive devices/modifications for ADL. 3=Patient will improve strength/tolerance for activity to enable patient to perform ADL's. OT Education/Plan Problem List/Assessment Assessment: Decreased Activ Tolerance, Decreased Safety Aware, Decreased UE Strength, Impaired Cognition, Impaired Funct Balance, Impaired Self-Care Skills Discharge Recommendations Plan/Recommendations: Continue POC Treatment Plan/Plan of Care Patient would benefit from OT for education, treatment and training to promote independence in ADL's, mobility, safety and/or upper extremity function for ADL's. Plan of Care: ADL Retraining, Functional Mobility, Group Exercise/Act as Ind, UE Funct Exercise/Act Treatment Duration: July 18, 2022 Frequency: 3 times per week (3-5 times per week) Estimated Hrs Per Day: .25 hour per day Rehab Potential: Good Time Start Time: 09:20 Stop Time: 09:44 DATE: July 15, 2022 Total Time Billed (hr/min): 24 Billed Treatment Time ADL 24 min EDUARDO HERNÁNDEZ OT July 15, 2022 13:08
--- NOTE | 2022-07-15 15:46 | Progress Note - Ortho ---
Progress Note Subjective Date of Exam 07/15/22 Chief Complaint POD #2 L DAPHNIE HPI/Events since last exam doing well, making progress with therapy Review of Systems - Allergies: Coded Allergies: No Known Drug Allergies (Unverified , 07/07/22) Home Meds Active Scripts Lisinopril (Lisinopril) 20 Mg Tablet, 40 MG PO DAILY, #30 TAB 3 Refills Prov:BEBO JEFFREY [employer]INE EQUIPMENT DESIGN ENGINEER 01/07/22 Amlodipine Besylate (Norvasc) 10 Mg Tablet, 10 MG PO DAILY, #30 TAB 3 Refills Prov:BEBO JEFFREY [employer] EQUIPMENT DESIGN ENGINEER 01/07/22 Metoprolol Succinate (Metoprolol Succinate) 100 Mg Tab.er.24h, 100 MG PO DAILY, #30 TAB 3 Refills Prov:BEBO JEFFREY [employer]INE EQUIPMENT DESIGN ENGINEER 01/07/22 Reported Medications Cholecalciferol (Vitamin D3) (Thera-D) 50 Mcg (2000 Unit) Tablet, 50 MCG PO DAILY, TAB 07/07/22 Simvastatin (Simvastatin) 80 Mg Tablet, 40 MG PO HS, TAB TAKES OF AN 80MG LAST FILLED 08-19-2021 #45/90 DAY SUPPLY 01/07/22 Gabapentin (Neurontin) 300 Mg Capsule, 900 MG PO BID, CAP TAKES 3 (300MG) TABS LAST FILLED 08-19-2021 #540/90 DAY SUPPLY 01/07/22 Objective Exam L Hip: Incision C/D/I, +DF of ankle, no s/s of DVT Vital Signs Vital Signs Date Time Temp Pulse Resp B/P (MAP) Pulse Ox O2 Delivery O2 Flow Rate FiO2 07/15/22 11:51 37.3 63 19 102/58 (73) 96 Room Air 07/15/22 08:00 Room Air 07/15/22 08:00 36.6 58 19 89/53 (65) 94 Room Air 07/15/22 05:11 36.3 59 16 108/58 (75) 97 Room Air 07/15/22 03:43 36.2 53 16 93/50 (64) 97 Room Air 07/15/22 01:19 36.2 51 16 94/46 (62) 96 Room Air 07/15/22 00:25 36.3 50 18 86/47 (60) 94 Room Air 07/14/22 23:23 36.3 50 18 84/47 (59) 94 Room Air 07/14/22 21:55 51 73/42 (52) Room Air 07/14/22 20:22 50 86/48 (61) Room Air 07/14/22 20:20 Room Air 07/14/22 19:38 37.5 53 20 78/44 (55) 94 Room Air I & O 07/15/22 07:00 Intake Total 2400 ml Output Total 600 ml Balance 1800 ml Lab Results Laboratory Tests 07/15/22 05:36: White Blood Count 12.8H, Red Blood Count 3.57L, Hemoglobin 10.7L, Hematocrit 34L , Mean Corpuscular Volume 94, Mean Corpuscular Hemoglobin 30, Mean Corpuscular Hemoglobin Concent 32, Red Cell Distribution Width 12.0, Platelet Count 146, Mean Platelet Volume 11.1, Immature Granulocyte % (Auto) 1, Neutrophils (%) (Auto) 72, Lymphocytes (%) (Auto) 15, Monocytes (%) (Auto) 11, Eosinophils (%) (Auto) 1, Basophils (%) (Auto) 0, Neutrophils # (Auto) 9.2H, Lymphocytes # (Auto) 1.9, Monocytes # (Auto) 1.5H, Eosinophils # (Auto) 0.1, Basophils # (Auto) 0.0, Immature Granulocyte # (Auto) 0.1, Sodium Level 137, Potassium Level 4.5, Chloride Level 108H, Carbon Dioxide Level 19L, Anion Gap 10, Blood Urea Nitrogen 20H, Creatinine 1.84H, Estimat Glomerular Filtration Rate 37, BUN/Creatinine Ratio 11, Glucose Level 96, Calcium Level 7.9L, Corrected Calcium 8.8, Total Bilirubin 0.7, Aspartate Amino Transf (AST/SGOT) 26, Alanine Aminotransferase (ALT/SGPT) < 6, Alkaline Phosphatase 64, Total Protein 5.3L, Albumin 2.9L Microbiology 07/13/22 MRSA Screen - Final, Complete MRSA not isolated Assessment and Plan Assessment L Hip Primary OA s/p DAPHNIE Problem List L Hip Primary OA s/p DAPHNIE Plan PT/OT DVT Prophylaxis Did not qualify for rehab, will see if home health is an option Final Diagonsis L Hip Primary OA s/p DAPHNIE Level of the visit: Level 3 (global) TESFAYE LAMB MD July 15, 2022 15:46
--- NOTE | 2022-07-15 15:55 | Physical Therapy Daily Note ---
PT Daily Note-Current Subjective Patient asleep in the chair upon PT arrival, agreeable to treatment. Patient rates pain at 3/10 currently. Pain Section J - Health Conditions 1. Rarely or not at all 2. Occasionally 3. Frequently 4. Almost constantly 8. Unable to answer Pain Effect on Sleep: 1 Pain Interference with Therapy: 1 Pain Interference w/Day-to-Day: 1 Mental Status Patient Orientation: Person, Place, Time, Situation Transfers SCALE: Activities may be completed with or without assistive devices. 6-Dkzbzfiteb-lyuuhdd completes the activity by him/herself with no assistance from a helper. 5-Set-up or Clean-up Assistance-helper sets up or cleans up; patient completes activity. [place] assists only prior to or following the activity. 4-Supervision or Touching Assistance-helper provides verbal cues and/or touching/steadying and/or contact guard assistance as patient completes activity. Assistance may be provided throughout the activity or intermittently. 3-Partial/Moderate Assistance-helper does LESS THAN HALF the effort. [place] lifts, holds or supports trunk or limbs, but provides less than half the effort. 2-Substantial/Maximal Assistance-helper does MORE THAN HALF the effort. [place] lifts or holds trunk or limbs and provides more than half the effort. 2-Xvklzydcj-cocxsy does ALL the effort. Patient does none of the effort to complete the activity. Or, the assistance of 2 or more helpers is required for the patient to complete the activity. If activity was not attempted, code reason: 7-Patient Refused. 9-Not Applicable-not attempted and the patient did not perform the activity before the current illness, exacerbation or injury. 10-Not Attempted due to Environmental Limitations-(lack of equipment, weather restraints, etc.). 88-Not Attempted due to Medical Conditions or Safety Concerns. Sit to Stand (QC): 4 Chair/Pwa-ff-Puzcc Xfer(QC): 4 Weight Bearing Right Lower Extremity: Right Full Weight Bearing Left Lower Extremity: Left Weight Bearing/Tolerated Gait Training Does the Patient Walk?: Yes Distance: 120 Walk 10 feet (QC): 4 Walk 50 ft with 2 Turns(QC): 4 Gait Assistive Device: FWW Assessment Patient tolerated treatment well. Performs all observed mobility with SBA. Patient ambulates 120 feet with FWW, with SBA and verbal cues for safety and conservation of energy. Patient in chair post treatment with all needs met, nursing notified, call light in hand. PT Skilled Nursing Goals Skilled Nursing Goals PT Groundskeeper Goals Time Frame: August 01, 2022 Roll Left & Right (QC): 6 Sit to Lying (QC): 6 Lying-Sitting on Side/Bed(QC): 6 Sit to Stand (QC): 6 Chair/Nkp-cz-Pjkbp Xfer(QC): 6 Toilet Transfer (QC): 6 Walk 10 feet (QC): 4 Walk 50ft with 2 Turns (QC): 4 Walk 150 ft (QC): 4 1 Step (curb) (QC): 4 4 Steps (QC): 4 PT Plan Treatment/Plan Treatment Plan: Continue Plan of Care Treatment Plan: Bed Mobility, Education, Functional Activity Yessica, Functional Strength, Gait, Safety, Therapeutic Exercise, Transfers Treatment Duration: August 01, 2022 Frequency: 11 times per week Estimated Hrs Per Day: .5 hour per day Patient and/or Family Agrees t: Yes Safety Risks/Education Patient Education: Gait Training, Transfer Techniques Teaching Recipient: Patient Teaching Methods: Demonstration, Discussion Response to Teaching: Verbalize Understanding, Return Demonstration Time Time In: 1503 Time Out: 1513 DATE: July 15, 2022 Total Billed Treatment Time: 10 Total Billed Treatment Visit, JUAN Adams PT July 15, 2022 15:55
[2022-07-16 03:12] VITALS: BP 96/52
[2022-07-16 05:10] LABS: BASOPHILS % (AUTO) 0 % (0-10); HEMOGLOBIN 9.9 g/dL (13.3-17.7); MEAN CORPUSCULAR VOLUME 93 fL (80-99); MONOCYTES % (AUTO) 10 % (0-12)
[2022-07-16 05:12] LABS: EOSINOPHILS # (AUTO) 0.1 10^3/uL (0.0-0.3); EOSINOPHILS % (AUTO) 1 % (0-10); HEMATOCRIT 31 % (40-54); LYMPHOCYTES # (AUTO) 1.3 10^3/uL (1.0-4.0); LYMPHOCYTES % (AUTO) 16 % (12-44); MEAN CORPUSCULAR HEMOGLOBIN 30 pg (25-34); MEAN CORPUSCULAR HGB CONC 33 g/dL (32-36); MEAN PLATELET VOLUME 11.6 fL (9.0-12.2); MONOCYTES # (AUTO) 0.8 10^3/uL (0.0-1.0); NEUTROPHILS # (AUTO) 6.1 10^3/uL (1.8-7.8); NEUTROPHILS % (AUTO) 73 % (42-75); PLATELET COUNT 130 10^3/uL (130-400); WHITE BLOOD COUNT 8.4 10^3/uL (4.3-11.0)
[2022-07-16] MEDS: MULTIVIT W/MINERALS TAB (THERAGRAN M) PO SCH (05:30)
[2022-07-16 05:50] LABS: ALBUMIN 2.7 GM/DL (3.2-4.5); POTASSIUM 4.1 MMOL/L (3.6-5.0)
[2022-07-16 05:51] LABS: CALCIUM 8.1 MG/DL (8.5-10.1)
[2022-07-16 05:52] LABS: TOTAL PROTEIN 5.3 GM/DL (6.4-8.2)
[2022-07-16 05:54] LABS: BILIRUBIN,TOTAL 0.5 MG/DL (0.1-1.0)
[2022-07-16 05:56] LABS: CREATININE SERUM 1.19 MG/DL (0.60-1.30)
[2022-07-16 07:51] VITALS: BP 159/69
[2022-07-16] MEDS: GABAPENTIN 300 MG (NEURONTIN) CAP PO SCH (08:21)
[2022-07-16] MEDS: ASPIRIN E.C. 81 MG (ECOTRIN) TAB PO SCH (08:21)
[2022-07-16] MEDS: DOCUSATE SODIUM 100 MG (COLACE) CAP PO SCH (08:21)
[2022-07-16] MEDS: meTOprolol SUCCINATE 100 MG (TOPROL XL) TAB PO SCH (08:21)
--- NOTE | 2022-07-16 11:20 | Physical Therapy Daily Note ---
PT Daily Note-Current Subjective Patient agrees to PT. Pain Section J - Health Conditions 1. Rarely or not at all 2. Occasionally 3. Frequently 4. Almost constantly 8. Unable to answer Pain Effect on Sleep: 1 Pain Interference with Therapy: 1 Pain Interference w/Day-to-Day: 1 Mental Status Patient Orientation: Normal For Age Transfers SCALE: Activities may be completed with or without assistive devices. 3-Uuouygkacx-bogumqf completes the activity by him/herself with no assistance from a helper. 5-Set-up or Clean-up Assistance-helper sets up or cleans up; patient completes activity. [place] assists only prior to or following the activity. 4-Supervision or Touching Assistance-helper provides verbal cues and/or touching/steadying and/or contact guard assistance as patient completes activity. Assistance may be provided throughout the activity or intermittently. 3-Partial/Moderate Assistance-helper does LESS THAN HALF the effort. [place] lifts, holds or supports trunk or limbs, but provides less than half the effort. 2-Substantial/Maximal Assistance-helper does MORE THAN HALF the effort. [place] lifts or holds trunk or limbs and provides more than half the effort. 0-Nkqmtnmwy-voevtd does ALL the effort. Patient does none of the effort to complete the activity. Or, the assistance of 2 or more helpers is required for the patient to complete the activity. If activity was not attempted, code reason: 7-Patient Refused. 9-Not Applicable-not attempted and the patient did not perform the activity before the current illness, exacerbation or injury. 10-Not Attempted due to Environmental Limitations-(lack of equipment, weather restraints, etc.). 88-Not Attempted due to Medical Conditions or Safety Concerns. Sit to Stand (QC): 4 Chair/Bfh-nx-Ezcja Xfer(QC): 4 Weight Bearing Right Lower Extremity: Right Full Weight Bearing Left Lower Extremity: Left Weight Bearing/Tolerated Gait Training Distance: 200' x 2 Walk 10 feet (QC): 4 Walk 50 ft with 2 Turns(QC): 4 Walk 150 ft (QC): 4 Gait Assistive Device: FWW VC's for gait sequence with heel toe mobility Stair Training Stair Training: Handrails/: 1 handrail #of Steps: 4 1 Step (curb) (QC): 4 4 Steps (QC): 4 Exercises Seated Therapy Exercises: Ankle pumps, Long arc quads Assessment Patient much improved on this date and performed all mobility SBA. Patient remains up in recliner with family present. PT Derrick Hand Goals Halfway Goals PT Derrick Hand Goals Time Frame: August 01, 2022 Roll Left & Right (QC): 6 Sit to Lying (QC): 6 Lying-Sitting on Side/Bed(QC): 6 Sit to Stand (QC): 6 Chair/Zov-an-Qllfo Xfer(QC): 6 Toilet Transfer (QC): 6 Walk 10 feet (QC): 4 Walk 50ft with 2 Turns (QC): 4 Walk 150 ft (QC): 4 1 Step (curb) (QC): 4 4 Steps (QC): 4 PT Plan Treatment/Plan Treatment Plan: Continue Plan of Care Treatment Plan: Bed Mobility, Education, Functional Activity Yessica, Functional Strength, Gait, Safety, Therapeutic Exercise, Transfers Treatment Duration: August 01, 2022 Frequency: 11 times per week Estimated Hrs Per Day: .5 hour per day Patient and/or Family Agrees t: Yes Time Time In: 811 Time Out: 822 DATE: July 16, 2022 Total Billed Treatment Time: 11 Total Billed Treatment 1 visit FA 11 min LANDON RENEE PT July 16, 2022 11:19
[2022-07-16 11:28] VITALS: BP 147/67
--- NOTE | 2022-07-16 11:33 | Progress Note - Ortho ---
Progress Note Subjective Date of Exam 07/16/22 Chief Complaint POD #3 L DAPHNIE HPI/Events since last exam making progress, current hang up is what next step will be after the hospital, concerned for going home because he lives alone Review of Systems - Allergies: Coded Allergies: No Known Drug Allergies (Unverified , 07/07/22) Home Meds Reported Medications Acetaminophen (Tylenol Extra Strength) 500 Mg Tablet, 500-1000 MG PO Q8H PRN for PAIN-MILD (1-4), TAB 07/16/22 Rosuvastatin Calcium (Rosuvastatin Calcium) 40 Mg Tablet, 20 MG PO HS, TAB TAKES OF A 40MG 07/16/22 Metoprolol Succinate (Metoprolol Succinate) 50 Mg Tab.er.24h, 25 MG PO DAILY, TAB TAKES OF A 50MG TAB 07/16/22 Lisinopril (Lisinopril) 40 Mg Tablet, 20 MG PO DAILY, TAB TAKES OF A 40MG TAB 07/16/22 Amlodipine Besylate (Amlodipine Besylate) 10 Mg Tablet, 10 MG PO DAILY, TAB 07/16/22 Cholecalciferol (Vitamin D3) (Thera-D) 50 Mcg (2000 Unit) Tablet, 50 MCG PO DAILY, TAB 07/07/22 Gabapentin (Neurontin) 300 Mg Capsule, 900 MG PO BID, CAP TAKES 3 (300MG) TABS 01/07/22 Discontinued Reported Medications Simvastatin (Simvastatin) 80 Mg Tablet, 40 MG PO HS, TAB TAKES OF AN 80MG LAST FILLED 08-19-2021 #45/90 DAY SUPPLY 01/07/22 Discontinued Scripts Lisinopril (Lisinopril) 20 Mg Tablet, 40 MG PO DAILY, #30 TAB 3 Refills Prov:BEBO JEFFREY COLORECT[employer] SURGEON 01/07/22 Amlodipine Besylate (Norvasc) 10 Mg Tablet, 10 MG PO DAILY, #30 TAB 3 Refills Prov:BEBO JEFFREY COLORECTAL SURGEON 01/07/22 Metoprolol Succinate (Metoprolol Succinate) 100 Mg Tab.er.24h, 100 MG PO DAILY, #30 TAB 3 Refills Prov:BEBO JEFFREY COLORECTAL SURGEON 01/07/22 Objective Exam L Hip: Dressing C/D/I, +DF of ankle, no s/s of DVT Vital Signs Vital Signs Date Time Temp Pulse Resp B/P (MAP) Pulse Ox O2 Delivery O2 Flow Rate FiO2 5/4/23 11:28 36.8 66 18 147/67 (93) 96 Room Air 07/16/22 08:00 Room Air 07/16/22 07:51 37.0 64 18 159/69 (99) 97 Room Air 07/16/22 03:12 36.6 52 20 96/52 (67) 93 Room Air 07/15/22 23:43 37.5 71 20 97/54 (68) 93 Room Air 07/15/22 20:00 37.8 76 16 104/53 (70) 92 Room Air 07/15/22 19:50 Room Air 07/15/22 18:03 38.0 07/15/22 17:20 38.8 07/15/22 16:10 38.2 80 18 137/63 (87) 96 Room Air 07/15/22 11:51 37.3 63 19 102/58 (73) 96 Room Air I & O 07/16/22 07:00 Intake Total 3050 ml Output Total 1950 ml Balance 1100 ml Lab Results Laboratory Tests 07/16/22 05:00: White Blood Count 8.4, Red Blood Count 3.28L, Hemoglobin 9.9L, Hematocrit 31L, Mean Corpuscular Volume 93, Mean Corpuscular Hemoglobin 30, Mean Corpuscular Hemoglobin Concent 33, Red Cell Distribution Width 12.2, Platelet Count 130, Mean Platelet Volume 11.6, Immature Granulocyte % (Auto) 0, Neutrophils (%) (Auto) 73, Lymphocytes (%) (Auto) 16, Monocytes (%) (Auto) 10, Eosinophils (%) (Auto) 1, Basophils (%) (Auto) 0, Neutrophils # (Auto) 6.1, Lymphocytes # (Auto) 1.3, Monocytes # (Auto) 0.8, Eosinophils # (Auto) 0.1, Basophils # (Auto) 0.0, Immature Granulocyte # (Auto) 0.0, Percent Immature Platelet Fraction 6.4, Sodium Level 141, Potassium Level 4.1, Chloride Level 113H, Carbon Dioxide Level 20L, Anion Gap 8, Blood Urea Nitrogen 16, Creatinine 1.19, Estimat Glomerular Filtration Rate 63, BUN/Creatinine Ratio 13, Glucose Level 97, Calcium Level 8 .1L, Corrected Calcium 9.1, Total Bilirubin 0.5, Aspartate Amino Transf (AST/SGOT) 31, Alanine Aminotransferase (ALT/SGPT) 6, Alkaline Phosphatase 63, Total Protein 5.3L, Albumin 2.7L Microbiology 07/13/22 MRSA Screen - Final, Complete MRSA not isolated Assessment and Plan Assessment Left Hip Primary OA s/p DAPHNIE Problem List Left Hip Primary OA s/p DAPHNIE Plan PT/OT DVT Prophylaxis Placement is current issue Final Diagonsis Left Hip Primary OA s/p DAPHNIE Level of the visit: Level 3 (global) TESFAYE LAMB MD July 16, 2022 11:33
--- NOTE | 2022-07-16 12:59 | Occupational Ther Daily Note ---
OT Current Status-Daily Note Subjective Patient on phone on arrival and OT requested to return, OT returns and patient request to ambulate. Mental Status/Objective Patient Orientation: Person, Place, Situation (patient angry and confused w/ DC plan) ADL-Treatment Therapy Code Descriptions/Definitions Functional [place] Measure: 0=Not Assessed/NA 4=Minimal Assistance 1=Total Assistance 5=Supervision or Setup 2=Maximal Assistance 6=Modified [place] 3=Moderate Assistance 7=Complete IndependenceSCALE: Activities may be completed with or without assistive devices. 7-Ltvqholfua-exhznwp completes the activity by him/herself with no assistance from a helper. 5-Set-up or Clean-up Assistance-helper sets up or cleans up; patient completes activity. [place] assists only prior to or following the activity. 4-Supervision or Touching Assistance-helper provides verbal cues and/or touching/steadying and/or contact guard assistance as patient completes activity. Assistance may be provided throughout the activity or intermittently. 3-Partial/Moderate Assistance-helper does LESS THAN HALF the effort. [place] lifts, holds or supports trunk or limbs, but provides less than half the effort. 2-Substantial/Maximal Assistance-helper does MORE THAN HALF the effort. [place] lifts or holds trunk or limbs and provides more than half the effort. 3-Cidlzzxup-seryno does ALL the effort. Patient does none of the effort to complete the activity. Or, the assistance of 2 or more helpers is required for the patient to complete the activity. If activity was not attempted, code reason: 7-Patient Refused. 9-Not Applicable-not attempted and the patient did not perform the activity before the current illness, exacerbation or injury. 10-Not Attempted due to Environmental Limitations-(lack of equipment, weather restraints, etc.). 88-Not Attempted due to Medical Conditions or Safety Concerns. Eating (QC): 6 Oral Hygiene (QC): 5 Shower/Bathe Self (QC): 7 Upper Body Dressing (QC): 5 Lower Body Dressing (QC): 4 (requires assist w/ dressing tools, and safety) On/Off Footwear: 4 Toileting Hygiene (QC): 4 Toilet Transfer (QC): 5 Education OT Patient Education: Correct positioning, Exercise program, Modified ADL techniques, Progress toward Goal/Update tx plan, Purpose of tx/functional activities, Reviewed precautions, Rehab process, Safety issues, Transfer techniques, Use of adapted equipment Teaching Recipient: Patient Teaching Methods: Demonstration, Discussion Response to Teaching: Reinforcement Needed OT Nursing Home Goals Nursing Home Goals Eating (QC): 6 Oral Hygiene (QC): 6 Toileting Hygiene (QC): 6 Shower/Bathe Self (QC): 6 Upper Body Dressing (QC): 6 Lower Body Dressing (QC): 6 On/Off Footwear (QC): 6 1=Demonstrate adherence to instructed precautions during ADL tasks. 2=Patient will verbalize/demonstrate understanding of assistive devices/modifications for ADL. 3=Patient will improve strength/tolerance for activity to enable patient to perform ADL's. OT Education/Plan Problem List/Assessment Assessment: Decreased Safety Aware, Impaired Self-Care Skills Discharge Recommendations Plan/Recommendations: Continue POC Treatment Plan/Plan of Care Treatment,Training & Education: Yes Patient would benefit from OT for education, treatment and training to promote independence in ADL's, mobility, safety and/or upper extremity function for ADL's. Plan of Care: ADL Retraining, Functional Mobility, Group Exercise/Act as Ind, UE Funct Exercise/Act Treatment Duration: July 18, 2022 Frequency: 3 times per week (3-5 times per week) Estimated Hrs Per Day: .25 hour per day Rehab Potential: Good all needs met Time Start Time: 10:36 Stop Time: 10:48 DATE: July 16, 2022 Total Time Billed (hr/min): 12 Billed Treatment Time ADL 12 min EDUARDO HERNÁNDEZ OT July 16, 2022 12:59
--- NOTE | 2022-07-16 13:30 | Progress Note ---
Subjective Date Seen by a Provider: July 16, 2022 Time Seen by a Provider: 11:15 Subjective/Events-last exam Pt doing well this am. No new or increasing pain, predictable pain with post op hip. Good UOP and BM s/p bowel regimen. Pt able to ambulate with assistance, unable to get out of bed alone. Denies n/v/f/c. BP under better control. Pt eating and drinking well and using incentive spirometer. Pt stable and ready for dc, working on placement (trying to get [place] approval for SNF/rehab). Objective Exam Last Set of Vital Signs Vital Signs Date Time Temp Pulse Resp B/P (MAP) Pulse Ox O2 Delivery O2 Flow Rate FiO2 07/16/22 11:28 36.8 66 18 147/67 (93) 96 Room Air 07/13/22 10:20 1.00 Capillary Refill : I&O Intake and Output 07/16/22 00:00 Intake Total 3950 ml Output Total 1650 ml Balance 2300 ml Intake Oral 1950 ml IV Total 2000 ml Output Urine Total 1650 ml General: Alert, Oriented X3, Cooperative, No Acute Distress HEENT: Atraumatic, PERRLA Neck: Supple, No JVD, No Thyromegaly Lungs: Clear to Auscultation, Normal Air Movement Heart: Regular Rate, Normal S1, Normal S2, No Murmurs Abdomen: Normal Bowel Sounds, Soft, No Tenderness, No Hepatosplenomegaly, No Masses Extremities: No Clubbing, No Cyanosis, No Edema, Normal Pulses, No Tenderness/Swelling Skin: No Rashes, No Breakdown, No Significant Lesion Results Lab Laboratory Tests 07/16/22 05:00: White Blood Count 8.4, Red Blood Count 3.28L, Hemoglobin 9.9L, Hematocrit 31L, Mean Corpuscular Volume 93, Mean Corpuscular Hemoglobin 30, Mean Corpuscular Hemoglobin Concent 33, Red Cell Distribution Width 12.2, Platelet Count 130, Mean Platelet Volume 11.6, Immature Granulocyte % (Auto) 0, Neutrophils (%) (Auto) 73, Lymphocytes (%) (Auto) 16, Monocytes (%) (Auto) 10, Eosinophils (%) (Auto) 1, Basophils (%) (Auto) 0, Neutrophils # (Auto) 6.1, Lymphocytes # (Auto) 1.3, Monocytes # (Auto) 0.8, Eosinophils # (Auto) 0.1, Basophils # (Auto) 0.0, Immature Granulocyte # (Auto) 0.0, Percent Immature Platelet Fraction 6.4, Sodium Level 141, Potassium Level 4.1, Chloride Level 113H, Carbon Dioxide Level 20L, Anion Gap 8, Blood Urea Nitrogen 16, Creatinine 1.19, Estimat Glomerular Filtration Rate 63, BUN/Creatinine Ratio 13, Glucose Level 97, Calcium Level 8.1L, Corrected Calcium 9.1, Total Bilirubin 0.5, Aspartate Amino Transf (AST/SGOT) 31, Alanine Aminotransferase (ALT/SGPT) 6, Alkaline Phosphatase 63, Total Protein 5.3L, Albumin 2.7L Microbiology 07/13/22 MRSA Screen - Final, Complete MRSA not isolated Assessment/Plan Assessment/Plan Assess & Plan/Chief Complaint Left Hip Replacement - ctm, pain control - cont working with PT/OT Hypotensive episodes (resolved) - stable now, CTM closely KATIE (resolved) - Cr 1.84 (07/15) -> 1.19 (07/16) - CTM Constipation (resolved) - start bowel regimen - ctm with pain meds Chronic issues: HTN - Bp's more stable, ctm HLD - home statin, ctm NADIYA MCDOWELL July 16, 2022 13:30
--- NOTE | 2022-07-16 14:29 | Physical Therapy Daily Note ---
PT Daily Note-Current Subjective Patient agrees to PT. Pain Section J - Health Conditions 1. Rarely or not at all 2. Occasionally 3. Frequently 4. Almost constantly 8. Unable to answer Pain Effect on Sleep: 1 Pain Interference with Therapy: 1 Pain Interference w/Day-to-Day: 1 Mental Status Patient Orientation: Normal For Age Transfers SCALE: Activities may be completed with or without assistive devices. 1-Akgreolxvb-rakxbui completes the activity by him/herself with no assistance from a helper. 5-Set-up or Clean-up Assistance-helper sets up or cleans up; patient completes activity. [place] assists only prior to or following the activity. 4-Supervision or Touching Assistance-helper provides verbal cues and/or touching/steadying and/or contact guard assistance as patient completes activity. Assistance may be provided throughout the activity or intermittently. 3-Partial/Moderate Assistance-helper does LESS THAN HALF the effort. [place] lifts, holds or supports trunk or limbs, but provides less than half the effort. 2-Substantial/Maximal Assistance-helper does MORE THAN HALF the effort. [place] lifts or holds trunk or limbs and provides more than half the effort. 1-Egphkawyf-vghwbo does ALL the effort. Patient does none of the effort to complete the activity. Or, the assistance of 2 or more helpers is required for the patient to complete the activity. If activity was not attempted, code reason: 7-Patient Refused. 9-Not Applicable-not attempted and the patient did not perform the activity before the current illness, exacerbation or injury. 10-Not Attempted due to Environmental Limitations-(lack of equipment, weather restraints, etc.). 88-Not Attempted due to Medical Conditions or Safety Concerns. Sit to Stand (QC): 4 Chair/Oyi-od-Tgxrq Xfer(QC): 4 Weight Bearing Right Lower Extremity: Right Full Weight Bearing Left Lower Extremity: Left Weight Bearing/Tolerated Gait Training Distance: 500' Walk 10 feet (QC): 4 Walk 50 ft with 2 Turns(QC): 4 Walk 150 ft (QC): 4 Gait Assistive Device: FWW steady gait sequence with VC's for heel toe gait Exercises Seated Therapy Exercises: Ankle pumps, Long arc quads Seated Reps: 15 Assessment Patient tolerated treatment well and remains up in recliner with needs met. Patient improved ambulation distance. PT Truss Assembler Goals Truss Assembler Goals PT Intermediate Goals Time Frame: August 01, 2022 Roll Left & Right (QC): 6 Sit to Lying (QC): 6 Lying-Sitting on Side/Bed(QC): 6 Sit to Stand (QC): 6 Chair/Kyc-us-Ggzkt Xfer(QC): 6 Toilet Transfer (QC): 6 Walk 10 feet (QC): 4 Walk 50ft with 2 Turns (QC): 4 Walk 150 ft (QC): 4 1 Step (curb) (QC): 4 4 Steps (QC): 4 PT Plan Treatment/Plan Treatment Plan: Continue Plan of Care Treatment Plan: Bed Mobility, Education, Functional Activity Yessica, Functional Strength, Gait, Safety, Therapeutic Exercise, Transfers Treatment Duration: August 01, 2022 Frequency: 11 times per week Estimated Hrs Per Day: .5 hour per day Patient and/or Family Agrees t: Yes Time Time In: 1405 Time Out: 1415 DATE: July 16, 2022 Total Billed Treatment Time: 10 Total Billed Treatment 1 visit FA 10 min LANDON RENEE PT July 16, 2022 14:28
[2022-07-16 15:32] VITALS: BP 149/72
[2022-07-16] MEDS: NS IV 1000 ML 1,000 ML IV SCH ×2 (15:53)
== END ==
LOC: SDC 05:55 → EDSTATUS 07:30 → 4TH 10:40
PROVIDERS: ATTEND Orthopaedic Surgery
DX: M16.12 Unilateral primary osteoarthritis, left hip (principal); E78.5 Hyperlipidemia, unspecified; I10 Essential (primary) hypertension; Z87.891 Personal history of nicotine dependence
CPT/HCPCS: 72170; 87081; 94664

== ENCOUNTER → 2022-07-28 | Outpatient (CLI) | payer OTHER ==
[~2022-07-28] MED LIST changes: -ACETAMINOPHEN 500 MG TAB (TYLENOL) PO PRN; +ASPI-1238 PO; -BISACODYL 5 MG (DULCOLAX) TABLET PO PRN; -GLYCOPYRROLATE 0.2 MG/ML (ROBINUL) 2 ML VIAL ONE; -ISOFLURANE (FORANE) 15 ML/15 MIN INHALATION ONE; -LACTATED RINGERS 1,000 ML IV PRN; -LIDOCAINE PF 2% 5 ML (XYLOCAINE) VIAL ONE; -MEPERIDINE (DEMEROL) INJ 50 MG/ML IVP ONE; -MIDAZOLAM 2 MG/2 ML (VERSED) VIAL ONE; -MILK OF MAGNESIA 400 MG/5 ML 30 ML UDC PO PRN; -NON-FORMULARY MEDICATION 1 EA EA (Simvastatin 40 MG) PO SCH; -NS (IVPB) 250 ML IV PRN; -NS IV 1000 ML 1,000 ML IV SCH; -NS IV 1000 ML 1,000 ML ONE; -ONDANSETRON 4 MG/2 ML (SDV) Z0FRAN IV PRN; -ONDANSETRON 4 MG/2 ML (SDV) Z0FRAN IVP PRN; -ONDANSETRON 4 MG/2 ML (SDV) Z0FRAN ONE; +OXC5T PO; -ROCURONIUM 50 MG/5 ML (ZEMURON) VIAL IV ONE; -ROPIVACAINE 5MG/ML 30ML VIAL ONE; -ROSUVASTATIN 20 MG (CRESTOR) TABLET PO SCH; -SEVOFLURANE (ULTANE) 15 ML INHAL SOLN ONE; -TRANEXAMIC ACID 100 MG/ML 10 ML INJECTION ONE; -TRANEXAMIC ACID INJECTION 1,000 MG in NS (IVPB) 50 ML IV ONE; -amLODIPine 10 MG (NORVASC) TAB PO SCH; -ceFAZolin INJECTION 2,000 MG in NS (IVPB) 50 ML IV ONE; -cloNIDine 0.1 MG (CATAPRES) TAB PO PRN; -fentaNYL INJ 100 MCG/2 ML AMP IVP ONE; -fentaNYL INJ 100 MCG/2 ML AMP ONE; -lisINopril 20 MG (PRINIVIL) TABLET PO SCH; -morphine INJ 10 MG/ML 1ML (SYR OR VIAL) IVP ONE; -morphine INJ 4 MG/ML 1 ML (VIAL/SYRINGE) IVP PRN; -proPOfol 200 MG/20 ML (DIPRIVAN) VIAL IV ONE
== END ==
LOC: ORTHO 08:28
PROVIDERS: ATTEND Orthopaedic Surgery
DX: Z47.89 Encounter for other orthopedic aftercare (principal)

== ENCOUNTER → 2022-08-27 | Outpatient (CLI) | payer OTHER ==
--- NOTE | 2022-08-27 15:40 | Diagnostic Imaging Report ---
Indication: Left hip replacement. Time of Exam: 8:40 AM 2 views of the left tibia-fibula demonstrate postop changes of total hip arthroplasty. Prosthetic elements appear to be in good position without fracture or loosening. Impression: Satisfactory postop left hip. Dictated by: Dictated on workstation # [id number]
== END ==
LOC: ORTHO 08:33
PROVIDERS: ATTEND Orthopaedic Surgery
DX: M25.552 Pain in left hip (principal); Z96.642 Presence of left artificial hip joint
CPT/HCPCS: 73502

== ENCOUNTER → 2022-10-08 | Outpatient (CLI) | payer OTHER | LOC: ORTHO 08:41 | PROVIDERS: ATTEND Orthopaedic Surgery | DX: Z47.89 Encounter for other orthopedic aftercare (principal) ==